=== PATIENT | female | born 1940 | race Caucasian/White ===

== ENCOUNTER → 2017-01-23 | Outpatient (CLI) | payer BC ==
[~2017-01-23] MED LIST: ASPEC81 PO; ATEN-173 PO; BNT20 PO; CLR10 PO; DOXY25TA11 PO; DOXY25TA21 PO; DYZ PO; HYDR-5688 PO; MAGN400T6 PO; MXRAIN INH; NAPR220T PO; NTRSL3 UT; POTA-327 PO; PRLSR20 PO; SIMV10TA2 PO; VERA120T15 PO
[2017-01-23 09:48] LABS: BASO % 0.5 %; BASO ABS # 0.03 K/uL (0-0.2); COMPLETE YES; EOS % 5.3 %; HEMATOCRIT 39.6 % (37-47); IG% 0.2 %; LYMPH ABS # 1.54 K/uL (1.2-3.4); MEAN CELL VOLUME 95.2 fL (80-100); MEAN CORPUSCULAR HGB CONC 33.6 g/dl (32-36); MEAN PLATELET VOLUME 10.2 fL (7.4-10.4); MONO % 8.4 %; NEUT % 57.6 %; PLATELET COUNT 138 K/uL (130-400); RED BLOOD COUNT 4.16 M/uL (4.2-5.4)
[2017-01-23 10:59] LABS: ALKALINE PHOSPHATASE 78 U/L (45-117); ALT/SGPT 20 U/L (12-78); AST/SGOT 20 U/L (15-37); BLOOD UREA NITROGEN 21 mg/dl (7-18); BUN/CREATININE RATIO 24.9 (10-20); CALCIUM 8.9 mg/dl (8.5-10.1); CARBON DIOXIDE 30 mmol/L (21-32); CHLORIDE 104 mmol/L (98-107); CHOLESTEROL 134 mg/dl (0-200); CHOLESTEROL/HDL RATIO 2.1; CREATININE 0.85 mg/dl (0.60-1.20); GLUCOSE 79 mg/dl (70-99); HDL CHOLESTEROL 64 mg/dl; POTASSIUM 3.8 mmol/L (3.5-5.1); SODIUM 142 mmol/L (136-145)
[2017-01-23 11:12] LABS: LDL CHOLESTEROL CALCULATED 53 mg/dl; TRIGLYCERIDES 87 mg/dl (0-150); VERY LOW DENSITY LIPOPROT CALC 17 mg/dl
== END | disposition home or self-care (01) ==
LOC: C.LAB1850 08:43
PROVIDERS: ATTEND Internal Medicine
DX: I10 Essential (primary) hypertension (principal); R20.0 Anesthesia of skin; R20.2 Paresthesia of skin; E78.5 Hyperlipidemia, unspecified; E55.9 Vitamin D deficiency, unspecified; R00.2 Palpitations

== ENCOUNTER → 2017-02-17 | Outpatient (CLI) | payer BC ==
--- NOTE | 2017-02-17 13:59 | DIAGNOSTIC IMAGING REPORT ---
RIGHT SHOULDER MIN 2 VIEWS ROUTINE CLINICAL HISTORY: Right shoulder pain following fall. COMPARISON: None FINDINGS: There are right axillary surgical clips. There is severe osteoarthritis of the right glenohumeral joint and moderate arthritis of the acromioclavicular joint. A small calcific density adjacent to the right right is likely chronic. There is no acute fracture. IMPRESSION: 1. No acute fracture or dislocation of the right shoulder. 2. Severe arthritis of the right glenohumeral joint and moderate arthritis of the acromioclavicular joint. Electronically signed by: Elvin Ragsdale M.D. 02/17/2017 1:58 PM Dictated Date/Time: 02/17/2017 1:56 PM
--- NOTE | 2017-02-17 14:07 | DIAGNOSTIC IMAGING REPORT ---
CT OF THE CHEST WITHOUT IV CONTRAST CLINICAL HISTORY: Pulmonary nodule. COMPARISON STUDY: CT scan of the cervical spine dated 02/27/2016 CT DOSE: 363.43 mGy.cm TECHNIQUE: CT of the thorax was performed from the thoracic inlet to the lung bases. Images are reviewed in the axial, sagittal, and coronal planes. IV contrast was not administered for this examination. FINDINGS: Thyroid: Imaged portions of the thyroid gland are normal in appearance. 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 There is no aneurysmal aortic dilatation. Heart: The heart is normal in size and configuration, without pericardial effusion. Lungs and pleural spaces: No pleural effusions are visualized. There is a stable 3.5 mm right upper lobe pulmonary nodule. No further follow-up of this lesion is advocated. There are tiny subpleural densities within the right middle lobe. Distribution raises the possibility of post radiation change. Mediastinum: There is no mediastinal lymphadenopathy. Natalia: There is no evidence of pathologic hilar adenopathy given the limitations of a noncontrast study Axilla: There is no evidence of pathologic axillary lymphadenopathy Upper abdomen: Partially visualized upper abdominal viscera is within normal limits. Skeletal structures: There is a 7 mm T5 lytic focus of questionable clinical significance. IMPRESSION: 1. Stable 3.5 mm right upper lobe pulmonary nodule. No further follow-up of this nodule is advocated 2. Tiny subpleural densities within the right middle lobe. The distribution raises the possibility of post relation change Electronically signed by: Darryl Woodard M.D. 02/17/2017 2:05 PM Dictated Date/Time: 02/17/2017 1:57 PM
== END | disposition home or self-care (01) ==
LOC: C.CTS 13:15
PROVIDERS: ATTEND Internal Medicine
DX: M25.511 Pain in right shoulder (principal); R91.1 Solitary pulmonary nodule

== ENCOUNTER 2017-06-18 14:36 | Emergency (ER) | payer BC ==
[~2017-06-18] VITALS: Ht 167.6 cm; Wt 67.8 kg
[~2017-06-18 14:36] MED LIST changes: -DOXY25TA21 PO; -HYDR-5688 PO
[2017-06-18 14:41] VITALS: TEMP 36.5; Ht 167.6 cm; Wt 67.8 kg
[2017-06-18] MEDS ORDERED: DOXY25TA21 PO (15:26)
[2017-06-18] MEDS ORDERED: BNT20 PO (15:26)
--- NOTE | 2017-06-18 15:47 | DIAGNOSTIC IMAGING REPORT ---
HEAD CT NONCONTRAST CT DOSE: 905.55 mGy.cm HISTORY: fall onto face with headache, +n/-v, dizziness, facial pain and neck p TECHNIQUE: Multiaxial CT images of the head were performed without the use of intravenous contrast. Automated exposure control was utilized for this study. A dose lowering technique was utilized adhering to the principles of ALARA. Comparison: Head CT 02/27/2016. Findings: The paranasal sinuses and mastoid air cells are clear. The calvarium and skull base are intact. There is no mass, hematoma, midline shift, acute infarct. White matter hypodensity is nonspecific but suggestive of microvascular ischemic change. The ventricles and sulci demonstrate mild age-related involutional changes. Impression: No significant change compared to the prior study. No acute intracranial abnormality. Electronically signed by: Keith Cohen M.D. 06/18/2017 3:46 PM Dictated Date/Time: 06/18/2017 3:43 PM
--- NOTE | 2017-06-18 15:53 | DIAGNOSTIC IMAGING REPORT ---
CERVICAL SPINE CT CT DOSE: HISTORY: Neck pain. Fall. TECHNIQUE: Multiaxial CT images of the cervical spine were performed and reformatted in the sagittal and coronal plane without the use of contrast. A dose lowering technique was utilized adhering to the principles of ALARA. COMPARISON: Cervical spine CT 02/27/2016. FINDINGS: No fractures. Stable 1 mm of anterolisthesis of C2 on C3. Moderate to severe disc space narrowing from C3 through T2. There are associated endplate osteophytes. This is not significantly changed. Multiple subcentimeter hypodense nodule within the right thyroid lobe. There is also a dominant 12 mm hypodense nodule within the right thyroid lobe. These are not significantly changed.. Prevertebral soft tissues and the C1-C2 interval are intact. No pneumothorax. IMPRESSION: No fractures within the cervical spine. Moderate to severe multilevel cervical spondylosis. Electronically signed by: Keith Cohen M.D. 06/18/2017 3:51 PM Dictated Date/Time: 06/18/2017 3:46 PM
--- NOTE | 2017-06-18 15:55 | DIAGNOSTIC IMAGING REPORT ---
CT SCAN OF THE FACIAL BONES WITHOUT IV CONTRAST CLINICAL HISTORY: Fall. COMPARISON STUDY: CT of the brain performed concurrently on 06/18/2017. TECHNIQUE: High-resolution CT scan of the facial bones is performed. Images are reviewed in the axial, sagittal, and coronal planes. IV contrast was not administered for this examination. A dose lowering technique was utilized adhering to the principles of ALARA. FINDINGS: The skeletal structures are osteopenic. There are comminuted bilateral nasal bone fractures, minimally depressed on the right. The bony nasal septum appears intact. The bony orbits are intact and the orbital contents are within normal limits noting bilateral ocular lens implants. The zygomatic arches and pterygoid plates are preserved. The maxilla and mandible are intact. Degenerative change is noted at the temporomandibular joints. There are no layering blood products within the paranasal sinuses. Findings suggest previous paranasal sinus surgery. Trace mucosal thickening seen in the right frontal sinuses and the ethmoid sinuses. The mastoid air cells are clear. The visualized calvarium and upper cervical spine are maintained noting advanced cervical spondylosis. Partially imaged brain parenchyma is within normal limits noting age-related involutional change. IMPRESSION: 1. There are comminuted bilateral nasal bone fractures. 2. No additional facial bone fracture is seen. Electronically signed by: Terence Reyes M.D. 06/18/2017 3:53 PM Dictated Date/Time: 06/18/2017 3:47 PM
--- NOTE | 2017-06-18 16:17 | EMERGENCY ROOM VISIT NOTE ---
ED Visit Note First contact with patient: 14:41 This Patient was discussed with the physician Armhole Baster Hand, Rohan Rodriguez PA-C. The pertinent historical and physical exam findings were confirmed. I agree with the studies ordered and with the interpretations of these studies. I agree with the disposition and care plan.
[2017-06-18 16:42] VITALS: BP 121/66; PULSE 60; O2SAT 95
[2017-06-18] MEDS ORDERED: HYDR-5688 PO (16:43)
[2017-06-18] MEDS ORDERED: HYDROCODONE/ACETAMOPHEN 5/325MG TAB PO ONE (16:45)
--- NOTE | 2017-06-19 00:14 | EMERGENCY ROOM VISIT NOTE ---
ED Visit Note First contact with patient: 14:41 Chief Complaint: Thinking may have a head injury and a broken nose. History of Present Illness: Ms. Stroud is a 77-year-old white female who ambulates into the ED accompanied by her complaining of a possible head injury and nasal fracture. Historically patient reports she felt 2 years ago while on a cruise and sustained a concussion. Patient reports 2 days ago she was pushing a cart across the room. The car ran into a small bump on the floor and she pushed harder. As she pushed harder the car gave way and she fell onto her face. She reports before the fall she was not experiencing lightheadedness dizziness, the time of the fall she did not have a loss of consciousness. She does report at the time of the fall she had bilateral nasal bleeding that she reports was severe. She applied direct pressure to the nasal bones and felt crepitus but reports she control bleeding. Since the fall she reports she has been having a global headache and nasal pain. She describes her headache as an achy sensation. She rates her discomfort 6/10. The pain is nonradiating. Her pain worsens when she moves in the sitting to standing position. She has not identified any alleviating factors related to the pain. She has been using ibuprofen without relief of her discomfort. Associated with her pain she also reports she has having nasal plan. She describes this as a throbbing discomfort. She rates her discomfort 4/10. Her pain is nonradiating. Her pain worsens with palpation. She has not identified any alleviating factors related to the pain as previously noted she has been using ibuprofen without relief of this discomfort. Associated with her symptoms she reports she is having lightheadedness and dizziness, neck pain, nausea but no vomiting. She denies visual changes, hearing changes, difficulty speaking, difficulty swallowing, difficulty coordinating body movements, chest pain, shortness of breath, abdominal pain, extremity pain, extremity weakness/numbness/tingling. Review of Systems: As noted above in history of present illness. All body systems were reviewed and found to be negative as noted above. Past Medical History: As noted above and breast cancer, asthma, aortic dissection, hypertension, coronary artery disease, obstructive sleep apnea, unspecified stomach disorder, status post bilateral mastectomies, cholecystectomy, tonsillectomy and bilateral knee arthroplasties. Current Medications: Medications Dose Route/Sig Max Daily Dose Days Date Category Dose Instructions Ra Sleep Aid (Doxylamine Succinate (Sleep)) 25 Mg Tab 25 Mg PO HS 06/18/17 Reported Dicyclomine HCl 20 Mg Tab 20 Mg PO BID 06/18/17 Reported Aleve (Naproxen Sodium) 220 Mg Tab 220 Mg PO BID 02/27/16 Reported Nitrostat (Nitroglycerin) 0.3 Mg Tab 0.3 Mg UT PRN 06/27/11 Reported Ecotrin Or Generic * (Aspirin) 81 Mg Ectab 81 Mg PO DAILY 06/27/11 Reported Calan (Verapamil HCl) 120 Mg Tab 180 Mg PO 11/30/08 Reported Tenormin (Atenolol) 25 Mg Tab 25 Mg PO DAILY 11/30/08 Reported Prilosec (Omeprazole) 20 Mg Capcr 20 Mg PO DAILY 11/30/08 Reported Claritin (Loratadine) 10 Mg Tab 10 Mg PO DAILY 11/30/08 Reported Zocor (Simvastatin) 10 Mg Tab 20 Mg PO QPM 11/30/08 Reported Allergies to Medications: Chlorhexidine, penicillins, iodine, sulfa. Social History: Patient is not employed; she lives with her and feels safe in her home environment; she denies tobacco use; she admits to social alcohol use. Physical Examination: Vital Signs: Date Time Temp Pulse Resp B/P (MAP) Pulse Ox O2 Delivery O2 Flow Rate FiO2 06/18/17 16:42 60 18 121/66 95 Room Air 06/18/17 14:41 36.5 69 16 134/83 97 Room Air GENERAL: 77-year-old female in mild to moderate distress due to pain, nontoxic- appearing, afebrile and hemodynamically stable. NEUROLOGICAL: Awake, alert and oriented to person, place and time. Answering questions appropriately and following commands. Good hand eye coordination. Cranial nerves II through XII grossly intact. Negative pronator drift test. Good short-term and long-term recall. Normal rapid on a movements of the hands and fingers. Able to spell words backwards. SKIN: Warm, dry and pink. Face: Nose: Superficial abrasions to the right nostril with no active bleeding or signs of infection. HEENT: Atraumatic and normocephalic. Skull: Mild tenderness in the frontal area without bony deformity, bony crepitus, swelling or ecchymosis. No raccoon' s eyes or nicole signs. No drainage from the ears of the nares; no hemotympanum. Face: Nasal tenderness over both nasal bones and over the nostrils. There is deformity with the nose deviated to the left. Nostrils are patent. No blood in the nasal vault. PERRLA. EOMI without nystagmus. Sclera white and conjunctiva pink. No malocclusion. No intraoral trauma. Airway patent. Speech normal. Trachea midline. No jugular venous distention. BACK: Moderate tenderness over the entire cervical spine including the bony processes and is paraspinous musculature. I do not appreciate any bony step- offs, swelling, ecchymosis or bony crepitus. Do not appreciate any paraspinous muscle spasms. No tenderness throughout the thorax or the lumbar bony spine. No CVA tenderness. THORAX: Lungs sounds are clear to auscultation and equal bilaterally with symmetrical chest wall. No crepitus, tenderness, subcutaneous air or deformities noted. HEART: Regular rate and rhythm. No gallops, rubs or murmurs are appreciated. ABDOMEN: Flat, soft and nontender. Positive bowel sounds in all quadrants. No guarding, rigidity or organomegaly. EXTREMITIES: Moves all extremities well on command and with purpose. All distal neurovascular statuses are intact and equal bilaterally. No tenderness over the shoulders, elbows, forearms, wrists, hips, knees, ankles. 4/5 muscle strength in all movements of the upper and lower extremity joints against resistance. ED Course: Patient is assessed as noted above. Patient's medication list was reviewed. Cervical Spine CT: Was reviewed by myself and read by the radiologist showing no fractures of the cervical spine. Moderate to severe multilevel cervical spondylolysis. Head CT: Was reviewed by myself and read by the radiologist showing no acute intracranial abnormality. This was compared to her previous and shows no significant changes. Facial CT: Was reviewed by myself and read by the radiologist showing bilateral comminuted nasal bone fractures. Patient was given one [place] 5/325 mg tablet by mouth for pain. Patient was assessed multiple times during her stay in the emergency department. Patient's case was reviewed with Dr. Angulo; he independently assessed the patient and we agreed on diagnostic approach, treatment, disposition and plan. Patient were educated about today's findings and instructed on her treatment plan; she verbalized understanding and agreement with this plan. Clinical Impression: Bilateral comminuted nasal bone fractures. Closed head injury. Disposition: Patient discharged home in stable condition accompanied by her ; prior to departure she was reassessed and subjectively reported she was having more pain in the face and rated her discomfort 8/10. Plan: Patient was encouraged to continue her current medications as prescribed. Patient was placed on a sliding pain medication scale of acetaminophen and [place] ; she was given appropriate narcotic precautions and her name was checked in the state database and no red flags were noted. Patient was encouraged to rest for the next few days. Patient was encouraged use ice on her nasal pain and swelling. Patient was encouraged to use a walker to help her balance. Patient was educated on signs of worsening head injury. Patient was encouraged to follow-up with family physician for recheck and possible referral to neurology, concussion clinic, ENT and/or plastic surgery. Patient was encouraged return ED for worsening/uncontrolled pain, worsening signs of head injury or any new/concerning symptoms.
== END 2017-06-18 16:53 | disposition home or self-care (01) ==
LOC: C.EDB 14:38
DX: S02.2XXA Fracture of nasal bones, initial encounter for closed fracture (principal); S09.90XA Unspecified injury of head, initial encounter; W19.XXXA Unspecified fall, initial encounter; I10 Essential (primary) hypertension; I25.10 Atherosclerotic heart disease of native coronary artery without angina pectoris; J45.909 Unspecified asthma, uncomplicated; G47.33 Obstructive sleep apnea (adult) (pediatric); Z85.3 Personal history of malignant neoplasm of breast; Z87.19 Personal history of other diseases of the digestive system; Z90.13 Acquired absence of bilateral breasts and nipples; Z90.49 Acquired absence of other specified parts of digestive tract; Z79.82 Long term (current) use of aspirin; Z79.899 Other long term (current) drug therapy; Z88.0 Allergy status to penicillin; Z88.2 Allergy status to sulfonamides; Z88.8 Allergy status to other drugs, medicaments and biological substances

== ENCOUNTER → 2017-10-29 | Outpatient (CLI) | payer BC ==
[~2017-10-29] MED LIST changes: -DOXY25TA11 PO; +DOXY25TA21 PO; -DYZ PO; +HYDR-5688 PO; -MAGN400T6 PO; -MXRAIN INH; -POTA-327 PO
[2017-10-29 14:42] LABS: BLOOD UREA NITROGEN 22 mg/dl (7-18); CREATININE 0.79 mg/dl (0.60-1.20)
== END | disposition home or self-care (01) ==
LOC: C.LAB 13:24
PROVIDERS: ATTEND Physician Assistant
DX: H93.11 Tinnitus, right ear (principal)

== ENCOUNTER → 2017-10-30 | Outpatient (CLI) | payer BC ==
[~2017-10-30] MED LIST changes: +GADAVIST IV PRN
--- NOTE | 2017-10-30 10:45 | DIAGNOSTIC IMAGING REPORT ---
BRAIN COMBO FOR IAC HISTORY: 77 years-old Female R26.89 Balance disorderPatient has difficulty with balance. Ple chronic difficulty with balance seen. The patient had reported multiple falls and concussions COMPARISON: MRI the brain 08/05/2008, CT head 06/18/2017 TECHNIQUE: Multiplanar multisequence MRI of the brain was obtained both with and without the use of 6 mL Gadavist utilizing internal auditory canal protocol. FINDINGS: The large [id number] laboratory apparatus glass blower localizer images demonstrate no gross abnormality. There is no restricted diffusion to suggest acute infarction. Minimal T2 shine through is noted within the left parieto-occipital lobe on image 16 series 4. The midline fractures including the corpus callosum, brainstem, optic chiasm, infundibulum, pituitary and pineal glands are unremarkable in the sagittal T1 series. No cerebellar tonsillar herniation. Degenerative changes of the imaged cervical spine. No pathologic blooming artifact identified. There is no acute intracranial hemorrhage, midline shift, abnormal extra-axial collections or hydrocephalus. Mild to moderate atrophy has slightly progressed and there is progressively worsened multifocal patchy and somewhat confluent areas of T2/FLAIR prolongation within the subcortical, deep and periventricular white matter of the cerebral hemispheres bilaterally suggesting chronic microvascular ischemic changes. The major flow voids at the level of the skull base appear patent. Mastoid air cells are clear. Paranasal sinuses are also generally clear. The orbits appear symmetric. Soft tissues and calvarium are unremarkable. The course of the 7th and 8th cranial nerves are within normal limits bilaterally. No mass of the internal auditory canal or cerebellar pontine angles. The cisternal portions of the bilateral 5th cranial nerves are within normal limits. There is no abnormal intra-axial or extra-axial enhancement identified. No abnormal enhancement of the internal artery canals. IMPRESSION: 1. No acute intracranial abnormality identified. No abnormal enhancement or acute infarction. 2. Bilateral internal auditory canals, 7th and 8th cranial nerves appear to be within normal limits. 3. Progressive mild to moderate brain atrophy with progressively worsened chronic microvascular ischemic changes. The above report was generated using voice recognition software. It may contain grammatical, syntax or spelling errors. Electronically signed by: Patrice Torres M.D. 10/30/2017 10:44 AM Dictated Date/Time: 10/30/2017 10:35 AM
== END | disposition home or self-care (01) ==
LOC: C.MRIBC 09:03
PROVIDERS: ATTEND Physician Assistant
DX: R26.89 Other abnormalities of gait and mobility (principal)

== ENCOUNTER → 2017-11-07 | Outpatient (CLI) | payer BC ==
[~2017-11-07] MED LIST changes: -GADAVIST IV PRN
== END | disposition home or self-care (01) ==
LOC: C.LAB1850 07:52
PROVIDERS: ATTEND Psychiatry & Neurology Neurology
DX: E53.8 Deficiency of other specified B group vitamins (principal); R26.89 Other abnormalities of gait and mobility; G62.9 Polyneuropathy, unspecified

== ENCOUNTER → 2017-12-01 | Outpatient (CLI) | payer BC ==
[2017-12-01 15:19] LABS: BLOOD UREA NITROGEN 20 mg/dl (7-18); CALCIUM 9.5 mg/dl (8.5-10.1); CARBON DIOXIDE 31 mmol/L (21-32); CREATININE 0.74 mg/dl (0.60-1.20); GLUCOSE 83 mg/dl (70-99); POTASSIUM 3.9 mmol/L (3.5-5.1); SODIUM 136 mmol/L (136-145)
== END ==
LOC: C.LABBC 12:48
PROVIDERS: ATTEND Nurse Practitioner Adult Health
DX: I10 Essential (primary) hypertension (principal)

== ENCOUNTER 2017-12-16 19:48 | Emergency (ER) | payer BC ==
[~2017-12-16] VITALS: Ht 162.6 cm; Wt 63.1 kg
[2017-12-16 19:53] VITALS: TEMP 36.8; Ht 162.6 cm; Wt 63.1 kg
[2017-12-16] MEDS ORDERED: ONDANSETRON INJ 2 MG/ML 2 ML VIAL IV STA (20:07)
[2017-12-16] MEDS ORDERED: SODIUM CHLORIDE 0.9% 1000ML 1,000 ML IV STA (20:07)
[2017-12-16] MEDS ORDERED: MoRPHine SULFATE 10 MG/ML CARP/VIAL IV STA (20:07)
[2017-12-16] MEDS ORDERED: ASPI81TA28 PO (20:34)
[2017-12-16] MEDS ORDERED: VERA180T33 PO (20:34)
[2017-12-16] MEDS ORDERED: CHOL20009 PO (20:34)
[2017-12-16] MEDS ORDERED: POTA10CA28 PO (20:34)
[2017-12-16 20:37] LABS: BASO % 0.5 %; BASO ABS # 0.03 K/uL (0-0.2); EOS % 3.6 %; EOS ABS # 0.24 K/uL (0-0.5); HEMOGLOBIN 13.7 g/dL (12.0-16.0); IG# 0.01 K/uL (0.00-0.02); LYMPH % 24.7 %; LYMPH ABS # 1.64 K/uL (1.2-3.4); MEAN CELL VOLUME 96.2 fL (80-100); MEAN CORPUSCULAR HEMOGLOBIN 32.9 pg (25-34); MEAN CORPUSCULAR HGB CONC 34.3 g/dl (32-36); MEAN PLATELET VOLUME 9.6 fL (7.4-10.4); NEUT ABS # 3.92 K/uL (1.4-6.5); PLATELET COUNT 162 K/uL (130-400); RED CELL DISTRIBUTION WIDTH SD 45.3 fL (36.4-46.3); WHITE BLOOD COUNT 6.64 K/uL (4.8-10.8)
[2017-12-16 21:01] LABS: ALBUMIN 3.8 gm/dl (3.4-5.0); CALCIUM 9.4 mg/dl (8.5-10.1); CREATININE 0.75 mg/dl (0.60-1.20); POTASSIUM 3.8 mmol/L (3.5-5.1)
--- NOTE | 2017-12-16 21:03 | DIAGNOSTIC IMAGING REPORT ---
ABD/PELVIS NO IV OR ORAL CONT CLINICAL HISTORY: 77 years-old Female presenting with diffuse abd pain . TECHNIQUE: Multidetector CT of the abdomen and pelvis was performed without the use of intravenous contrast. IV contrast: None. A dose lowering technique was used consistent with the principles of ALARA (as low as reasonably achievable). COMPARISON: 11/02/2007. CT DOSE (mGy.cm): The estimated cumulative dose is 330.72 mGy.cm. FINDINGS: Hogshead Mat Inspector topogram: Cholecystectomy clips. Lung bases: Minimal basilar opacities, likely atelectasis. Normal heart size. No pericardial or pleural effusion. Liver: Normal morphology. Normal density. Biliary: No gross biliary ductal dilatation allowing for noncontrast technique. Gallbladder surgically absent. Pancreas: Normal noncontrast appearance. Spleen: Normal noncontrast appearance. Adrenal glands: Nodular thickening of the left adrenal gland. Right adrenal gland normal. Kidneys and ureters: Normal noncontrast appearance. No nephrolithiasis. No hydronephrosis. Ureters nondistended but poorly visualized in the mid to distal portions. Bladder: Normal. Pelvic organs: Uterus surgically absent. No adnexal masses. Bowel: Diverticulosis of the sigmoid and descending colon. Mild stool burden. No pericolonic inflammatory change. The appendix is not visualized though no inflammatory changes evident in the cecum. Fluid mildly distends the small bowel though no bowel obstruction is evident. No bowel wall thickening. Peritoneal cavity: No free fluid or intraperitoneal gas. Lymph nodes: No gross lymphadenopathy allowing for noncontrast technique. Vasculature: Atherosclerosis of the normal caliber abdominal aorta. Abdominal wall: Diastasis of the rectus abdominis. Postsurgical changes noted in the infraumbilical ventral abdominal wall. Musculoskeletal: Degenerative changes of the spine. IMPRESSION: 1. No acute intra-abdominal pathology. 2. Fluid noted throughout the small bowel without evidence of bowel obstruction or bowel wall thickening. This could relate to the presence of a mild enteritis or celiac disease among other potential etiologies. 3. Diverticulosis. Electronically signed by: Sudhir Shin M.D. 12/16/2017 9:02 PM Dictated Date/Time: 12/16/2017 8:56 PM
[2017-12-16 21:04] LABS: TOTAL PROTEIN 7.1 gm/dl (6.4-8.2)
[2017-12-16 21:58] VITALS: BP 155/73; PULSE 80; O2SAT 98
[2017-12-16] MEDS ORDERED: ONDANSETRON HOME PACK 4MG OD TAB PO ONE (22:00)
--- NOTE | 2017-12-16 22:03 | EMERGENCY ROOM VISIT NOTE ---
History Report prepared by Tana: Sia Bunn Under the Supervision of: Dr. Kevan Neely D.O. First contact with patient: 19:55 Chief Complaint: GI ASSESSMENT Stated Complaint: STOMACH AND BOWEL PAIN History of Present Illness The patient is a 77 year old female who presents to the Emergency Room with complaints of persistent abdominal pain starting at 1730 today. The patient had some soup for dinner and started having terrible abdominal pain soon afterwards. She describes the pain as feeling like she is going to explode. Pain was extremely severe on presentation. She tried drinking some cola to no significant relief. She does not identify anything else that improves or worsens her pain. She has had some looser stool but no diarrhea. She has had some burning with urination which started today. She denies any nausea, vomiting , diarrhea, chest pain, SOB, or rash. She denies any recent antibiotic use. She has a history of cholecystectomy, appendectomy, and hysterectomy. Source of History: patient Onset: 1730 Position: abdomen Symptom Intensity: terrible Quality: other (like she is "going to explode") Timing: other (persistent) Associated Symptoms: + urinary symptoms, No chest pain, No SOB, No nausea, No vomiting, No diarrhea, No rash Review of Systems See HPI for pertinent positives & negatives. A total of 10 systems reviewed and were otherwise negative. Past Medical & Surgical Medical Problems: (1) Aortic dissection (2) Asthma (3) Benign hypertension (4) Coronary artery disease (5) Obesity (6) Obstructive sleep apnea syndrome Surgical Problems: (1) Hx of tonsillectomy (2) S/P cholecystectomy Family History Diabetes mellitus FHx: cancer FHx: gallbladder disease FHx: heart disease Hypertension Social History Smoking Status: Former Smoker Alcohol Use: occasionally Marital Status: Housing Status: lives with significant other Occupation Status: retired Current/Historical Medications Scheduled Aspirin (Aspirin Ec), 81 MG PO DAILY Atenolol (Tenormin), 12.5 MG PO DAILY Cholecalciferol (Vitamin D), 2,000 UNITS PO DAILY Dicyclomine HCl (Dicyclomine HCl), 20 MG PO BID Doxylamine Succinate (Sleep) (Ra Sleep Aid), 25 MG PO HS Loratadine (Claritin), 10 MG PO DAILY Naproxen Sodium (Aleve), 220 MG PO BID Nitroglycerin (Nitrostat), 0.3 MG UT PRN Omeprazole (Prilosec), 20 MG PO DAILY Potassium Chloride (Micro-K Ext Rel), 10 MEQ PO UD Simvastatin (Zocor), 20 MG PO QPM Verapamil Hcl (Calan Sr Ext Rel), 180 MG PO DAILY Allergies Coded Allergies: Iodine (Verified Allergy, Intermediate, RASH TO TOPICAL IODINE, 12/16/17) Adhesives (Verified Allergy, Unknown, RED SKIN, 12/16/17) Penicillins (Verified Allergy, Unknown, 12/16/17) Sulfa Drugs (Verified Allergy, Unknown, 12/16/17) Chlorhexidine (Verified Adverse Reaction, Intermediate, SEVERE BURNING WITH CHG WIPES, 12/16/17) Physical Exam Vital Signs Date Time Temp Pulse Resp B/P (MAP) Pulse Ox O2 Delivery O2 Flow Rate FiO2 12/16/17 19:53 36.8 60 18 188/81 97 Room Air Physical Exam GENERAL: Sitting up in bed, alert, well appearing, well nourished, no distress, non-toxic EYE EXAM: normal conjunctiva. OROPHARYNX: no exudate, no erythema, lips, buccal mucosa, and tongue normal and mucous membranes are moist NECK: supple, no nuchal rigidity, no adenopathy, non-tender LUNGS: Clear to auscultation. Normal chest wall mechanics HEART: no murmurs, S1 normal and S2 normal ABDOMEN: abdomen soft, multiple old abdominal incisions, minimal diffuse tenderness, normo-active bowel sounds, no masses, no rebound or guarding. BACK: Back is symmetrical on inspection and there is no deformity, no midline tenderness, no CVA tenderness. SKIN: no rashes and no bruising UPPER EXTREMITIES: upper extremities are grossly normal. LOWER EXTREMITIES: No pitting edema. NEURO EXAM: Normal sensorium, cranial nerves II-XII grossly intact, normal speech, no gross weakness of arms, no gross weakness of legs. Medical Decision & Procedures ER Provider Diagnostic Interpretation: Radiology results as stated below per my review and the radiologist's interpretation: ABD/PELVIS NO IV OR ORAL CONT CLINICAL HISTORY: 77 years-old Female presenting with diffuse abd pain . TECHNIQUE: Multidetector CT of the abdomen and pelvis was performed without the use of intravenous contrast. IV contrast: None. A dose lowering technique was used consistent with the principles of ALARA (as low as reasonably achievable). COMPARISON: 11/02/2007. CT DOSE (mGy.cm): The estimated cumulative dose is 330.72 mGy.cm. FINDINGS: Advertising Campaign Manager topogram: Cholecystectomy clips. Lung bases: Minimal basilar opacities, likely atelectasis. Normal heart size. No pericardial or pleural effusion. Liver: Normal morphology. Normal density. Biliary: No gross biliary ductal dilatation allowing for noncontrast technique. Gallbladder surgically absent. Pancreas: Normal noncontrast appearance. Spleen: Normal noncontrast appearance. Adrenal glands: Nodular thickening of the left adrenal gland. Right adrenal gland normal. Kidneys and ureters: Normal noncontrast appearance. No nephrolithiasis. No hydronephrosis. Ureters nondistended but poorly visualized in the mid to distal portions. Bladder: Normal. Pelvic organs: Uterus surgically absent. No adnexal masses. Bowel: Diverticulosis of the sigmoid and descending colon. Mild stool burden. No pericolonic inflammatory change. The appendix is not visualized though no inflammatory changes evident in the cecum. Fluid mildly distends the small bowel though no bowel obstruction is evident. No bowel wall thickening. Peritoneal cavity: No free fluid or intraperitoneal gas. Lymph nodes: No gross lymphadenopathy allowing for noncontrast technique. Vasculature: Atherosclerosis of the normal caliber abdominal aorta. Abdominal wall: Diastasis of the rectus abdominis. Postsurgical changes noted in the infraumbilical ventral abdominal wall. Musculoskeletal: Degenerative changes of the spine. IMPRESSION: 1. No acute intra-abdominal pathology. 2. Fluid noted throughout the small bowel without evidence of bowel obstruction or bowel wall thickening. This could relate to the presence of a mild enteritis or celiac disease among other potential etiologies. 3. Diverticulosis. Electronically signed by: Sudhir Shin M.D. 12/16/2017 9:02 PM Dictated Date/Time: 12/16/2017 8:56 PM Laboratory Results 12/16/17 20:15 Red Blood Count 4.16, Mean Corpuscular Volume 96.2, Mean Corpuscular Hemoglobin 32.9, Mean Corpuscular Hemoglobin Concent 34.3, Mean Platelet Volume 9.6, Neutrophils (%) (Auto) 59.0, Lymphocytes (%) (Auto) 24.7, Monocytes (%) (Auto) 12.0, Eosinophils (%) (Auto) 3.6, Basophils (%) (Auto) 0.5, Neutrophils # (Auto ) 3.92, Lymphocytes # (Auto) 1.64, Monocytes # (Auto) 0.80, Eosinophils # (Auto ) 0.24, Basophils # (Auto) 0.03 12/16/17 20:15 Test 12/16/17 20:15 White Blood Count 6.64 K/uL (4.8-10.8) Red Blood Count 4.16 M/uL (4.2-5.4) Hemoglobin 13.7 g/dL (12.0-16.0) Hematocrit 40.0 % (37-47) Mean Corpuscular Volume 96.2 fL (80-100) Mean Corpuscular Hemoglobin 32.9 pg (25-34) Mean Corpuscular Hemoglobin Concent 34.3 g/dl (32-36) Platelet Count 162 K/uL (130-400) Mean Platelet Volume 9.6 fL (7.4-10.4) Neutrophils (%) (Auto) 59.0 % Lymphocytes (%) (Auto) 24.7 % Monocytes (%) (Auto) 12.0 % Eosinophils (%) (Auto) 3.6 % Basophils (%) (Auto) 0.5 % Neutrophils # (Auto) 3.92 K/uL (1.4-6.5) Lymphocytes # (Auto) 1.64 K/uL (1.2-3.4) Monocytes # (Auto) 0.80 K/uL (0.11-0.59) Eosinophils # (Auto) 0.24 K/uL (0-0.5) Basophils # (Auto) 0.03 K/uL (0-0.2) RDW Standard Deviation 45.3 fL (36.4-46.3) RDW Coefficient of Variation 13.0 % (11.5-14.5) Immature Granulocyte % (Auto) 0.2 % Immature Granulocyte # (Auto) 0.01 K/uL (0.00-0.02) Urine Color YELLOW Urine Appearance CLEAR (CLEAR) Urine pH 8.0 (4.5-7.5) Urine Specific [place] 1.010 (1.000-1.030) Urine Protein NEG (NEG) Urine Glucose (UA) NEG (NEG) Urine Ketones NEG (NEG) Urine Occult Blood NEG (NEG) Urine Nitrite NEG (NEG) Urine Bilirubin NEG (NEG) Urine Urobilinogen NEG (NEG) Urine Leukocyte Esterase TRACE (NEG) Urine WBC (Auto) 1-5 /hpf (0-5) Urine RBC (Auto) 0-4 /hpf (0-4) Urine Hyaline Casts (Auto) 0 /lpf (0-5) Urine Epithelial Cells (Auto) 0-5 /lpf (0-5) Urine Bacteria (Auto) NEG (NEG) Anion Gap 6.0 mmol/L (3-11) Est Creatinine Clear Calc Drug Dose 54.3 ml/min Estimated GFR () 89.1 Estimated GFR (Non- 76.9 BUN/Creatinine Ratio 33.6 (10-20) Calcium Level 9.4 mg/dl (8.5-10.1) Total Bilirubin 0.3 mg/dl (0.2-1) Direct Bilirubin 0.1 mg/dl (0-0.2) Aspartate Amino Transf (AST/SGOT) 20 U/L (15-37) Alanine Aminotransferase (ALT/SGPT) 21 U/L (12-78) Alkaline Phosphatase 101 U/L (45-117) Total Protein 7.1 gm/dl (6.4-8.2) Albumin 3.8 gm/dl (3.4-5.0) Lipase 397 U/L (73-393) Laboratory results per my review. Medications Administered Medications (Trade) Dose Ordered Sig/Yeny Route Start Time Stop Time Status Last Admin Dose Admin Sodium Chloride 1,000 ml @ 999 mls/hr Q1H1M STAT IV 12/16/17 20:07 12/16/17 21:07 DC 12/16/17 20:22 999 MLS/HR Ondansetron HCl (Zofran Inj) 4 mg NOW STAT IV 12/16/17 20:07 12/16/17 20:08 DC 12/16/17 20:21 4 MG Morphine Sulfate (MoRPHine SULFATE INJ) 6 mg NOW STAT IV 12/16/17 20:07 12/16/17 20:08 DC 12/16/17 20:21 6 MG Ondansetron HCl (ZOFRAN ODT 4MG Home Pack) 1 homepack UD ONCE PO 12/16/17 22:00 12/16/17 22:01 12/16/17 21:58 1 HOMEPACK ED Course ED COURSE: Vital signs were reviewed and showed hypertension. The patients medical record was reviewed The above diagnostic studies were performed and reviewed. ED treatments and interventions as stated above. 2002: The patient was evaluated in room C6. A complete history and physical examination was performed. 2006: Morphine Sulfate 6 mg IV, Zofran Inj 4 mg IV, NSS 1000 ml @ 999 mls/hr IV. 2140: Upon reevaluation, the patient is feeling much better. I discussed my findings with the patient and she understands and agrees with the treatment plan. Based on the patients age, coexisting illnesses, exam and lab findings the decision to treat as an outpatient was made. The patient remained stable while under my care. The patient appeared well at the time of discharge. 2199: Zofran Odt 4 mg 1 homepack PO. Medical Decision Differential diagnoses includes but is not limited to gastritis, peptic ulcer disease, GERD, gallbladder disease, pancreatitis, small bowel obstruction, acute coronary syndrome, pericarditis, ischemic bowel, irritable bowel disease, irritable bowel syndrome, appendicitis, diverticulitis, malignancy, hernia, urinary tract infection, torsion, perforation, trauma, infectious. Patient is a 77-year-old female presents to the ER for cramping throughout her entire abdomen. This started shortly after eating. Does have a previous history of appendectomy, cholecystectomy and complete hysterectomy. No other associated symptoms with the exception of mild burning with urination prior to arrival. Abdominal exam is fairly benign. CBC along with BMP, LFTs, bilirubin was unremarkable. Lipase was essentially normal at 397. CT of her abdomen pelvis without contrast due to allergy shows air-fluid levels in the small bowel suggesting a likely enteritis which is consistent with her history. I did inform her that she will likely have diarrhea and possibly vomiting. She was given IV fluids and morphine. She did feel significant better. She is updated at bedside. She was discharged with Zofran and instructed to return for any worsening symptoms. Discussed with Pt concerning signs and symptoms to watch out for. Pt was instructed to follow up with their PCP and discussed with the patient their option to return to the ED at anytime for persistent or worsening symptoms. The appropriate anticipatory guidance and out-patient management, including indications for return to the emergency department, were explained at length to the patient and understood. Medication Reconcilliation Current Medication List: was personally reviewed by me Blood Pressure Screening Patient's blood pressure: Elevated blood pressure Blood pressure disposition: Referred to PCP Impression Primary Impression: Abdominal pain Scribe Attestation The scribe's documentation has been prepared under my direction and personally reviewed by me in its entirety. I confirm that the note above accurately reflects all work, treatment, procedures, and medical decision making performed by me. Departure Information Dispostion Home / Self-Care Referrals RV. Farley MD (PCP) Forms HOME CARE DOCUMENTATION FORM, IMPORTANT VISIT INFORMATION Patient Instructions Abdominal Pain - [facility], [facility] Additional Instructions Please follow up with your primary care doctor with in the next 24 hours. Any worsening of your symptoms, please return to the ED immediately. This includes any fevers greater than 100.4, worsening pain, chest pain, shortness breath, persistent nausea, vomiting, unable to eat or drink, or any other concerning signs or symptoms from your standpoint. You were given medications during this visit that will inhibit your ability to drive, operate machinery and work. Please do NOT drive, operate machinery, drink alcohol or work for the next 12hrs. Your given 2 tablets of Zofran to take in case she started vomiting while at home. If your pain worsens please return immediately to the ER. Problem Qualifiers Primary Impression: Abdominal pain Abdominal location: unspecified location Qualified Codes: R10.9 - Unspecified abdominal pain
[2017-12-17] MEDS ORDERED: ONDA4TAB46 PO (11:29)
[2017-12-17] MEDS ORDERED: ONDA4TAB10 SL (13:35)
[2017-12-17] MEDS ORDERED: OXYC-57 PO (13:35)
== END 2017-12-16 22:00 | disposition home or self-care (01) ==
LOC: C.EDB 19:51 → C.EDC 22:00
DX: R10.84 Generalized abdominal pain (principal); R30.0 Dysuria; I10 Essential (primary) hypertension; I25.10 Atherosclerotic heart disease of native coronary artery without angina pectoris; Z90.49 Acquired absence of other specified parts of digestive tract; Z90.89 Acquired absence of other organs; J45.909 Unspecified asthma, uncomplicated; Z87.891 Personal history of nicotine dependence; Z90.710 Acquired absence of both cervix and uterus; Z79.82 Long term (current) use of aspirin; Z91.041 Radiographic dye allergy status; Z91.048 Other nonmedicinal substance allergy status; Z88.1 Allergy status to other antibiotic agents; Z88.2 Allergy status to sulfonamides; Z88.8 Allergy status to other drugs, medicaments and biological substances; Z83.3 Family history of diabetes mellitus; Z83.79 Family history of other diseases of the digestive system; Z82.49 Family history of ischemic heart disease and other diseases of the circulatory system

== ENCOUNTER 2017-12-17 10:45 | Emergency (ER) | payer BC ==
[~2017-12-17] VITALS: Ht 157.5 cm; Wt 63.9 kg
[~2017-12-17 10:45] MED LIST changes: -ASPEC81 PO; +ASPI81TA28 PO; +CHOL20009 PO; -HYDR-5688 PO; +POTA10CA28 PO; -VERA120T15 PO; +VERA180T33 PO
[2017-12-17 10:53] VITALS: Ht 157.5 cm; Wt 63.9 kg
[2017-12-17] MEDS ORDERED: ONDA4TAB46 PO (11:29)
[2017-12-17] MEDS ORDERED: SODIUM CHLORIDE 0.9% 1000ML 1,000 ML IV STA (11:40)
[2017-12-17] MEDS ORDERED: KETOROLAC TROMETHAMINE 30 MG/ML VIAL IV STA (11:40)
[2017-12-17] MEDS ORDERED: ONDANSETRON INJ 2 MG/ML 2 ML VIAL IV STA (11:40)
[2017-12-17] MEDS ORDERED: MoRPHine SULFATE 4 MG/ML 1 ML CARP\\VIAL IV PRN (11:45)
[2017-12-17 12:04] LABS: BASO % 0.1 %; BASO ABS # 0.01 K/uL (0-0.2); EOS % 0.1 %; EOS ABS # 0.01 K/uL (0-0.5); HEMATOCRIT 42.2 % (37-47); HEMOGLOBIN 13.9 g/dL (12.0-16.0); IG# 0.01 K/uL (0.00-0.02); LYMPH % 6.1 %; LYMPH ABS # 0.53 K/uL (1.2-3.4); MEAN CELL VOLUME 96.3 fL (80-100); MEAN CORPUSCULAR HEMOGLOBIN 31.7 pg (25-34); MEAN CORPUSCULAR HGB CONC 32.9 g/dl (32-36); MEAN PLATELET VOLUME 9.9 fL (7.4-10.4); MONO % 7.1 %; MONO ABS # 0.61 K/uL (0.11-0.59); NEUT % 86.5 %; NEUT ABS # 7.46 K/uL (1.4-6.5); PLATELET COUNT 151 K/uL (130-400); RED CELL DISTRIBUTION WIDTH CV 13.2 % (11.5-14.5); RED CELL DISTRIBUTION WIDTH SD 46.2 fL (36.4-46.3); WHITE BLOOD COUNT 8.63 K/uL (4.8-10.8)
[2017-12-17 12:12] LABS: PTT PATIENT 24.5 SECONDS (21.0-31.0)
--- NOTE | 2017-12-17 12:19 | DIAGNOSTIC IMAGING REPORT ---
ABDOMEN 2VIEW W/PA CHEST RTN CLINICAL HISTORY: ABDOMINAL PAIN/GI pain COMPARISON STUDY: 10/07/2016. FINDINGS: mild chronic interstitial change throughout both hemithoraces. Small parenchymal infiltrate versus potential nodular pathology medial aspect left base. This measures 2.7 cm maximum dimension. Generalized small bowel ileus versus distal partial small bowel obstructive change. Moderate fecal material throughout the colon. Degenerative changes of the osseous structures throughout. IMPRESSION: 1. Chronic pulmonary interstitial change with a potential superimposed focal infiltrate versus nodule left lung base. 2. CT of the chest is suggested as initial follow-up. 3. Ileus versus partial distal small bowel obstructive change. The above report was generated using voice recognition software. It may contain grammatical, syntax or spelling errors. Electronically signed by: Waylon Villalba M.D. 12/17/2017 12:18 PM Dictated Date/Time: 12/17/2017 12:15 PM
[2017-12-17 12:21] LABS: ALBUMIN 3.7 gm/dl (3.4-5.0); CALCIUM 9.1 mg/dl (8.5-10.1); CREATININE 0.73 mg/dl (0.60-1.20); POTASSIUM 3.5 mmol/L (3.5-5.1)
[2017-12-17 12:24] LABS: TOTAL PROTEIN 7.3 gm/dl (6.4-8.2)
[2017-12-17 12:59] VITALS: TEMP 37
[2017-12-17] MEDS ORDERED: OXYC-57 PO (13:35)
[2017-12-17] MEDS ORDERED: ONDA4TAB10 SL (13:35)
--- NOTE | 2017-12-17 13:36 | EMERGENCY ROOM VISIT NOTE ---
History Report prepared by Tana: Ernestine Crespo Under the Supervision of: Dr. Jass Sanderson D.O. First contact with patient: 11:21 Chief Complaint: GI ASSESSMENT Stated Complaint: FOOD POISONING History of Present Illness The patient is a 77 year old female who presents to the Emergency Room with complaints of worsening diffuse abdominal pain beginning last night. The patient states that she ate a bowl of seafood soup for dinner last night and her symptoms began after this. She reports diffuse abdominal pain and nausea. She was evaluated in the ED last night for her symptoms. She had a CT scan and blood work done at that time. She was feeling better after morphine and Zofran and was discharged home to follow-up with her PCP today. The patient states that she ran out of the Zofran and could not get in to see her PCP today. She is not feeling any better and still complaining of pain that she rates as a 10/ 10 in severity. She returned to the ED for further evaluation. The patient also reports a headache. She denies vomiting and diarrhea. She has not had a bowel movement since she was discharged last night. She has a history of a cholecystectomy. Source of History: patient Onset: last night Position: abdomen Symptom Intensity: 10/10 Timing: worsening Modifying Factors (Relieving): narcotics (morphine), anti-emetics Associated Symptoms: + headache, + nausea, No vomiting, No diarrhea Review of Systems See HPI for pertinent positives & negatives. A total of 10 systems reviewed and were otherwise negative. Past Medical & Surgical Medical Problems: (1) Aortic dissection (2) Asthma (3) Benign hypertension (4) Coronary artery disease (5) Obesity (6) Obstructive sleep apnea syndrome Surgical Problems: (1) Hx of tonsillectomy (2) S/P cholecystectomy Family History Diabetes mellitus FHx: cancer FHx: gallbladder disease FHx: heart disease Hypertension Social History Smoking Status: Never Smoker Alcohol Use: occasionally Marital Status: Housing Status: lives with significant other Occupation Status: retired Current/Historical Medications Scheduled Aspirin (Aspirin Ec), 81 MG PO DAILY Atenolol (Tenormin), 12.5 MG PO DAILY Cholecalciferol (Vitamin D), 2,000 UNITS PO DAILY Dicyclomine HCl (Dicyclomine HCl), 20 MG PO BID Doxylamine Succinate (Sleep) (Ra Sleep Aid), 25 MG PO HS Loratadine (Claritin), 10 MG PO DAILY Naproxen Sodium (Aleve), 220 MG PO BID Nitroglycerin (Nitrostat), 0.3 MG UT PRN Omeprazole (Prilosec), 20 MG PO DAILY Potassium Chloride (Micro-K Ext Rel), 10 MEQ PO UD Simvastatin (Zocor), 20 MG PO QPM Verapamil Hcl (Calan Sr Ext Rel), 180 MG PO DAILY Scheduled PRN Ondansetron Hcl (Zofran), 4 MG PO Q6 PRN for Nausea Allergies Coded Allergies: Iodine (Verified Allergy, Intermediate, RASH TO TOPICAL IODINE, 12/16/17) Adhesives (Verified Allergy, Unknown, RED SKIN, 12/16/17) Penicillins (Verified Allergy, Unknown, 12/16/17) Sulfa Drugs (Verified Allergy, Unknown, 12/16/17) Chlorhexidine (Verified Adverse Reaction, Intermediate, SEVERE BURNING WITH CHG WIPES, 12/16/17) Physical Exam Vital Signs Date Time Temp Pulse Resp B/P (MAP) Pulse Ox O2 Delivery O2 Flow Rate FiO2 12/17/17 12:59 37.0 73 18 135/69 94 Room Air 12/17/17 10:53 36.7 90 18 162/69 96 Room Air Physical Exam CONSTITUTIONAL/VITAL SIGNS: Reviewed / noted above. GENERAL: Non-toxic in appearance. INTEGUMENTARY: Warm, dry, and [place]. HEAD: Normocephalic. EYES: without scleral icterus or trauma. ENT/OROPHARYNX: clear and moist. LYMPHADENOPATHY/NECK: Is supple without lymphadenopathy or meningismus. RESPIRATORY: Lungs clear and equal. CARDIOVASCULAR: Regular rate and rhythm. GI/ABDOMEN: Soft and mild diffuse abdominal tenderness. No organomegaly or pulsatile mass. No rebound or guarding. Hyperactive bowel sounds. EXTREMITIES: Warm and well perfused. BACK: No CVA tenderness. NEUROLOGICAL: Intact without focal deficits. PSYCHIATRIC: normal affect. MUSCULOSKELETAL: Normally developed with good muscle tone. Medical Decision & Procedures ER Provider Diagnostic Interpretation: Radiology results as stated below per my review and radiologist interpretation: ABDOMEN 2VIEW W/PA CHEST RTN CLINICAL HISTORY: ABDOMINAL PAIN/GI pain COMPARISON STUDY: 10/07/2016. FINDINGS: mild chronic interstitial change throughout both hemithoraces. Small parenchymal infiltrate versus potential nodular pathology medial aspect left base. This measures 2.7 cm maximum dimension. Generalized small bowel ileus versus distal partial small bowel obstructive change. Moderate fecal material throughout the colon. Degenerative changes of the osseous structures throughout. IMPRESSION: 1. Chronic pulmonary interstitial change with a potential superimposed focal infiltrate versus nodule left lung base. 2. CT of the chest is suggested as initial follow-up. 3. Ileus versus partial distal small bowel obstructive change. The above report was generated using voice recognition software. It may contain grammatical, syntax or spelling errors. Electronically signed by: Waylon Villalba M.D. 12/17/2017 12:18 PM Dictated Date/Time: 12/17/2017 12:15 PM Laboratory Results 12/17/17 11:52 Red Blood Count 4.38, Mean Corpuscular Volume 96.3, Mean Corpuscular Hemoglobin 31.7, Mean Corpuscular Hemoglobin Concent 32.9, Mean Platelet Volume 9.9, Neutrophils (%) (Auto) 86.5, Lymphocytes (%) (Auto) 6.1, Monocytes (%) (Auto) 7.1, Eosinophils (%) (Auto) 0.1, Basophils (%) (Auto) 0.1, Neutrophils # (Auto) 7.46, Lymphocytes # (Auto) 0.53, Monocytes # (Auto) 0.61, Eosinophils # (Auto) 0.01, Basophils # (Auto) 0.01 12/17/17 11:52 Test 12/17/17 11:52 White Blood Count 8.63 K/uL (4.8-10.8) Red Blood Count 4.38 M/uL (4.2-5.4) Hemoglobin 13.9 g/dL (12.0-16.0) Hematocrit 42.2 % (37-47) Mean Corpuscular Volume 96.3 fL (80-100) Mean Corpuscular Hemoglobin 31.7 pg (25-34) Mean Corpuscular Hemoglobin Concent 32.9 g/dl (32-36) Platelet Count 151 K/uL (130-400) Mean Platelet Volume 9.9 fL (7.4-10.4) Neutrophils (%) (Auto) 86.5 % Lymphocytes (%) (Auto) 6.1 % Monocytes (%) (Auto) 7.1 % Eosinophils (%) (Auto) 0.1 % Basophils (%) (Auto) 0.1 % Neutrophils # (Auto) 7.46 K/uL (1.4-6.5) Lymphocytes # (Auto) 0.53 K/uL (1.2-3.4) Monocytes # (Auto) 0.61 K/uL (0.11-0.59) Eosinophils # (Auto) 0.01 K/uL (0-0.5) Basophils # (Auto) 0.01 K/uL (0-0.2) RDW Standard Deviation 46.2 fL (36.4-46.3) RDW Coefficient of Variation 13.2 % (11.5-14.5) Immature Granulocyte % (Auto) 0.1 % Immature Granulocyte # (Auto) 0.01 K/uL (0.00-0.02) Prothrombin Time 10.1 SECONDS (9.0-12.0) Prothromb Time International Ratio 1.0 (0.9-1.1) Activated Partial Thromboplast Time 24.5 SECONDS (21.0-31.0) Partial Thromboplastin Ratio 0.9 Anion Gap 5.0 mmol/L (3-11) Est Creatinine Clear Calc Drug Dose 56.7 ml/min Estimated GFR () 92.1 Estimated GFR (Non- 79.4 BUN/Creatinine Ratio 27.0 (10-20) Calcium Level 9.1 mg/dl (8.5-10.1) Total Bilirubin 0.5 mg/dl (0.2-1) Direct Bilirubin 0.1 mg/dl (0-0.2) Aspartate Amino Transf (AST/SGOT) 21 U/L (15-37) Alanine Aminotransferase (ALT/SGPT) 21 U/L (12-78) Alkaline Phosphatase 85 U/L (45-117) Total Protein 7.3 gm/dl (6.4-8.2) Albumin 3.7 gm/dl (3.4-5.0) Lipase 169 U/L (73-393) Laboratory results as stated above per my review. Medications Administered Medications (Trade) Dose Ordered Sig/Yeny Route Start Time Stop Time Status Last Admin Dose Admin Sodium Chloride 1,000 ml @ 999 mls/hr Q1H1M STAT IV 12/17/17 11:40 12/17/17 12:40 DC 12/17/17 11:51 999 MLS/HR Ondansetron HCl (Zofran Inj) 4 mg NOW STAT IV 12/17/17 11:40 12/17/17 11:43 DC 12/17/17 11:51 4 MG Ketorolac Tromethamine (Toradol Inj) 30 mg NOW STAT IV 12/17/17 11:40 12/17/17 11:43 DC 12/17/17 11:52 30 MG Morphine Sulfate (MoRPHine SULFATE INJ) 4 mg Q1H PRN IV 12/17/17 11:45 12/31/17 11:44 12/17/17 11:52 4 MG ED Course 1121: Previous medical records were reviewed. The patient was evaluated in room A4B. A complete history and physical examination was performed. 1140: Toradol 30 mg IV, Zofran 4 mg IV, NSS 1000 ml @ 999 mls/hr IV 1145: Morphine sulfate 4 mg IV - PRN 1323: I reassessed the patient at this time. She is feeling better and resting comfortably. I discussed the results and treatment plan with the patient. I answered all pertaining questions that she had. She expressed understanding and verbalized agreement. The patient will be discharged home. Medical Decision Differential considered: pancreatitis, hepatitis, or acute cholecystitis, AAA, UTI, pyelonephritis, kidney stones, appendicitis, diverticulitis, shingles, bowel obstruction mesenteric ischemia, intussusception, hernia. This is a 77-year-old female who presents to the ED after being seen yesterday. The patient continues to have symptoms. She was seen yesterday and had a CT scan of her abdomen and pelvis as well as blood work. This has been reviewed. The patient was discharged with abdominal pain. She states that her symptoms started after eating some soup at a restaurant. She states that her pain is persisted. She has not developed diarrhea or had a bowel movement since yesterday. The patient denies any nausea but does report some nausea. She was discharged with Zofran home pack last night. Her physical exam reveals some mild diffuse abdominal tenderness. She has hyperactive bowel sounds. Blood pressure was slightly elevated. Her CBC is normal and a complete metabolic panel was unremarkable. Lipase was normal. Abdominal series reveals a focal nodule in the left base versus an infiltrate. She has no pulmonary symptoms. Ileus versus partial small bowel obstruction. The patient was offered admission versus discharge. She declined admission and was discharged on Percocet and Zofran. She was treated with pain medication here through the IV as well as IV fluids. The patient was advised to come back for symptoms persist beyond 48 hours or if they worsen in the next 24-48 hours. She was also advised to follow-up with the family doctor. Medication Reconcilliation Current Medication List: was personally reviewed by me Blood Pressure Screening Patient's blood pressure: Elevated blood pressure Blood pressure disposition: Referred to PCP Impression Primary Impression: Abdominal pain Scribe Attestation The scribe's documentation has been prepared under my direction and personally reviewed by me in its entirety. I confirm that the note above accurately reflects all work, treatment, procedures, and medical decision making performed by me. Departure Information Dispostion Home / Self-Care Prescriptions Ondasetron Odt (ZOFRAN ODT) 4 Mg Tab 4 MG SL Q6H for Nausea, #20 TAB Prov: Jass Sanderson D.O. 12/17/17 Oxycodone/Acetaminophen 5MG/325MG (PERCOCET 5MG/325MG) Tab 1 TAB PO Q6H Y for Pain, #20 TAB Prov: Jass Sanderson D.O. 12/17/17 Referrals RV. Farley MD (PCP) Patient Instructions My [facility] Additional Instructions Percocet as prescribed. No driving within 6 hours of use. Do not take additional Tylenol while taking Percocet. Zofran: Allow one tablet to dissolve under the tongue every 6 hours as needed for nausea or vomiting. Follow-up with your doctor for further care and evaluation in 1-2 days. Return to the emergency department for worsening or new symptoms or any concerns. You have been examined and treated today on an emergency basis only. This is not a substitute for, or an effort to provide, complete comprehensive medical care. It is impossible to recognize and treat all injuries or illnesses in a single emergency department visit. It is therefore important that you follow up closely with your doctor. Call as soon as possible for an appointment. Return to the emergency department for recheck if you get worse, develop fevers , vomiting, increasing pain or if symptoms persist beyond 48 hours.
[2017-12-17 13:37] VITALS: BP 161/82; PULSE 72; O2SAT 95
[2017-12-17] MEDS ORDERED: OXYCODONE/ACETAMINOPHEN 5-325 TAB PO ONE (13:45)
== END 2017-12-17 13:55 | disposition home or self-care (01) ==
LOC: C.EDB 10:46 → C.EDA 13:55
DX: R10.9 Unspecified abdominal pain (principal); J45.909 Unspecified asthma, uncomplicated; I10 Essential (primary) hypertension; I25.10 Atherosclerotic heart disease of native coronary artery without angina pectoris; E66.9 Obesity, unspecified; G47.33 Obstructive sleep apnea (adult) (pediatric); Z83.3 Family history of diabetes mellitus; Z80.9 Family history of malignant neoplasm, unspecified; Z83.79 Family history of other diseases of the digestive system; Z82.49 Family history of ischemic heart disease and other diseases of the circulatory system; Z79.82 Long term (current) use of aspirin; Z79.899 Other long term (current) drug therapy; Z88.0 Allergy status to penicillin; Z88.2 Allergy status to sulfonamides; Z88.8 Allergy status to other drugs, medicaments and biological substances; Z91.048 Other nonmedicinal substance allergy status

== ENCOUNTER 2017-12-18 12:08 | Inpatient (IN) | payer BC, OTHER ==
[~2017-12-18] VITALS: Ht 167.6 cm; Wt 62.6 kg
[~2017-12-18 12:08] MED LIST changes: +ONDA4TAB10 SL; +ONDA4TAB46 PO; +OXYC-57 PO
[2017-12-18] MEDS ORDERED: SODIUM CHLORIDE 0.9% 1000ML 1,000 ML IV STA (12:23)
[2017-12-18 12:56] LABS: BASO % 0.1 %; BASO ABS # 0.01 K/uL (0-0.2); EOS % 0.1 %; EOS ABS # 0.01 K/uL (0-0.5); HEMATOCRIT 45.1 % (37-47); HEMOGLOBIN 15.5 g/dL (12.0-16.0); IG# 0.02 K/uL (0.00-0.02); LYMPH % 4.1 %; LYMPH ABS # 0.46 K/uL (1.2-3.4); MEAN CELL VOLUME 95.3 fL (80-100); MEAN CORPUSCULAR HEMOGLOBIN 32.8 pg (25-34); MEAN CORPUSCULAR HGB CONC 34.4 g/dl (32-36); MEAN PLATELET VOLUME 9.7 fL (7.4-10.4); MONO % 8.5 %; MONO ABS # 0.95 K/uL (0.11-0.59); NEUT ABS # 9.73 K/uL (1.4-6.5); PLATELET COUNT 179 K/uL (130-400); RED CELL DISTRIBUTION WIDTH CV 13.3 % (11.5-14.5); RED CELL DISTRIBUTION WIDTH SD 46.4 fL (36.4-46.3); WHITE BLOOD COUNT 11.18 K/uL (4.8-10.8)
--- NOTE | 2017-12-18 12:57 | EMERGENCY ROOM VISIT NOTE ---
History Report prepared by Tana: Napoleon Garcia Under the Supervision of: Dr. Harry Rodriguez M.D. First contact with patient: 12:21 Chief Complaint: GI ASSESSMENT Stated Complaint: POISONED OR SPOILED SOUP Nursing Triage Summary: Pt states third visit in three days. Pt states she is being admitted to the hospital, sent by PCP. Vomiting all night. Denies diarrhea. Diffuse abd pain and bloating. Pt states she ate spoiled soup. History of Present Illness The patient is a 77 year old female who presents to the Emergency Room with complaints of persistent abdominal pain for the past couple of days. The patient states that she has also been vomiting, and she has been unable to have a bowel movement. She denies an blood in her stools. She states that she has been here the past two days, and she has had a CT scan and X-ray, and everything was normal other than constipation. The patient states that all of this started after having seafood soup. Source of History: patient Onset: the past couple of days Position: abdomen Timing: other (persistent) Associated Symptoms: + vomiting Review of Systems See HPI for pertinent positives and negatives. A total of ten systems were reviewed and were otherwise negative. Past Medical & Surgical Medical Problems: (1) Aortic dissection (2) Asthma (3) Benign hypertension (4) Coronary artery disease (5) Enteritis (6) Intractable nausea and vomiting (7) Obesity (8) Obstructive sleep apnea syndrome Surgical Problems: (1) Hx of tonsillectomy (2) S/P cholecystectomy Family History Diabetes mellitus FHx: cancer FHx: gallbladder disease FHx: heart disease Hypertension Social History Smoking Status: Never Smoker Alcohol Use: occasionally Marital Status: Housing Status: lives with significant other Occupation Status: retired Current/Historical Medications Scheduled Aspirin (Aspirin Ec), 81 MG PO DAILY Atenolol (Tenormin), 12.5 MG PO DAILY Cholecalciferol (Vitamin D), 2,000 UNITS PO DAILY Dicyclomine HCl (Dicyclomine HCl), 20 MG PO BID Doxylamine Succinate (Sleep) (Ra Sleep Aid), 25 MG PO HS Loratadine (Claritin), 10 MG PO DAILY Naproxen Sodium (Aleve), 220 MG PO BID Nitroglycerin (Nitrostat), 0.3 MG UT PRN Omeprazole (Prilosec), 20 MG PO DAILY Ondasetron Odt (Zofran Odt), 4 MG SL Q6H Potassium Chloride (Micro-K Ext Rel), 10 MEQ PO UD Simvastatin (Zocor), 20 MG PO QPM Verapamil Hcl (Calan Sr Ext Rel), 180 MG PO DAILY Scheduled PRN Ondansetron Hcl (Zofran), 4 MG PO Q6 PRN for Nausea Oxycodone/Acetaminophen 5MG/325MG (Percocet 5MG/325MG), 1 TAB PO Q6H PRN for Pain Allergies Coded Allergies: Iodine (Verified Allergy, Intermediate, RASH TO TOPICAL IODINE, 12/16/17) Adhesives (Verified Allergy, Unknown, RED SKIN, 12/16/17) Penicillins (Verified Allergy, Unknown, 12/16/17) Sulfa Drugs (Verified Allergy, Unknown, 12/16/17) Chlorhexidine (Verified Adverse Reaction, Intermediate, SEVERE BURNING WITH CHG WIPES, 12/16/17) Physical Exam Vital Signs Date Time Temp Pulse Resp B/P (MAP) Pulse Ox O2 Delivery O2 Flow Rate FiO2 12/18/17 14:18 84 16 142/92 94 Room Air 12/18/17 12:13 36.9 107 16 144/73 95 Room Air Physical Exam Physical Exam GENERAL: She is oriented to person, place, and time. She appears well- developed and well-nourished. She does not appear distressed. ____ HENT: Exam performed. Head: Normocephalic and atraumatic. Right Ear: External ear normal. No mastoid tenderness. Left Ear: External ear normal. No mastoid tenderness. Mouth/Throat: The oropharynx is clear and moist. No trismus in the jaw. No dental abscesses or uvula swelling. No oropharyngeal exudate or tonsillar abscesses. ____ EYES: Conjunctivae and EOM are normal. Pupils are equal, round, and reactive to light. Right eye exhibits no discharge. Left eye exhibits no discharge. No scleral icterus. ____ NECK: Normal range of motion. Neck supple. No JVD present. No spinous process tenderness present. No carotid bruit present. No rigidity. No tracheal deviation and normal range of motion present. No Brudzinski's sign and no Kernig 's sign noted. ____ CV: Normal rate, regular rhythm, normal heart sounds and intact distal pulses. There is no peripheral edema. Palpable radial pulses bue. ____ PULM/CHEST: Effort normal and breath sounds normal. No respiratory distress. No stridor. She has no wheezes. She has no rales. Chest Wall: She exhibits no tenderness. ____ ABD: The abdomen is soft. Bowel sounds are normal. She has no distension. No mass is present. There is no tenderness. There is no rebound, no guarding, no Dumont's sign and no tenderness at McBurney's point. Rovsig negative MUSC/SKEL: Normal range of motion. There is no peripheral edema, tenderness or deformity. LYMPH: No cervical adenopathy. ____ NEURO: She is alert and oriented to person, place, and time. She has normal strength. No cranial nerve deficit or sensory deficit. Coordination and gait normal. GCS eye subscore is 4. GCS verbal subscore is 5. GCS motor subscore is 6. Cerebellar tests wnl. ____ SKIN: Skin is warm and dry. She is not diaphoretic. ____ PSYCH: She has a normal mood and affect. Her behavior is normal. Judgment and thought content normal. ____ Medical Decision & Procedures Laboratory Results 12/18/17 12:47 Red Blood Count 4.73, Mean Corpuscular Volume 95.3, Mean Corpuscular Hemoglobin 32.8, Mean Corpuscular Hemoglobin Concent 34.4, Mean Platelet Volume 9.7, Neutrophils (%) (Auto) 87.0, Lymphocytes (%) (Auto) 4.1, Monocytes (%) (Auto) 8.5, Eosinophils (%) (Auto) 0.1, Basophils (%) (Auto) 0.1, Neutrophils # (Auto) 9.73, Lymphocytes # (Auto) 0.46, Monocytes # (Auto) 0.95, Eosinophils # (Auto) 0.01, Basophils # (Auto) 0.01 12/18/17 12:47 Test 12/18/17 12:47 White Blood Count 11.18 K/uL (4.8-10.8) Red Blood Count 4.73 M/uL (4.2-5.4) Hemoglobin 15.5 g/dL (12.0-16.0) Hematocrit 45.1 % (37-47) Mean Corpuscular Volume 95.3 fL (80-100) Mean Corpuscular Hemoglobin 32.8 pg (25-34) Mean Corpuscular Hemoglobin Concent 34.4 g/dl (32-36) Platelet Count 179 K/uL (130-400) Mean Platelet Volume 9.7 fL (7.4-10.4) Neutrophils (%) (Auto) 87.0 % Lymphocytes (%) (Auto) 4.1 % Monocytes (%) (Auto) 8.5 % Eosinophils (%) (Auto) 0.1 % Basophils (%) (Auto) 0.1 % Neutrophils # (Auto) 9.73 K/uL (1.4-6.5) Lymphocytes # (Auto) 0.46 K/uL (1.2-3.4) Monocytes # (Auto) 0.95 K/uL (0.11-0.59) Eosinophils # (Auto) 0.01 K/uL (0-0.5) Basophils # (Auto) 0.01 K/uL (0-0.2) RDW Standard Deviation 46.4 fL (36.4-46.3) RDW Coefficient of Variation 13.3 % (11.5-14.5) Immature Granulocyte % (Auto) 0.2 % Immature Granulocyte # (Auto) 0.02 K/uL (0.00-0.02) Anion Gap 7.0 mmol/L (3-11) Est Creatinine Clear Calc Drug Dose 48.4 ml/min Estimated GFR () 70.5 Estimated GFR (Non- 60.9 BUN/Creatinine Ratio 29.7 (10-20) Calcium Level 9.8 mg/dl (8.5-10.1) Total Bilirubin 0.8 mg/dl (0.2-1) Aspartate Amino Transf (AST/SGOT) 36 U/L (15-37) Alanine Aminotransferase (ALT/SGPT) 33 U/L (12-78) Alkaline Phosphatase 88 U/L (45-117) Total Protein 7.8 gm/dl (6.4-8.2) Albumin 3.8 gm/dl (3.4-5.0) Globulin 4.0 gm/dl (2.5-4.0) Albumin/Globulin Ratio 1.0 (0.9-2) Lipase 187 U/L (73-393) Laboratory results reviewed by me Medications Administered Medications (Trade) Dose Ordered Sig/Yeny Route Start Time Stop Time Status Last Admin Dose Admin Sodium Chloride 1,000 ml @ 125 mls/hr Q8H STAT IV 12/18/17 12:23 12/18/17 17:02 DC 12/18/17 13:24 125 MLS/HR Ondansetron HCl (Zofran Inj) 4 mg NOW STAT IV 12/18/17 13:49 12/18/17 13:51 DC 12/18/17 14:23 4 MG ED Course 1221: The patient was evaluated in room B6. A complete history and physical exam was performed. EMR reviewed. Patient was seen in the emergency department on December 17 and December 16, 2017. She had a negative CAT scan and negative acute abdominal series x-ray as well as negative labs during those 2 visits. 1223: Sodium Chloride 1000 ml @ 125 mls/hr IV 1349: Zofran 4mg IV 1402: Vital signs stable. Labs within normal limits. Repeat abdominal exam within normal limits. I discussed the patient's case with Dr. Clayton the patient's PCP, and she states that she prefers for the patient to be evaluated by a hospitalist since this is the third time she has been here in three days, and she states that there is some possibility of prerenal GABRIELLA. 1429: Discussed the patient's case with Dr. Danny TOVAR Hospitalist. The patient will be evaluated for further treatment and disposition. Medical Decision Patient was seen in the emergency department on December 17 and December 16, 2017. She had a negative CAT scan and negative acute abdominal series x-ray as well as negative labs during those 2 visits. Vital signs stable. Labs within normal limits. Repeat abdominal exam within normal limits. I discussed the patient's case with Dr. Clayton the patient's PCP, and she states that she prefers for the patient to be evaluated by a hospitalist since this is the third time she has been here in three days, and she states that there is some possibility of prerenal GABRIELLA. Medication Reconcilliation Current Medication List: was personally reviewed by me Blood Pressure Screening Patient's blood pressure: Elevated blood pressure Monitored by the hospitalist. Consults Time Called: 1614 Consulting Physician: Dr. Clayton Returned Call: [phone] I discussed the patient's case with Dr. Clayton, and she states that she prefers for the patient to be evaluated by a hospitalist since this is the third time she has been here in three days, and she states that there is some possibility of type 1 prerenal GABRIELLA. Impression Primary Impression: Nausea and vomiting Additional Impression: Prerenal renal failure Scribe Attestation The scribe's documentation has been prepared under my direction and personally reviewed by me in its entirety. I confirm that the note above accurately reflects all work, treatment, procedures, and medical decision making performed by me. The chart was completed utilizing [employer] Speech voice recognition software. Grammatical errors, random word insertions, pronoun errors, and incomplete sentences are an occasional consequence of this system due to software limitations, ambient noise, and hardware issues. Any formal questions or concerns about the content, text, or information contained within the body of this dictation should be directly addressed to the physician for clarification. Departure Information Dispostion Being Evaluated By Hospitalist Referrals RV. Farley MD (PCP) Patient Instructions My [facility] Problem Qualifiers Primary Impression: Nausea and vomiting Vomiting type: unspecified Vomiting Intractability: intractable Qualified Codes: R11.2 - Nausea with vomiting, unspecified
[2017-12-18 13:16] LABS: ALBUMIN 3.8 gm/dl (3.4-5.0); CALCIUM 9.8 mg/dl (8.5-10.1); CREATININE 0.91 mg/dl (0.60-1.20); POTASSIUM 3.5 mmol/L (3.5-5.1)
[2017-12-18 13:18] LABS: TOTAL PROTEIN 7.8 gm/dl (6.4-8.2)
[2017-12-18] MEDS: ONDANSETRON INJ 2 MG/ML 2 ML VIAL IV STA ×2 (13:49→14:23)
[2017-12-18] MEDS ORDERED: OXYCODONE/ACETAMINOPHEN 5-325 TAB PO PRN (14:45)
[2017-12-18] MEDS ORDERED: MAGNESIUM HYDROXIDE SUSP 30 ML UDC PO PRN (14:45)
[2017-12-18] MEDS ORDERED: ACETAMINOPHEN 325 MG TAB PO PRN (14:45)
[2017-12-18] MEDS ORDERED: NITROGLYCERIN 0.3 MG/1 TAB 100 TAB BTL UT PRN (14:45)
[2017-12-18] MEDS ORDERED: ALUMINUM/MAGNESIUM/SIMETH (MAALOX MAX) 30 ML UDC PO PRN (14:45)
[2017-12-18] MEDS ORDERED: POLYETHYLENE (MIRALAX) 17 GM PACK PO PRN (14:45)
[2017-12-18] MEDS ORDERED: IV FLUIDS COMPLETED PRN (15:00)
--- NOTE | 2017-12-18 15:13 | History and Physical ---
History & Physical Date & Time of Service: Dec 18, 2017 at 14:53 Chief Complaint: Poisoned Or Spoiled Soup Primary Care Physician: RV. Farley MD History of Present Illness Source: patient 77 y/o F Hx HTN, HPL, CAD, breast CA. Pt presents to the hospital for the 3rd time in as many days c/o nausea, vomiting and abdominal pain. She enjoyed bowl of fish soup at a local restaurant on Fri and her symptoms began shortly after. She was twice treated and released in the ER. She denies fevers, CP, SOB or dysuria. She has not had diarrhea. She has been unable to keep down solids and fluids including any prescribed meds. Past Medical/Surgical History 1) CAD - distant SC 2) HTN 3) Breast CA 4) Mild dementia 5) HPL Surgical 1) R TKA 2) Mastectomy 3) Cholecystectomy 4) Oopherectomy Family History Diabetes mellitus FHx: cancer FHx: gallbladder disease FHx: heart disease Hypertension Social History Smoking Status: Never Smoker Marital Status: Occupational Status: retired Immunizations History of Influenza Vaccine: Yes Influenza Vaccine Date: Jul 14, 2011 History of Tetanus Vaccine?: Yes Tetanus Immunization Date: Jul 11, 2005 History of Pneumococcal: Yes Pneumococcal Date: Jul 11, 2006 History of Hepatitis B Vaccine: Yes Hepatitis Immunization Date: Jul 11, 2010 Allergies Coded Allergies: Iodine (Verified Allergy, Intermediate, RASH TO TOPICAL IODINE, 12/16/17) Adhesives (Verified Allergy, Unknown, RED SKIN, 12/16/17) Penicillins (Verified Allergy, Unknown, 12/16/17) Sulfa Drugs (Verified Allergy, Unknown, 12/16/17) Chlorhexidine (Verified Adverse Reaction, Intermediate, SEVERE BURNING WITH CHG WIPES, 12/16/17) Home Medications Scheduled Aspirin (Aspirin Ec), 81 MG PO DAILY Atenolol (Tenormin), 12.5 MG PO DAILY Cholecalciferol (Vitamin D), 2,000 UNITS PO DAILY Dicyclomine HCl (Dicyclomine HCl), 20 MG PO BID Doxylamine Succinate (Sleep) (Ra Sleep Aid), 25 MG PO HS Loratadine (Claritin), 10 MG PO DAILY Naproxen Sodium (Aleve), 220 MG PO BID Nitroglycerin (Nitrostat), 0.3 MG UT PRN Omeprazole (Prilosec), 20 MG PO DAILY Ondasetron Odt (Zofran Odt), 4 MG SL Q6H Potassium Chloride (Micro-K Ext Rel), 10 MEQ PO UD Simvastatin (Zocor), 20 MG PO QPM Verapamil Hcl (Calan Sr Ext Rel), 180 MG PO DAILY Scheduled PRN Ondansetron Hcl (Zofran), 4 MG PO Q6 PRN for Nausea Oxycodone/Acetaminophen 5MG/325MG (Percocet 5MG/325MG), 1 TAB PO Q6H PRN for Pain Review of Systems Constitutional: No fever, No chills, No sweats Eyes: No worsening of vision ENT: No hearing loss, No unusual epistaxis, No nasal symptoms Respiratory: No cough, No sputum, No wheezing Cardiovascular: No chest pain, No orthopnea, No PND Abdomen: + pain, + nausea, + vomiting, No diarrhea, No constipation Musculoskeletal: No joint pain Genitourinary - Female: No dysuria, No urinary frequency, No urinary urgency Neurologic: + memory loss (chronic), No paralysis, No weakness Psychiatric: No depression symptoms Endocrine: No fatigue Hematologic / Lymphatic: No abnormal bleeding/bruising Integumentary: No rash Allergic / Immunologic: No environmental allergies Physical Exam Vital Signs Date Time Temp Pulse Resp B/P (MAP) Pulse Ox O2 Delivery O2 Flow Rate FiO2 12/18/17 14:18 84 16 142/92 94 Room Air 12/18/17 12:13 36.9 107 16 144/73 95 Room Air General Appearance: WD/WN, no apparent distress Head: normocephalic Eyes: normal inspection ENT: normal ENT inspection, pharynx normal Neck: supple, thyroid normal Respiratory/Chest: chest non-tender, lungs clear, normal breath sounds Cardiovascular: regular rate, rhythm, no edema, no gallop Abdomen/GI: + pertinent finding (Mild diffuse tenderness in lower abdomen) Back: normal inspection, no CVA tenderness Extremities/Musculoskelatal: normal inspection, no calf tenderness, normal capillary refill 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, no motor/sensory deficits, alert, oriented x 3 Skin: normal color Diagnostics Laboratory Results Results Past 24 Hours Test 12/18/17 12:47 12/18/17 14:33 Range/Units White Blood Count 11.18 4.8-10.8 K/uL Red Blood Count 4.73 4.2-5.4 M/uL Hemoglobin 15.5 12.0-16.0 g/dL Hematocrit 45.1 37-47 % Mean Corpuscular Volume 95.3 80-100 fL Mean Corpuscular Hemoglobin 32.8 25-34 pg Mean Corpuscular Hemoglobin Concent 34.4 32-36 g/dl Platelet Count 179 130-400 K/uL Mean Platelet Volume 9.7 7.4-10.4 fL Neutrophils (%) (Auto) 87.0 % Lymphocytes (%) (Auto) 4.1 % Monocytes (%) (Auto) 8.5 % Eosinophils (%) (Auto) 0.1 % Basophils (%) (Auto) 0.1 % Neutrophils # (Auto) 9.73 1.4-6.5 K/uL Lymphocytes # (Auto) 0.46 1.2-3.4 K/uL Monocytes # (Auto) 0.95 0.11-0.59 K/uL Eosinophils # (Auto) 0.01 0-0.5 K/uL Basophils # (Auto) 0.01 0-0.2 K/uL RDW Standard Deviation 46.4 36.4-46.3 fL RDW Coefficient of Variation 13.3 11.5-14.5 % Immature Granulocyte % (Auto) 0.2 % Immature Granulocyte # (Auto) 0.02 0.00-0.02 K/uL Sodium Level 134 136-145 mmol/L Potassium Level 3.5 3.5-5.1 mmol/L Chloride Level 96 98-107 mmol/L Carbon Dioxide Level 31 21-32 mmol/L Anion Gap 7.0 3-11 mmol/L Blood Urea Nitrogen 27 7-18 mg/dl Creatinine 0.91 0.60-1.20 mg/dl Est Creatinine Clear Calc Drug Dose 48.4 ml/min Estimated GFR () 70.5 Estimated GFR (Non- 60.9 BUN/Creatinine Ratio 29.7 10-20 Random Glucose 136 70-99 mg/dl Calcium Level 9.8 8.5-10.1 mg/dl Total Bilirubin 0.8 0.2-1 mg/dl Aspartate Amino Transf (AST/SGOT) 36 15-37 U/L Alanine Aminotransferase (ALT/SGPT) 33 12-78 U/L Alkaline Phosphatase 88 45-117 U/L Total Protein 7.8 6.4-8.2 gm/dl Albumin 3.8 3.4-5.0 gm/dl Globulin 4.0 2.5-4.0 gm/dl Albumin/Globulin Ratio 1.0 0.9-2 Lipase 187 73-393 U/L Diagnostic Radiology CT abdomen: 1. No acute intra-abdominal pathology. 2. Fluid noted throughout the small bowel without evidence of bowel obstruction or bowel wall thickening. This could relate to the presence of a mild enteritis or celiac disease among other potential etiologies. 3. Diverticulosis. Impression Assessment and Plan 77 y/o F Hx HTN, HPL, CAD, breast CA. Pt presents to the hospital for the 3rd time in as many days c/o nausea, vomiting and abdominal pain. She enjoyed bowl of fish soup at a local restaurant on Fri and her symptoms began shortly after. She was twice treated and released in the ER. She denies fevers, CP, SOB or dysuria. She has not had diarrhea. She has been unable to keep down solids and fluids including any prescribed meds. 1) Intractable nausea and vomiting, abdominal pain - pt placed on antiemetics and IVF. Narcotics provided for pain control. Her intial CT 2 12/16 was unimpressive, however, her symptoms have not resolved so that repeat imaging and a GI consult should be considered if she does not improve in the short-term. 2) HTN - cont Atenolol, Verapamil as possible - IV substitutions can be made if she is unable to tolerate PO meds. 3) CAD - will cont ASA, Statin and a B nehal if she is tolerating PO. No evidence of ACS at present. 4) HPL - cont Statin when tolerating PO Full code - Heparin prophylaxis Total time for this admit including review of labs, meds imaging - discussion with pt and ER attending - 34 min Resuscitation Status VTE Prophylaxis Will order VTE Prophylaxis: Yes
[2017-12-18 16:44] VITALS: BP 137/91; PULSE 89; TEMP 37.1; O2SAT 93
[2017-12-18] MEDS: NSS + 20MEQ KCL 1000ML 1,000 ML IV SCH (17:48)
[2017-12-18 17:57] VITALS: BP 137/91; PULSE 89; TEMP 37.1; O2SAT 93; Ht 167.6 cm; Wt 62.6 kg
[2017-12-18] MEDS: ONDANSETRON INJ 2 MG/ML 2 ML VIAL IV PRN (19:56)
[2017-12-18] MEDS: SIMVASTATIN 20 MG TAB PO SCH (21:00)
[2017-12-18] MEDS: HEPARIN SOD 5000 UNIT/0.5 ML CARP SQ SCH (22:07)
--- NOTE | 2017-12-18 23:20 | DIAGNOSTIC IMAGING REPORT ---
ABDOMEN 2VIEW W/PA CHEST RTN HISTORY: 77 years-old Female emesis with fecal odor acute emesis COMPARISON: Acute abdominal series radiographs 12/17/2017 TECHNIQUE: PA view of the chest with erect and supine views of the abdomen FINDINGS: Cardiac silhouette is within normal limits in size. Atherosclerosis and tortuosity of the thoracic aorta. Previously questioned nodular opacity of the left lung base is not identified on today's study. There is no pneumothorax, pleural effusion, focal airspace consolidation or overt pulmonary edema. Eventration of the right hemidiaphragm. Surgical clips project over the right axilla. Degenerative changes are seen within the shoulders and spine. No pneumoperitoneum on the upright projection. Moderate volume of formed stool is noted throughout the colon. There are several dilated air-filled loops of small bowel within the central abdomen measuring up to 3.5 cm transversely, progressed from comparison. No pneumatosis identified. No definite urolith. Multilevel advanced degenerative changes of the spine and pelvis. IMPRESSION: 1. Multiple dilated air-filled loops of small bowel within the central abdomen have progressed from prior study suggesting small bowel obstruction or less likely ileus. No pneumatosis identified. Follow-up recommended. 2. Moderate colonic stool volume suggests constipation. 3. No acute process of the chest. The above report was generated using voice recognition software. It may contain grammatical, syntax or spelling errors. Electronically signed by: Patrice Torres M.D. 12/18/2017 11:19 PM Dictated Date/Time: 12/18/2017 11:15 PM
[2017-12-18 23:27] VITALS: BP 156/90; PULSE 94; TEMP 37.1; O2SAT 92
[2017-12-18] MEDS ORDERED: BISACODYL 10 MG SUPP PR STA (23:35)
[2017-12-18] MEDS: METOCLOPRAMIDE HCL INJ 5 MG/ML 2 ML VIAL IV. PRN (23:49)
[2017-12-19] MEDS: NSS + 20MEQ KCL 1000ML 1,000 ML IV SCH ×2 (01:02→08:04)
[2017-12-19 02:00] LABS: HEMATOCRIT 40.7 % (37-47)
[2017-12-19 02:10] LABS: CALCIUM 9.5 mg/dl (8.5-10.1); CREATININE 0.85 mg/dl (0.60-1.20); POTASSIUM 3.1 mmol/L (3.5-5.1)
[2017-12-19] MEDS: ONDANSETRON INJ 2 MG/ML 2 ML VIAL IV PRN (05:46)
[2017-12-19] MEDS ORDERED: NURSING VERBAL MED ORDER ONE ×3 (06:30→10:45)
[2017-12-19 07:01] VITALS: BP 122/76; PULSE 92; TEMP 36.9; O2SAT 92
[2017-12-19] MEDS ORDERED: POTASSIUM CHLORIDE 10 MEQ TABCR PO STA (07:52)
[2017-12-19] MEDS: METOCLOPRAMIDE HCL INJ 5 MG/ML 2 ML VIAL IV. PRN (08:02)
--- NOTE | 2017-12-19 08:39 | Hospitalist Progress Note ---
Hospitalist Progress Note Date of Service Dec 19, 2017. Subjective Pt evaluation today including: conversation w/ patient, conversation w/ family , physical exam, chart review, lab review, review of studies Pain: Abdominal pain PO Intake: poor Voiding: no voiding problems The patient was seen and examined this morning. Patient reports feeling poorly this morning. She is still having severe abdominal pain along with cramping and distention. Patient has vomited 2 times overnight large volumes. There is emesis in the bedside emesis bag, which is green and bile like. She continues to complain of increased nausea with dry heaves. Patient denies any fevers, chills or sweats. She denies any lightheadedness or dizziness. CT results were gone over with the patient including findings of small bowel obstruction along with severe constipation. Her is present at bedside and provides a surgical history: She has had 4 abdominal surgeries in the past including appendectomy 1961, open cholecystectomy 1973, hysterectomy 1971 and subsequent ovary removal after hysterectomy the same year. She has never had a small bowel obstruction prior to this. Additional Comments: Constitutional: No fever, sweats or chills Respiratory: No cough, sputum, dyspnea at rest or on exertion Cardiovascular: No chest pain, tightness or palpitations Abdomen: See HPI Musculoskeletal: No joint pain, calf pain, swelling Neurologic: No weakness, numbness/tingling, or balance problems Objective Vital Signs Date Time Temp Pulse Resp B/P (MAP) Pulse Ox O2 Delivery O2 Flow Rate FiO2 12/19/17 07:01 36.9 92 20 122/76 (91) 92 Room Air 12/19/17 00:01 Room Air 12/18/17 23:27 37.1 94 18 156/90 (112) 92 Room Air 12/18/17 17:57 37.1 89 18 137/91 93 Room Air 12/18/17 16:44 37.1 89 18 137/91 (106) 93 Room Air 12/18/17 15:43 91 16 155/93 92 12/18/17 14:18 84 16 142/92 94 Room Air 12/18/17 12:13 36.9 107 16 144/73 95 Room Air Physical Exam Notes: General: awake, alert, mild distress Head: Normocephalic, atraumatic ENT: PERRL, EOMI, no pharyngeal exudate, mucous membranes moist Chest: Clear to auscultation, on room air, no adventitious breath sounds Cardiac: Regular rate and rhythm, no murmur, no JVD, normal peripheral pulses, good capillary refill Abdominal: Absent bowel sounds throughout, soft, +tender to palpation in all quadrants. No guarding or rigidity. Extremities: Normal inspection, no peripheral edema or erythema, calfs nontender to palpation Psych: Normal mood and affect Neuro: AAO x 3, speech is clear, no peripheral sensory deficits Laboratory Results Last 24 Hours Test 12/18/17 12:47 12/18/17 15:08 12/19/17 01:35 White Blood Count 11.18 K/uL Red Blood Count 4.73 M/uL Hemoglobin 15.5 g/dL 14.0 g/dL Hematocrit 45.1 % 40.7 % Mean Corpuscular Volume 95.3 fL Mean Corpuscular Hemoglobin 32.8 pg Mean Corpuscular Hemoglobin Concent 34.4 g/dl Platelet Count 179 K/uL Mean Platelet Volume 9.7 fL Neutrophils (%) (Auto) 87.0 % Lymphocytes (%) (Auto) 4.1 % Monocytes (%) (Auto) 8.5 % Eosinophils (%) (Auto) 0.1 % Basophils (%) (Auto) 0.1 % Neutrophils # (Auto) 9.73 K/uL Lymphocytes # (Auto) 0.46 K/uL Monocytes # (Auto) 0.95 K/uL Eosinophils # (Auto) 0.01 K/uL Basophils # (Auto) 0.01 K/uL RDW Standard Deviation 46.4 fL RDW Coefficient of Variation 13.3 % Immature Granulocyte % (Auto) 0.2 % Immature Granulocyte # (Auto) 0.02 K/uL Sodium Level 134 mmol/L 136 mmol/L Potassium Level 3.5 mmol/L 3.1 mmol/L Chloride Level 96 mmol/L 91 mmol/L Carbon Dioxide Level 31 mmol/L 38 mmol/L Anion Gap 7.0 mmol/L 7.0 mmol/L Blood Urea Nitrogen 27 mg/dl 30 mg/dl Creatinine 0.91 mg/dl 0.85 mg/dl Est Creatinine Clear Calc Drug Dose 48.4 ml/min 51.9 ml/min Estimated GFR () 70.5 76.6 Estimated GFR (Non- 60.9 66.1 BUN/Creatinine Ratio 29.7 34.9 Random Glucose 136 mg/dl 143 mg/dl Calcium Level 9.8 mg/dl 9.5 mg/dl Total Bilirubin 0.8 mg/dl Aspartate Amino Transf (AST/SGOT) 36 U/L Alanine Aminotransferase (ALT/SGPT) 33 U/L Alkaline Phosphatase 88 U/L Total Protein 7.8 gm/dl Albumin 3.8 gm/dl Globulin 4.0 gm/dl Albumin/Globulin Ratio 1.0 Lipase 187 U/L Lactic Acid Level 1.4 mmol/L Magnesium Level 1.8 mg/dl Assessment and Plan 77 y/o F Hx HTN, HPL, CAD, breast CA. Pt presents to the hospital for the 3rd time in as many days c/o nausea, vomiting and abdominal pain. She enjoyed bowl of fish soup at a local restaurant on Fri and her symptoms began shortly after. She was twice treated and released in the ER. SBO Constipation - Cont antiemetics (Zofran, Reglan, added Phenergan) and IVF normal NSS + Kcl @ 125 Ml/hr - initially po narcotics given for pain control will change to IV morphine if needed for pain control. - General surgery consult placed today as patient has significant abdominal surgical history, possible adhesions - Dulcolax suppository was administered last night without relief, patient had one fleets enema with some production of bowel movement. She reports she has not had a bowel movement in the past 5-6 days. Will order another Dulcolax suppository bowel regimen.for Hypokalemia -K+ =3.1, replace via IV as patient unable to tolerate p.o. HTN - cont Atenolol, Verapamil as possible - IV substitutions can be made if she is unable to tolerate PO meds. - Blood pressure currently stable in the 120s systolically CAD - will cont ASA, Statin and a B nehal if she is tolerating PO. No evidence of ACS at present. HPL - cont Statin when tolerating PO DVT ppx: Heparin prophylaxis CODE STATUS: Full code Disposition: Patient from home, lives with her -likely discharge in ~2 days, pending general surgery consultation
--- NOTE | 2017-12-19 08:45 | Family Medicine Progress Note ---
Progress Note Date of Service Dec 19, 2017. Subjective Pt evaluation today including: conversation w/ patient, chart review, lab review, review of studies Found patient resting comfortably. Says she feels okay overall but still has abdominal discomfort all over. Threw up brownish material this morning. Says has only been taking fluids, though. Had a partially-formed non-melanotic BM this morning as well. Continues to deny any fevers, CP, SOB, or other acute concerns besides her abdomen. Constitutional: No fever, No chills Respiratory: No cough, No shortness of breath Cardiovascular: No chest pain, No edema Abdomen: + pain, + nausea, + vomiting, No diarrhea, No constipation Female : No dysuria Medications Current Inpatient Medications Medications (Trade) Dose Ordered Sig/Yeny Route Start Time Stop Time Status Last Admin Dose Admin Acetaminophen (Tylenol Tab) 650 mg Q4H PRN PO 12/18/17 14:45 01/17/18 14:44 Al Hydrox/Mg Hydrox/Simethicone (Maalox Max Susp) 15 ml Q4H PRN PO 12/18/17 14:45 01/17/18 14:44 12/18/17 22:10 15 ML Magnesium Hydroxide (Milk Of Magnesia Susp) 30 ml Q6H PRN PO 12/18/17 14:45 01/17/18 14:44 Polyethylene (Miralax Powder Packet) 17 gm DAILY PRN PO 12/18/17 14:45 01/17/18 14:44 Ondansetron HCl (Zofran Inj) 4 mg Q6H PRN IV 12/18/17 14:45 01/17/18 14:44 12/19/17 05:46 4 MG Heparin Sodium (Porcine) (Heparin Sq 5000 Unit/0.5ml) 5,000 unit Q12H SQ 12/18/17 21:00 01/17/18 20:59 12/18/17 22:07 5,000 UNIT Aspirin (Ecotrin Tab) 81 mg DAILY PO 12/19/17 09:00 01/18/18 08:59 Atenolol (Tenormin Tab) 12.5 mg DAILY PO 12/19/17 09:00 01/18/18 08:59 Loratadine (Claritin Tab) 10 mg DAILY PO 12/19/17 09:00 01/18/18 08:59 Nitroglycerin (Nitrostat Tab) 0.3 mg UD PRN UT 12/18/17 14:45 01/17/18 14:44 Oxycodone/ Acetaminophen (Percocet 5-325mg Tab) 1 tab Q6H PRN PO 12/18/17 14:45 01/01/18 14:44 Simvastatin (Zocor Tab) 20 mg QPM PO 12/18/17 21:00 01/17/18 20:59 Verapamil HCl (Calan-Sr Tab) 180 mg DAILY PO 12/19/17 09:00 01/18/18 08:59 Miscellaneous Information (Order Awaiting Action) 1 ea QS N/A 12/18/17 16:00 01/17/18 15:59 Pantoprazole Sodium (Protonix Tab) 40 mg DAILY PO 12/19/17 09:00 01/18/18 08:59 Potassium Chloride/Sodium Chloride 1,000 ml @ 125 mls/hr Q8H IV 12/18/17 17:30 12/19/17 17:29 12/19/17 08:04 125 MLS/HR Metoclopramide HCl (Reglan Inj) 5 mg Q8H PRN IV. 12/18/17 15:00 01/17/18 14:59 12/19/17 08:02 5 MG Miscellaneous (Iv Fluids Completed) 1 ea PRN PRN N/A 12/18/17 15:00 12/18/18 14:59 12/19/17 08:04 1 EA Potassium Chloride (Klor-Con M10) 10 meq DAILY@1200 PO 12/19/17 12:00 01/18/18 11:59 Objective Vital Signs Date Time Temp Pulse Resp B/P (MAP) Pulse Ox O2 Delivery O2 Flow Rate FiO2 12/19/17 07:01 36.9 92 20 122/76 (91) 92 Room Air 12/19/17 00:01 Room Air 12/18/17 23:27 37.1 94 18 156/90 (112) 92 Room Air 12/18/17 17:57 37.1 89 18 137/91 93 Room Air 12/18/17 16:44 37.1 89 18 137/91 (106) 93 Room Air 12/18/17 15:43 91 16 155/93 92 12/18/17 14:18 84 16 142/92 94 Room Air 12/18/17 12:13 36.9 107 16 144/73 95 Room Air Physical Exam Notes: General Appearance: Awake, alert & oriented, comfortable in general, NAD. CV: +S1S2 RRR, no murmur. No peripheral edema. Pulm: Clear to auscultation throughout. Abdomen: +BS, soft, non-distended. Positive ttp throughout, right > left. Extremities: No pedal edema or calf tenderness. Moving all extremities naturally and easily. Neuro: No gross neuro deficits. Lines: Laboratory Results 12/18/17 12:47 Red Blood Count 4.73, Mean Corpuscular Volume 95.3, Mean Corpuscular Hemoglobin 32.8, Mean Corpuscular Hemoglobin Concent 34.4, Mean Platelet Volume 9.7, Neutrophils (%) (Auto) 87.0, Lymphocytes (%) (Auto) 4.1, Monocytes (%) (Auto) 8.5, Eosinophils (%) (Auto) 0.1, Basophils (%) (Auto) 0.1, Neutrophils # (Auto) 9.73, Lymphocytes # (Auto) 0.46, Monocytes # (Auto) 0.95, Eosinophils # (Auto) 0.01, Basophils # (Auto) 0.01 12/19/17 01:35 12/19/17 01:35 Test 12/18/17 12:47 12/18/17 15:08 12/19/17 01:35 White Blood Count 11.18 K/uL (4.8-10.8) Red Blood Count 4.73 M/uL (4.2-5.4) Hemoglobin 15.5 g/dL (12.0-16.0) Hematocrit 45.1 % (37-47) Mean Corpuscular Volume 95.3 fL (80-100) Mean Corpuscular Hemoglobin 32.8 pg (25-34) Mean Corpuscular Hemoglobin Concent 34.4 g/dl (32-36) Platelet Count 179 K/uL (130-400) Mean Platelet Volume 9.7 fL (7.4-10.4) Neutrophils (%) (Auto) 87.0 % Lymphocytes (%) (Auto) 4.1 % Monocytes (%) (Auto) 8.5 % Eosinophils (%) (Auto) 0.1 % Basophils (%) (Auto) 0.1 % Neutrophils # (Auto) 9.73 K/uL (1.4-6.5) Lymphocytes # (Auto) 0.46 K/uL (1.2-3.4) Monocytes # (Auto) 0.95 K/uL (0.11-0.59) Eosinophils # (Auto) 0.01 K/uL (0-0.5) Basophils # (Auto) 0.01 K/uL (0-0.2) RDW Standard Deviation 46.4 fL (36.4-46.3) RDW Coefficient of Variation 13.3 % (11.5-14.5) Immature Granulocyte % (Auto) 0.2 % Immature Granulocyte # (Auto) 0.02 K/uL (0.00-0.02) Total Bilirubin 0.8 mg/dl (0.2-1) Aspartate Amino Transf (AST/SGOT) 36 U/L (15-37) Alanine Aminotransferase (ALT/SGPT) 33 U/L (12-78) Alkaline Phosphatase 88 U/L (45-117) Total Protein 7.8 gm/dl (6.4-8.2) Albumin 3.8 gm/dl (3.4-5.0) Globulin 4.0 gm/dl (2.5-4.0) Albumin/Globulin Ratio 1.0 (0.9-2) Lipase 187 U/L (73-393) Lactic Acid Level 1.4 mmol/L (0.4-2.0) Anion Gap 7.0 mmol/L (3-11) Est Creatinine Clear Calc Drug Dose 51.9 ml/min Estimated GFR () 76.6 Estimated GFR (Non- 66.1 BUN/Creatinine Ratio 34.9 (10-20) Calcium Level 9.5 mg/dl (8.5-10.1) Magnesium Level 1.8 mg/dl (1.8-2.4) Assessment and Plan DRAFT 77 yo female admitted on [id number] for ongoing nausea, vomiting, and abdominal pain. - PMH: CAD, MD, HTN, HLD, breast cancer, mild dementia, diverticulosis. - PSH: Right TKA, mastectomy, appendectomy, cholecystectomy, hysterectomy/ oophorectomy - Recent ED visits on and for similar symptoms. Abdominal pain: Patient attributes to bowl of fish soup on 05Mar evening. Denies fevers, CP, SOB. No diarrhea. Brown emesis and formed non-melanotic stool this AM. Is tender throughout, R > L, to palpation. No leukocytosis. LFTs and lipase reassuring. CT a/p on 06Mar noted small bowel fluid without obstruction, thought to be enteritis at the time. 08Mar abd XR noted multiple air-filled SB loops with question of SBO vs ileus. Multiple prior abdominal surgeries also increases risk of SBO. Hypokalemia: K 3.1. Replacing. HTN: On atenolol, verapamil. CAD: On ASA, simvastatin, atenolol. HLD: On simvastatin. Code status: Full code Diet: Was on clears this AM. DVT prophy: Heparin. PT/OT: Deferred. Disbo: Admit to med/surg. Resident Tracking Resident Involvement: Resident Care Provided Care Provided: Adult Hospital Medicine (inpatient)
[2017-12-19] MEDS: HEPARIN SOD 5000 UNIT/0.5 ML CARP SQ SCH (09:00)
[2017-12-19] MEDS: POTASSIUM CHLR 10MEQ / WTR IV SCH ×6 (09:40→21:56)
[2017-12-19] MEDS ORDERED: BISACODYL 10 MG SUPP PR PRN (09:45)
[2017-12-19] MEDS ORDERED: PROMETHAZINE HCL INJ 12.5 MG in SODIUM CHLORIDE 0.9% 50ML 50 ML IV PRN (09:45)
[2017-12-19] MEDS ORDERED: MoRPHine SULFATE 2 MG/ML CARP IV PRN (10:15)
[2017-12-19] MEDS: ASPIRIN 81 MG ECTAB PO SCH (10:41)
[2017-12-19] MEDS: LORATADINE 10 MG TAB PO SCH (10:41)
[2017-12-19] MEDS ORDERED: SOD PHOSPHATE/SOD BIPHOSPHATE ENEMA 132 ML BTL PR PRN (11:00)
[2017-12-19] MEDS: POTASSIUM CHLORIDE 10 MEQ TABCR PO SCH (11:32)
[2017-12-19] MEDS: VERAPAMIL HCL 180 MG TABCR PO SCH (12:12)
[2017-12-19] MEDS: PANTOprazole SOD 40 MG TAB PO SCH (12:13)
--- NOTE | 2017-12-19 12:27 | Surgery Consultation ---
Consultation Date of Consultation: Dec 19, 2017. Attending Physician: Otis Peña MD, PhD Reason for Consultation: SBO History of Present Illness Erica is a pleasant 77 year-old female who originally presented to emergency department on 12/15/2017 with complaint of abdominal pain and nausea after eating fish soup out at a restaurant. CT scan of abdomen and pelvis without oral or IV contrast showed small bowel fluid however no dilatation or wall thickening concerning for SBO. She was discharged home with oral Zofran and pain medication. She presented back to emergency department on 12/17/2017 with continued abdominal pain and nausea. A chest and abdominal x-ray showed some dilated small bowel concerning for SBO vs Ileus. Patient was asked if she wanted to be admitted and elected to be discharged home from ER. Patient then again presented to emergency room last evening with continued abdominal pain, nausea, and vomiting. Another abdominal x-ray showed progression of dilated small bowel at 3.5 cm transversely concerning for SBO. Patient was admitted and started on IV fluids, antiemetics, Pain management, and clear liquids. She has been unable to keep clear liquids down and has had a few episodes of emesis over 2 liters of bilious output. Erica states she has had a small bowel movement that was soft with enema however has not had a bowel movement on her own for the past 5 days. Usually has loose stools. Denies issues with constipation. CT scan showing evidence of fecal retention in the colon. NGT was placed today. Since NGT was placed she states he may feel slightly better. Past Medical/Surgical History Medical Problems: (1) Anxiety (2) Enteritis (3) Closed fracture nasal bone (4) Closed head injury (5) Concussion (6) Nausea and vomiting (7) Prerenal renal failure (8) Aortic dissection Past Surgical history: 1. Appendectomy 2. Hysterectomy 3. Oophorectomy 4. Open Cholecystectomy 5. Mastectomy x 2 6. Bilateral knee replacement 7. Right ankle surgery Family History Diabetes mellitus FHx: cancer FHx: gallbladder disease FHx: heart disease Hypertension Social History Smoking Status: Never Smoker Marital Status: Housing Status: lives with significant other Occupation Status: retired Allergies Coded Allergies: Iodine (Verified Allergy, Intermediate, RASH TO TOPICAL IODINE, 12/16/17) Adhesives (Verified Allergy, Unknown, RED SKIN, 12/16/17) Penicillins (Verified Allergy, Unknown, 12/16/17) Sulfa Drugs (Verified Allergy, Unknown, 12/16/17) Chlorhexidine (Verified Adverse Reaction, Intermediate, SEVERE BURNING WITH CHG WIPES, 12/16/17) Home Medications Scheduled Aspirin (Aspirin Ec), 81 MG PO DAILY Atenolol (Tenormin), 12.5 MG PO DAILY Cholecalciferol (Vitamin D), 2,000 UNITS PO DAILY Dicyclomine HCl (Dicyclomine HCl), 20 MG PO BID Doxylamine Succinate (Sleep) (Ra Sleep Aid), 25 MG PO HS Loratadine (Claritin), 10 MG PO DAILY Naproxen Sodium (Aleve), 220 MG PO BID Nitroglycerin (Nitrostat), 0.3 MG UT PRN Omeprazole (Prilosec), 20 MG PO DAILY Ondasetron Odt (Zofran Odt), 4 MG SL Q6H Potassium Chloride (Micro-K Ext Rel), 10 MEQ PO UD Simvastatin (Zocor), 20 MG PO QPM Verapamil Hcl (Calan Sr Ext Rel), 180 MG PO DAILY Scheduled PRN Ondansetron Hcl (Zofran), 4 MG PO Q6 PRN for Nausea Oxycodone/Acetaminophen 5MG/325MG (Percocet 5MG/325MG), 1 TAB PO Q6H PRN for Pain Current Inpatient Medications Current Inpatient Medications Medications (Trade) Dose Ordered Sig/Yeny Route Start Time Stop Time Status Last Admin Dose Admin Acetaminophen (Tylenol Tab) 650 mg Q4H PRN PO 12/18/17 14:45 01/17/18 14:44 Al Hydrox/Mg Hydrox/Simethicone (Maalox Max Susp) 15 ml Q4H PRN PO 12/18/17 14:45 01/17/18 14:44 12/18/17 22:10 15 ML Magnesium Hydroxide (Milk Of Magnesia Susp) 30 ml Q6H PRN PO 12/18/17 14:45 01/17/18 14:44 Polyethylene (Miralax Powder Packet) 17 gm DAILY PRN PO 12/18/17 14:45 01/17/18 14:44 Ondansetron HCl (Zofran Inj) 4 mg Q6H PRN IV 12/18/17 14:45 01/17/18 14:44 12/19/17 05:46 4 MG Heparin Sodium (Porcine) (Heparin Sq 5000 Unit/0.5ml) 5,000 unit Q12H SQ 12/18/17 21:00 01/17/18 20:59 12/18/17 22:07 5,000 UNIT Aspirin (Ecotrin Tab) 81 mg DAILY PO 12/19/17 09:00 01/18/18 08:59 Atenolol (Tenormin Tab) 12.5 mg DAILY PO 12/19/17 09:00 01/18/18 08:59 Loratadine (Claritin Tab) 10 mg DAILY PO 12/19/17 09:00 01/18/18 08:59 Nitroglycerin (Nitrostat Tab) 0.3 mg UD PRN UT 12/18/17 14:45 01/17/18 14:44 Simvastatin (Zocor Tab) 20 mg QPM PO 12/18/17 21:00 01/17/18 20:59 Verapamil HCl (Calan-Sr Tab) 180 mg DAILY PO 12/19/17 09:00 01/18/18 08:59 Miscellaneous Information (Order Awaiting Action) 1 ea QS N/A 12/18/17 16:00 01/17/18 15:59 Pantoprazole Sodium (Protonix Tab) 40 mg DAILY PO 12/19/17 09:00 01/18/18 08:59 Potassium Chloride/Sodium Chloride 1,000 ml @ 125 mls/hr Q8H IV 12/18/17 17:30 12/19/17 17:29 12/19/17 08:04 125 MLS/HR Metoclopramide HCl (Reglan Inj) 5 mg Q8H PRN IV. 12/18/17 15:00 01/17/18 14:59 12/19/17 08:02 5 MG Miscellaneous (Iv Fluids Completed) 1 ea PRN PRN N/A 12/18/17 15:00 12/18/18 14:59 12/19/17 08:04 1 EA Potassium Chloride (Klor-Con M10) 10 meq DAILY@1200 PO 12/19/17 12:00 01/18/18 11:59 Promethazine HCl 12.5 mg/Sodium Chloride 50.5 ml @ 204 mls/hr Q6H PRN IV 12/19/17 09:45 01/18/18 09:44 12/19/17 11:32 204 MLS/HR Bisacodyl (Dulcolax Supp) 10 mg DAILY PRN SD 12/19/17 09:45 01/18/18 09:44 12/19/17 10:28 10 MG Morphine Sulfate (MoRPHine SULFATE INJ) 2 mg Q4H PRN IV 12/19/17 10:15 01/02/18 10:14 12/19/17 10:14 2 MG Sodium Biphosphate/ Sodium Phosphate (Fleet Enema) 132 ml TODAY@1100 PRN SD 12/19/17 11:00 12/19/17 23:59 Review of Systems Constitutional: No fever, No chills, No sweats ENT: No sore throat Respiratory: No cough Cardiovascular: No chest pain Abdomen: + pain, + nausea, + vomiting, + constipation, No GI bleeding Genitourinary - Female: No dysuria, No urinary frequency, No urinary urgency Hematologic / Lymphatic: No abnormal bleeding/bruising Integumentary: No rash Physical Exam Date Time Temp Pulse Resp B/P (MAP) Pulse Ox O2 Delivery O2 Flow Rate FiO2 12/19/17 08:51 Room Air 12/19/17 07:01 36.9 92 20 122/76 (91) 92 Room Air 12/19/17 00:01 Room Air 12/18/17 23:27 37.1 94 18 156/90 (112) 92 Room Air 12/18/17 17:57 37.1 89 18 137/91 93 Room Air 12/18/17 16:44 37.1 89 18 137/91 (106) 93 Room Air 12/18/17 15:43 91 16 155/93 92 12/18/17 14:18 84 16 142/92 94 Room Air General Appearance: WD/WN, no apparent distress Head: normocephalic, atraumatic Eyes: sclerae normal ENT: hearing grossly normal, + pertinent finding (NGT present, draining bilious output) Respiratory/Chest: lungs clear, normal breath sounds, no respiratory distress, no accessory muscle use Cardiovascular: regular rate, rhythm, no murmur Abdomen/GI: soft, no organomegaly, no pulsatile mass, + tenderness (more so in the right lower abdomen, no peritonitis, rigidity, or guarding), + distended Neurologic/Psych: alert, normal mood/affect, oriented x 3 Skin: normal color, warm/dry, no rash Laboratory Results Last 24 Hours Test 12/18/17 12:47 12/18/17 15:08 12/19/17 01:35 White Blood Count 11.18 K/uL Red Blood Count 4.73 M/uL Hemoglobin 15.5 g/dL 14.0 g/dL Hematocrit 45.1 % 40.7 % Mean Corpuscular Volume 95.3 fL Mean Corpuscular Hemoglobin 32.8 pg Mean Corpuscular Hemoglobin Concent 34.4 g/dl Platelet Count 179 K/uL Mean Platelet Volume 9.7 fL Neutrophils (%) (Auto) 87.0 % Lymphocytes (%) (Auto) 4.1 % Monocytes (%) (Auto) 8.5 % Eosinophils (%) (Auto) 0.1 % Basophils (%) (Auto) 0.1 % Neutrophils # (Auto) 9.73 K/uL Lymphocytes # (Auto) 0.46 K/uL Monocytes # (Auto) 0.95 K/uL Eosinophils # (Auto) 0.01 K/uL Basophils # (Auto) 0.01 K/uL RDW Standard Deviation 46.4 fL RDW Coefficient of Variation 13.3 % Immature Granulocyte % (Auto) 0.2 % Immature Granulocyte # (Auto) 0.02 K/uL Sodium Level 134 mmol/L 136 mmol/L Potassium Level 3.5 mmol/L 3.1 mmol/L Chloride Level 96 mmol/L 91 mmol/L Carbon Dioxide Level 31 mmol/L 38 mmol/L Anion Gap 7.0 mmol/L 7.0 mmol/L Blood Urea Nitrogen 27 mg/dl 30 mg/dl Creatinine 0.91 mg/dl 0.85 mg/dl Est Creatinine Clear Calc Drug Dose 48.4 ml/min 51.9 ml/min Estimated GFR () 70.5 76.6 Estimated GFR (Non- 60.9 66.1 BUN/Creatinine Ratio 29.7 34.9 Random Glucose 136 mg/dl 143 mg/dl Calcium Level 9.8 mg/dl 9.5 mg/dl Total Bilirubin 0.8 mg/dl Aspartate Amino Transf (AST/SGOT) 36 U/L Alanine Aminotransferase (ALT/SGPT) 33 U/L Alkaline Phosphatase 88 U/L Total Protein 7.8 gm/dl Albumin 3.8 gm/dl Globulin 4.0 gm/dl Albumin/Globulin Ratio 1.0 Lipase 187 U/L Lactic Acid Level 1.4 mmol/L Magnesium Level 1.8 mg/dl ABD/PELVIS NO IV OR ORAL CONT 12/16/2017 CLINICAL HISTORY: 77 years-old Female presenting with diffuse abd pain . TECHNIQUE: Multidetector CT of the abdomen and pelvis was performed without the use of intravenous contrast. IV contrast: None. A dose lowering technique was used consistent with the principles of ALARA (as low as reasonably achievable). COMPARISON: 11/02/2007. CT DOSE (mGy.cm): The estimated cumulative dose is 330.72 mGy.cm. FINDINGS: [employer] topogram: Cholecystectomy clips. Lung bases: Minimal basilar opacities, likely atelectasis. Normal heart size. No pericardial or pleural effusion. Liver: Normal morphology. Normal density. Biliary: No gross biliary ductal dilatation allowing for noncontrast technique. Gallbladder surgically absent. Pancreas: Normal noncontrast appearance. Spleen: Normal noncontrast appearance. Adrenal glands: Nodular thickening of the left adrenal gland. Right adrenal gland normal. Kidneys and ureters: Normal noncontrast appearance. No nephrolithiasis. No hydronephrosis. Ureters nondistended but poorly visualized in the mid to distal portions. Bladder: Normal. Pelvic organs: Uterus surgically absent. No adnexal masses. Bowel: Diverticulosis of the sigmoid and descending colon. Mild stool burden. No pericolonic inflammatory change. The appendix is not visualized though no inflammatory changes evident in the cecum. Fluid mildly distends the small bowel though no bowel obstruction is evident. No bowel wall thickening. Peritoneal cavity: No free fluid or intraperitoneal gas. Lymph nodes: No gross lymphadenopathy allowing for noncontrast technique. Vasculature: Atherosclerosis of the normal caliber abdominal aorta. Abdominal wall: Diastasis of the rectus abdominis. Postsurgical changes noted in the infraumbilical ventral abdominal wall. Musculoskeletal: Degenerative changes of the spine. IMPRESSION: 1. No acute intra-abdominal pathology. 2. Fluid noted throughout the small bowel without evidence of bowel obstruction or bowel wall thickening. This could relate to the presence of a mild enteritis or celiac disease among other potential etiologies. 3. Diverticulosis. ABDOMEN 2VIEW W/PA CHEST RTN 12/17/2017 CLINICAL HISTORY: ABDOMINAL PAIN/GI pain COMPARISON STUDY: 10/07/2016. FINDINGS: mild chronic interstitial change throughout both hemithoraces. Small parenchymal infiltrate versus potential nodular pathology medial aspect left base. This measures 2.7 cm maximum dimension. Generalized small bowel ileus versus distal partial small bowel obstructive change. Moderate fecal material throughout the colon. Degenerative changes of the osseous structures throughout. IMPRESSION: 1. Chronic pulmonary interstitial change with a potential superimposed focal infiltrate versus nodule left lung base. 2. CT of the chest is suggested as initial follow-up. 3. Ileus versus partial distal small bowel obstructive change. ABDOMEN 2 VIEW W/PA CHEST RTN 12/18/2017 HISTORY: 77 years-old Female emesis with fecal odor acute emesis COMPARISON: Acute abdominal series radiographs 12/17/2017 TECHNIQUE: PA view of the chest with erect and supine views of the abdomen FINDINGS: Cardiac silhouette is within normal limits in size. Atherosclerosis and tortuosity of the thoracic aorta. Previously questioned nodular opacity of the left lung base is not identified on today's study. There is no pneumothorax, pleural effusion, focal airspace consolidation or overt pulmonary edema. Eventration of the right hemidiaphragm. Surgical clips project over the right axilla. Degenerative changes are seen within the shoulders and spine. No pneumoperitoneum on the upright projection. Moderate volume of formed stool is noted throughout the colon. There are several dilated air-filled loops of small bowel within the central abdomen measuring up to 3.5 cm transversely, progressed from comparison. No pneumatosis identified. No definite urolith. Multilevel advanced degenerative changes of the spine and pelvis. IMPRESSION: 1. Multiple dilated air-filled loops of small bowel within the central abdomen have progressed from prior study suggesting small bowel obstruction or less likely ileus. No pneumatosis identified. Follow-up recommended. 2. Moderate colonic stool volume suggests constipation. 3. No acute process of the chest. Assessment & Plan 77 year-old female who presented to emergency department x 2 earlier this week with complaint of abdominal pain, nausea, and vomiting. Originally imaging via CT scan of abdomen and pelvis without contrast showed signs of possible enteritis and no obstruction. Repeat imaging on further ER visit showed development of dilated small bowel concerning for SBO vs Ileus. Last imaging showed dilated SB measuring up to 3.5 cm transversely. Has had emesis overnight and unable to keep liquids down. Abdomen soft, distended, mild tenderness but no peritonitis. Fecal retention on CT scan however no history of constipation. History of multiple abdominal surgeries including appendectomy, hysterectomy, oophorectomy, and open cholecystectomy. No history of SBO. Plan: No acute surgical intervention required at this time however given patient has had abdominal pain and inability to pass gas/bowel movement without stimulation for 3 days may warrant exploration. NGT was just placed today therefore will continue conservative management and await return of bowel function. Dr. Gonzalez has discussed with patient that if she does not pass gas or have bowel movement we may need to take her to operating room tomorrow for exploratory laparotomy, possible bowel resection. Continue NGT to LIS, IV fluids, IV antiemetics and pain management as needed Change to strict NPO Replete electrolytes (Potassium) Hold Heparin dose this evening Encourage OOB to chair and ambulation, may clamp NGT intermittently for ambulation CBC, CMP, lactic acid and KUB in the am Patient was seen with Dr. Gonzalez who agrees with above.
[2017-12-19 14:45] VITALS: BP 134/78; PULSE 86; TEMP 37; O2SAT 91
[2017-12-19 16:37] LABS: CALCIUM 9.2 mg/dl (8.5-10.1); CREATININE 0.79 mg/dl (0.60-1.20); PHOSPHORUS 2.8 mg/dl (2.5-4.9); POTASSIUM 2.9 mmol/L (3.5-5.1)
[2017-12-19] MEDS ORDERED: POTASSIUM CHLR 20 MEQ / WTR 40 MEQ in PREMIXED WATER 100 ML IV STA (16:46)
[2017-12-19 19:15] VITALS: BP 154/82; PULSE 91; TEMP 36.9; O2SAT 92
[2017-12-19] MEDS: SIMVASTATIN 20 MG TAB PO SCH (20:16)
[2017-12-19 23:05] VITALS: BP 175/90; PULSE 76; TEMP 36.8; O2SAT 92
[2017-12-19] MEDS ORDERED: POTASSIUM CHLORIDE INJ 40 MEQ in SODIUM CHLORIDE 0.9% 1000ML 1,000 ML IV SCH (23:30)
[2017-12-20] VITALS: BP 145/78
--- NOTE | 2017-12-20 07:24 | DIAGNOSTIC IMAGING REPORT ---
KUB HISTORY: Small bowel obstruction with placement of an enteric tube SBO, s/p NGT placement 12/19/2017 COMPARISON: Acute abdominal series radiographs 12/18/2017 FINDINGS: Dilated loops of small bowel are again seen throughout the abdomen measuring up to 3.5 cm transversely. This appears generally unchanged from comparison. Enteric tube has been placed with distal tip terminating within the left upper abdomen, likely within the gastric body. There is moderate volume of formed stool throughout the colon. Surgical clip of the right upper abdomen. No renal calculi. No ureteral calculi. No pneumoperitoneum or pneumatosis. No fracture. Multilevel advanced degenerative changes of the spine. IMPRESSION: 1. Persistent dilated loops of small bowel suggest ongoing small bowel obstruction. 2. Enteric tube has been placed with distal tip terminating in the left upper abdomen, likely within the gastric body. 3. Constipation. Electronically signed by: Patrice Torres M.D. 12/20/2017 7:23 AM Dictated Date/Time: 12/20/2017 7:21 AM
[2017-12-20 07:57] VITALS: BP 154/85; PULSE 79; TEMP 36.9; O2SAT 91
[2017-12-20 08:37] LABS: BASO % 0.3 %; BASO ABS # 0.01 K/uL (0-0.2); EOS % 0.5 %; EOS ABS # 0.02 K/uL (0-0.5); HEMATOCRIT 39.1 % (37-47); IG# 0.01 K/uL (0.00-0.02); LYMPH ABS # 0.67 K/uL (1.2-3.4); MEAN CORPUSCULAR HEMOGLOBIN 32.6 pg (25-34); MEAN CORPUSCULAR HGB CONC 33.2 g/dl (32-36); MEAN PLATELET VOLUME 9.7 fL (7.4-10.4); MONO ABS # 0.79 K/uL (0.11-0.59); NEUT % 61.9 %; NEUT ABS # 2.45 K/uL (1.4-6.5); PLATELET COUNT 145 K/uL (130-400); RED CELL DISTRIBUTION WIDTH CV 13.3 % (11.5-14.5); RED CELL DISTRIBUTION WIDTH SD 47.5 fL (36.4-46.3); WHITE BLOOD COUNT 3.95 K/uL (4.8-10.8)
[2017-12-20 08:53] LABS: ALBUMIN 3.1 gm/dl (3.4-5.0); CALCIUM 8.9 mg/dl (8.5-10.1); CREATININE 0.55 mg/dl (0.60-1.20); POTASSIUM 2.9 mmol/L (3.5-5.1)
[2017-12-20 08:56] LABS: PHOSPHORUS 2.4 mg/dl (2.5-4.9); TOTAL PROTEIN 6.5 gm/dl (6.4-8.2)
[2017-12-20] MEDS: LORATADINE 10 MG TAB PO SCH (09:00)
[2017-12-20] MEDS: VERAPAMIL HCL 180 MG TABCR PO SCH ×2 (09:00→13:32)
[2017-12-20] MEDS: PANTOprazole SOD 40 MG TAB PO SCH (09:00)
[2017-12-20] MEDS: ASPIRIN 81 MG ECTAB PO SCH (09:00)
[2017-12-20] MEDS: D5W AND 1/2NSS + 40MEQ KCL 1,000 ML IV SCH ×2 (09:55→20:34)
[2017-12-20] MEDS: POTASSIUM CHLR 10 MEQ / WTR 10 MEQ in PREMIXED WATER 100 ML IV SCH ×2 (09:56→11:15)
[2017-12-20] MEDS ORDERED: NEOSTIGMINE METHYLSULFATE 5 MG/5 ML SYR ONE (10:48)
[2017-12-20] MEDS ORDERED: SUCCINYLCHOLINE CHLORIDE 20 MG/ML 10 ML VIAL IV ONE (10:48)
[2017-12-20] MEDS ORDERED: PHENYLEPHRINE HCL INJ 10 MG/ML VIAL ONE (10:48)
[2017-12-20] MEDS ORDERED: DEXAMETHASONE SOD INJ 4 MG/ML VIAL ONE (10:48)
[2017-12-20] MEDS ORDERED: ONDANSETRON INJ 2 MG/ML 2 ML VIAL ONE (10:48)
[2017-12-20] MEDS ORDERED: GLYCOPYRROLATE INJ 0.2 MG/ML VIAL ONE (10:48)
[2017-12-20] MEDS ORDERED: LIDOCAINE HCL 2% 2 ML VIAL (20MG/ML) ONE (10:48)
[2017-12-20] MEDS ORDERED: PROPOFOL IV EMULSION 10 MG/ML 20 ML VIAL IV ONE (10:48)
[2017-12-20] MEDS ORDERED: EpHEDrine SULFATE INJ 50 MG/ML AMP ONE (10:48)
[2017-12-20] MEDS ORDERED: FENTANYL CITRATE INJ 50 MCG/1 ML 2 ML VIAL ONE (10:49)
--- NOTE | 2017-12-20 11:20 | Progress Note ---
Subjective Date of Service: Dec 20, 2017. Subjective Pt evaluation today including: conversation w/ patient, conversation w/ family Pt started passing gas last night and has continued to do so today. She also passed a small amount of stool. She feels overall improving. No further nausea. NGT is in place. Still with abd bloating. Pt denies fever, SOB, chest pain, LE pain or swelling. Problem List Medical Problems: (1) Abdominal pain Status: Acute (2) Abdominal pain Status: Acute (3) Closed fracture nasal bone Status: Acute (4) Closed head injury Status: Acute (5) Concussion Status: Acute (6) Nausea and vomiting Status: Acute (7) Prerenal renal failure Status: Acute Review of Systems All Other Systems: Reviewed and Negative Objective Vital Signs Date Time Temp Pulse Resp B/P (MAP) Pulse Ox O2 Delivery O2 Flow Rate FiO2 12/20/17 08:00 Room Air 12/20/17 07:57 36.9 79 18 154/85 (108) 91 Room Air 12/20/17 00:00 145/78 (100) 12/20/17 00:00 Room Air 12/19/17 23:05 36.8 76 16 175/90 (118) 92 Room Air 12/19/17 19:15 Room Air 12/19/17 19:15 36.9 91 16 154/82 (106) 92 Room Air 12/19/17 16:00 Room Air 12/19/17 14:45 37.0 86 18 134/78 (96) 91 Room Air Physical Exam General Appearance: WD/WN, no apparent distress Eyes: normal inspection, sclerae normal Respiratory/Chest: normal breath sounds, no respiratory distress Cardiovascular: regular rate, rhythm, no edema Abdomen: non tender, soft, + distended Extremities: non-tender, no pedal edema Neurologic/Psychiatric: alert, normal mood/affect, oriented x 3 Skin: normal color, warm/dry Laboratory Results Last 24 Hours Test 12/19/17 15:52 12/20/17 08:27 12/20/17 08:28 12/20/17 11:08 Sodium Level 138 mmol/L 139 mmol/L Potassium Level 2.9 mmol/L 2.9 mmol/L Chloride Level 91 mmol/L 96 mmol/L Carbon Dioxide Level 42 mmol/L 37 mmol/L Anion Gap 5.0 mmol/L 6.0 mmol/L Blood Urea Nitrogen 28 mg/dl 26 mg/dl Creatinine 0.79 mg/dl 0.55 mg/dl Est Creatinine Clear Calc Drug Dose 55.8 ml/min 80.1 ml/min Estimated GFR () 83.7 104.9 Estimated GFR (Non- 72.2 90.5 BUN/Creatinine Ratio 35.3 47.7 Random Glucose 110 mg/dl 80 mg/dl Calcium Level 9.2 mg/dl 8.9 mg/dl Phosphorus Level 2.8 mg/dl 2.4 mg/dl Magnesium Level 2.1 mg/dl 2.1 mg/dl Total Bilirubin 0.5 mg/dl Aspartate Amino Transf (AST/SGOT) 22 U/L Alanine Aminotransferase (ALT/SGPT) 23 U/L Alkaline Phosphatase 61 U/L Total Protein 6.5 gm/dl Albumin 3.1 gm/dl Globulin 3.4 gm/dl Albumin/Globulin Ratio 0.9 White Blood Count 3.95 K/uL Red Blood Count 3.99 M/uL Hemoglobin 13.0 g/dL Hematocrit 39.1 % Mean Corpuscular Volume 98.0 fL Mean Corpuscular Hemoglobin 32.6 pg Mean Corpuscular Hemoglobin Concent 33.2 g/dl Platelet Count 145 K/uL Mean Platelet Volume 9.7 fL Neutrophils (%) (Auto) 61.9 % Lymphocytes (%) (Auto) 17.0 % Monocytes (%) (Auto) 20.0 % Eosinophils (%) (Auto) 0.5 % Basophils (%) (Auto) 0.3 % Neutrophils # (Auto) 2.45 K/uL Lymphocytes # (Auto) 0.67 K/uL Monocytes # (Auto) 0.79 K/uL Eosinophils # (Auto) 0.02 K/uL Basophils # (Auto) 0.01 K/uL RDW Standard Deviation 47.5 fL RDW Coefficient of Variation 13.3 % Immature Granulocyte % (Auto) 0.3 % Immature Granulocyte # (Auto) 0.01 K/uL Lactic Acid Level 0.8 mmol/L Assessment and Plan 77 y/o F Hx HTN, HPL, CAD, breast CA. Pt presents to the hospital for the 3rd time in as many days c/o nausea, vomiting and abdominal pain. She enjoyed bowl of fish soup at a local restaurant on Fri and her symptoms began shortly after. She was twice treated and released in the ER. SBO Constipation - Cont antiemetics (Zofran, Reglan, added Phenergan) and IVF normal NSS + Kcl @ 125 Ml/hr Repeat KUB 12/20 shows no change, however pt has started to pass gas and a small amount of stool Gen surg monitoring dulcolax, fleet, MOM, miralax Hypokalemia Likely related to multiple days of emesis, monitor HTN - cont Atenolol, Verapamil as possible - IV substitutions can be made if she is unable to tolerate PO meds. - Blood pressure currently stable in the 120s systolically CAD - will cont ASA, Statin and a B nehal if she is tolerating PO. No evidence of ACS at present. HPL - cont Statin when tolerating PO DVT ppx: Heparin prophylaxis CODE STATUS: Full code Disposition: Patient from home, lives with her
[2017-12-20] MEDS: POTASSIUM CHLORIDE 10 MEQ TABCR PO SCH (12:00)
[2017-12-20] MEDS ORDERED: SOD PHOSPHATE/SOD BIPHOSPHATE ENEMA 132 ML BTL PR STA ×2 (12:20→12:22)
--- NOTE | 2017-12-20 12:22 | Surgery Progress Note ---
Surgery Progress Note Date of Service Dec 20, 2017. Subjective + feeling well pt is doing better, passed gas and BM, pt denies abdominal pain, no nausea, no vomiting, Objective Vital Signs: Date Time Temp Pulse Resp B/P (MAP) Pulse Ox O2 Delivery O2 Flow Rate FiO2 12/20/17 08:00 Room Air 12/20/17 07:57 36.9 79 18 154/85 (108) 91 Room Air 12/20/17 00:00 145/78 (100) 12/20/17 00:00 Room Air 12/19/17 23:05 36.8 76 16 175/90 (118) 92 Room Air 12/19/17 19:15 Room Air 12/19/17 19:15 36.9 91 16 154/82 (106) 92 Room Air 12/19/17 16:00 Room Air 12/19/17 14:45 37.0 86 18 134/78 (96) 91 Room Air General Appearance: WD/WN, no apparent distress Head: normocephalic Neck: supple, no JVD Respiratory/Chest: chest non-tender, lungs clear Cardiovascular: regular rate, rhythm, no edema, no gallop, no JVD Abdomen: normal bowel sounds, non tender, non distended, soft Extremities: normal range of motion, non-tender, normal inspection Laboratory Results: Results Past 24 Hours Test 12/19/17 15:52 12/20/17 08:27 12/20/17 08:28 12/20/17 11:08 Range/Units Sodium Level 138 139 136-145 mmol/L Potassium Level 2.9 2.9 3.2 3.5-5.1 mmol/L Chloride Level 91 96 98-107 mmol/L Carbon Dioxide Level 42 37 21-32 mmol/L Anion Gap 5.0 6.0 3-11 mmol/L Blood Urea Nitrogen 28 26 7-18 mg/dl Creatinine 0.79 0.55 0.60-1.20 mg/dl Est Creatinine Clear Calc Drug Dose 55.8 80.1 ml/min Estimated GFR () 83.7 104.9 Estimated GFR (Non- 72.2 90.5 BUN/Creatinine Ratio 35.3 47.7 10-20 Random Glucose 110 80 70-99 mg/dl Calcium Level 9.2 8.9 8.5-10.1 mg/dl Phosphorus Level 2.8 2.4 2.5-4.9 mg/dl Magnesium Level 2.1 2.1 1.8-2.4 mg/dl Total Bilirubin 0.5 0.2-1 mg/dl Aspartate Amino Transf (AST/SGOT) 22 15-37 U/L Alanine Aminotransferase (ALT/SGPT) 23 12-78 U/L Alkaline Phosphatase 61 45-117 U/L Total Protein 6.5 6.4-8.2 gm/dl Albumin 3.1 3.4-5.0 gm/dl Globulin 3.4 2.5-4.0 gm/dl Albumin/Globulin Ratio 0.9 0.9-2 White Blood Count 3.95 4.8-10.8 K/uL Red Blood Count 3.99 4.2-5.4 M/uL Hemoglobin 13.0 12.0-16.0 g/dL Hematocrit 39.1 37-47 % Mean Corpuscular Volume 98.0 80-100 fL Mean Corpuscular Hemoglobin 32.6 25-34 pg Mean Corpuscular Hemoglobin Concent 33.2 32-36 g/dl Platelet Count 145 130-400 K/uL Mean Platelet Volume 9.7 7.4-10.4 fL Neutrophils (%) (Auto) 61.9 % Lymphocytes (%) (Auto) 17.0 % Monocytes (%) (Auto) 20.0 % Eosinophils (%) (Auto) 0.5 % Basophils (%) (Auto) 0.3 % Neutrophils # (Auto) 2.45 1.4-6.5 K/uL Lymphocytes # (Auto) 0.67 1.2-3.4 K/uL Monocytes # (Auto) 0.79 0.11-0.59 K/uL Eosinophils # (Auto) 0.02 0-0.5 K/uL Basophils # (Auto) 0.01 0-0.2 K/uL RDW Standard Deviation 47.5 36.4-46.3 fL RDW Coefficient of Variation 13.3 11.5-14.5 % Immature Granulocyte % (Auto) 0.3 % Immature Granulocyte # (Auto) 0.01 0.00-0.02 K/uL Lactic Acid Level 0.8 0.4-2.0 mmol/L Assessment & Plan continue treatment, Fleet Enema will F/U
[2017-12-20 13:31] VITALS: BP 165/73
[2017-12-20 15:18] VITALS: BP 137/78; PULSE 74; TEMP 36.4; O2SAT 92
[2017-12-20] MEDS: SIMVASTATIN 20 MG TAB PO SCH (20:17)
[2017-12-20 23:20] VITALS: BP 147/72; PULSE 67; TEMP 36.7; O2SAT 96
[2017-12-21] MEDS: D5W AND 1/2NSS + 40MEQ KCL 1,000 ML IV SCH ×2 (06:05→16:29)
[2017-12-21 07:24] LABS: HEMATOCRIT 38.3 % (37-47); HEMOGLOBIN 12.2 g/dL (12.0-16.0); MEAN CELL VOLUME 98.5 fL (80-100); MEAN CORPUSCULAR HEMOGLOBIN 31.4 pg (25-34); MEAN CORPUSCULAR HGB CONC 31.9 g/dl (32-36); MEAN PLATELET VOLUME 10.3 fL (7.4-10.4); PLATELET COUNT 129 K/uL (130-400); RED CELL DISTRIBUTION WIDTH CV 13.2 % (11.5-14.5); WHITE BLOOD COUNT 4.39 K/uL (4.8-10.8)
[2017-12-21 07:53] LABS: ALBUMIN 2.7 gm/dl (3.4-5.0); CALCIUM 8.4 mg/dl (8.5-10.1); CREATININE 0.53 mg/dl (0.60-1.20); POTASSIUM 3.3 mmol/L (3.5-5.1)
[2017-12-21 08:55] VITALS: BP 147/82; PULSE 66; TEMP 36.8; O2SAT 95
[2017-12-21] MEDS: VERAPAMIL HCL 180 MG TABCR PO SCH (09:02)
[2017-12-21] MEDS: LORATADINE 10 MG TAB PO SCH (09:02)
[2017-12-21] MEDS: ASPIRIN 81 MG ECTAB PO SCH (09:02)
[2017-12-21] MEDS: PANTOprazole SOD 40 MG TAB PO SCH (09:03)
--- NOTE | 2017-12-21 11:17 | Surgery Progress Note ---
Surgery Progress Note Date of Service Dec 21, 2017. Subjective + feeling well pt is doing better, passed gas and BM, pt denies abdominal pain, Objective Vital Signs: Date Time Temp Pulse Resp B/P (MAP) Pulse Ox O2 Delivery O2 Flow Rate FiO2 12/21/17 09:55 Room Air 12/21/17 08:55 36.8 66 17 147/82 (103) 95 Room Air 12/21/17 00:50 Room Air 12/20/17 23:20 36.7 67 16 147/72 (97) 96 Room Air 12/20/17 15:20 Room Air 12/20/17 15:18 36.4 74 16 137/78 (97) 92 12/20/17 13:31 165/73 (103) General Appearance: WD/WN, no apparent distress Head: normocephalic Neck: supple, no adenopathy, no JVD Respiratory/Chest: chest non-tender, lungs clear Cardiovascular: regular rate, rhythm, no edema, no JVD Abdomen: normal bowel sounds, non tender, non distended, soft Extremities: normal range of motion, non-tender, normal inspection Laboratory Results: Results Past 24 Hours Test 12/21/17 07:00 Range/Units White Blood Count 4.39 4.8-10.8 K/uL Red Blood Count 3.89 4.2-5.4 M/uL Hemoglobin 12.2 12.0-16.0 g/dL Hematocrit 38.3 37-47 % Mean Corpuscular Volume 98.5 80-100 fL Mean Corpuscular Hemoglobin 31.4 25-34 pg Mean Corpuscular Hemoglobin Concent 31.9 32-36 g/dl RDW Standard Deviation 47.0 36.4-46.3 fL RDW Coefficient of Variation 13.2 11.5-14.5 % Platelet Count 129 130-400 K/uL Mean Platelet Volume 10.3 7.4-10.4 fL Sodium Level 139 136-145 mmol/L Potassium Level 3.3 3.5-5.1 mmol/L Chloride Level 101 98-107 mmol/L Carbon Dioxide Level 33 21-32 mmol/L Anion Gap 5.0 3-11 mmol/L Blood Urea Nitrogen 22 7-18 mg/dl Creatinine 0.53 0.60-1.20 mg/dl Est Creatinine Clear Calc Drug Dose 83.2 ml/min Estimated GFR () 106.1 Estimated GFR (Non- 91.6 BUN/Creatinine Ratio 41.2 10-20 Random Glucose 114 70-99 mg/dl Calcium Level 8.4 8.5-10.1 mg/dl Total Bilirubin 0.5 0.2-1 mg/dl Aspartate Amino Transf (AST/SGOT) 19 15-37 U/L Alanine Aminotransferase (ALT/SGPT) 23 12-78 U/L Alkaline Phosphatase 55 45-117 U/L Total Protein 6.0 6.4-8.2 gm/dl Albumin 2.7 3.4-5.0 gm/dl Globulin 3.3 2.5-4.0 gm/dl Albumin/Globulin Ratio 0.8 0.9-2 Assessment & Plan continue treatment, Fleet Enema will F/U 12/21/2017 doing fine, D/C NG tube clear diet, will F/U clear liquids continue treatment, Fleet Enema will F/U
[2017-12-21] MEDS: POTASSIUM CHLORIDE 10 MEQ TABCR PO SCH (12:55)
[2017-12-21 15:15] VITALS: BP 150/74; PULSE 60; TEMP 36.4; O2SAT 96
--- NOTE | 2017-12-21 17:55 | Progress Note ---
Subjective Date of Service: Dec 21, 2017. Subjective Pt evaluation today including: conversation w/ patient, conversation w/ family Pt is upset that she remains inpt. Her NGT was d/c'd and she felt that meant she would be able to go home. She is also upset that her PCP is not here to see her. She also feels that Dr. Mckoy would be able to perform any surgery needed for her SBO. She is demanded d/c prior to trial of any PO options stating that she has had many many bowel movements and is fine to go home. Feels abd distention is resolved. Pt denies fever, SOB, chest pain, abd pain, n /v/c/d, LE pain or swelling. Problem List Medical Problems: (1) Abdominal pain Status: Acute (2) Abdominal pain Status: Acute (3) Closed fracture nasal bone Status: Acute (4) Closed head injury Status: Acute (5) Concussion Status: Acute (6) Nausea and vomiting Status: Acute (7) Prerenal renal failure Status: Acute Review of Systems All Other Systems: Reviewed and Negative Objective Vital Signs Date Time Temp Pulse Resp B/P (MAP) Pulse Ox O2 Delivery O2 Flow Rate FiO2 12/21/17 15:15 Room Air 12/21/17 15:15 36.4 60 18 150/74 (99) 96 Room Air 12/21/17 09:55 Room Air 12/21/17 08:55 36.8 66 17 147/82 (103) 95 Room Air 12/21/17 00:50 Room Air 12/20/17 23:20 36.7 67 16 147/72 (97) 96 Room Air Physical Exam Comments: General Appearance: WD/WN, no apparent distress Eyes: normal inspection, sclerae normal Respiratory/Chest: normal breath sounds, no respiratory distress Cardiovascular: regular rate, rhythm, no edema Abdomen: non tender, soft, + distended-improving Extremities: non-tender, no pedal edema Neurologic/Psychiatric: alert, normal mood/affect, oriented x 3 Skin: normal color, warm/dry Laboratory Results Last 24 Hours Test 12/21/17 07:00 White Blood Count 4.39 K/uL Red Blood Count 3.89 M/uL Hemoglobin 12.2 g/dL Hematocrit 38.3 % Mean Corpuscular Volume 98.5 fL Mean Corpuscular Hemoglobin 31.4 pg Mean Corpuscular Hemoglobin Concent 31.9 g/dl RDW Standard Deviation 47.0 fL RDW Coefficient of Variation 13.2 % Platelet Count 129 K/uL Mean Platelet Volume 10.3 fL Sodium Level 139 mmol/L Potassium Level 3.3 mmol/L Chloride Level 101 mmol/L Carbon Dioxide Level 33 mmol/L Anion Gap 5.0 mmol/L Blood Urea Nitrogen 22 mg/dl Creatinine 0.53 mg/dl Est Creatinine Clear Calc Drug Dose 83.2 ml/min Estimated GFR () 106.1 Estimated GFR (Non- 91.6 BUN/Creatinine Ratio 41.2 Random Glucose 114 mg/dl Calcium Level 8.4 mg/dl Total Bilirubin 0.5 mg/dl Aspartate Amino Transf (AST/SGOT) 19 U/L Alanine Aminotransferase (ALT/SGPT) 23 U/L Alkaline Phosphatase 55 U/L Total Protein 6.0 gm/dl Albumin 2.7 gm/dl Globulin 3.3 gm/dl Albumin/Globulin Ratio 0.8 Assessment and Plan 77 y/o F Hx HTN, HPL, CAD, breast CA. Pt presents to the hospital for the 3rd time in as many days c/o nausea, vomiting and abdominal pain. She enjoyed bowl of fish soup at a local restaurant on Fri and her symptoms began shortly after. She was twice treated and released in the ER. SBO Constipation - Cont antiemetics (Zofran, Reglan, added Phenergan) and IVF normal NSS + Kcl @ 125 Ml/hr Repeat KUB 12/20 shows no change, however pt has started to pass gas and a small amount of stool Gen surg monitoring dulcolax, fleet, MOM, miralax Trial of clears and can advance to full if tolerating Hesitant to d/c pt to home given level of constipation and need for monitoring response to PO in a pt who has a mild degree of dementia and noted to misreport s/sx and other info Hypokalemia Likely related to multiple days of emesis, monitor HTN - cont Atenolol, Verapamil as possible - IV substitutions can be made if she is unable to tolerate PO meds. - Blood pressure currently stable in the 120s systolically CAD - will cont ASA, Statin and a B nehal if she is tolerating PO. No evidence of ACS at present. HPL - cont Statin when tolerating PO DVT ppx: Heparin prophylaxis CODE STATUS: Full code Disposition: Patient from home, lives with her
[2017-12-21] MEDS: SIMVASTATIN 20 MG TAB PO SCH (20:43)
[2017-12-21 23:25] VITALS: BP 133/70; PULSE 61; TEMP 36.5; O2SAT 99
[2017-12-22] MEDS: D5W AND 1/2NSS + 40MEQ KCL 1,000 ML IV SCH (02:33)
[2017-12-22 07:27] LABS: CREATININE 0.65 mg/dl (0.60-1.20)
[2017-12-22 07:28] LABS: CALCIUM 8.8 mg/dl (8.5-10.1); POTASSIUM 4.4 mmol/L (3.5-5.1)
[2017-12-22 07:54] VITALS: BP_SYST 160; BP_DIAS 78; BP_DIAS 80; PULSE 66; TEMP 36.5; O2SAT 99
[2017-12-22 08:00] VITALS: O2SAT 99
[2017-12-22] MEDS: ASPIRIN 81 MG ECTAB PO SCH (09:36)
[2017-12-22] MEDS: PANTOprazole SOD 40 MG TAB PO SCH (09:37)
[2017-12-22] MEDS: VERAPAMIL HCL 180 MG TABCR PO SCH (09:37)
[2017-12-22] MEDS: LORATADINE 10 MG TAB PO SCH (09:37)
--- NOTE | 2017-12-22 10:37 | Discharge Instructions ---
Discharge Instructions Date of Service Dec 22, 2017. Admission Reason for Admission: Enteritis, Intractable Nausea And Vomiting Discharge Discharge Diagnosis / Problem: SBO Discharge Goals Goal(s): Decrease discomfort, Improve function, Increase independence, Improve disease control, Improve nutritional status, Learn about illness, Diagnostic testing, Therapeutic intervention, Prevent Disease Progression, Specific goals Activity Recommendations Activity Limitations: resume your previous activity Lifting Limitations: none Exercise/Sports Limitations: none Shower/Bathe: no limitations . Instructions / Follow-Up Instructions / Follow-Up you have bowel obstruction, and Constipation resolved you need to take Miralax if you have no bowel moment you have hypertension an heart disease, you need to continue home medication - you need to follow up with your primary care physician in 1 week, - take medication as instructed, never overdose or any misuse, or take with alcohol, because misuse of medicine may cause organ damage or , call your primary care physician if have questions of medicaitons. - call your primary care physician OR go to local emergency room if has any fever/chill, chest pain, shortness of breathing, nausea/vomiting/abdominal pain , facial droop/slurry speech/local weakness, or if has any questions. - fall precaution - diet as instructed - you need to follow up with your subspecialist Current Hospital Diet Patient's current hospital diet: Full Liquid Diet, Regular Diet Discharge Diet Recommended Diet: Regular Diet (small amount , and meal ) Procedures Procedures Performed: no Pending Studies Studies pending at discharge: no Laboratory Results Meds Administered (Past 24Hrs) Medications (Trade) Dose Ordered Sig/Yeny Route Start Time Stop Time Status Last Admin Dose Admin Sodium Biphosphate/ Sodium Phosphate (Fleet Enema) 132 ml NOW STAT [facility] 12/20/17 12:22 12/20/17 12:31 DC 12/20/17 13:32 132 ML Medical Emergencies . Who to Call and When: Medical Emergencies: If at any time you feel your situation is an emergency, please call 911 immediately. . Non-Emergent Contact Non-Emergency issues call your: Primary Care Provider . . "Provider Documentation" section prepared by Otis Peña. .
[2017-12-22] MEDS ORDERED: MRLP17X PO (10:44)
[2017-12-22 10:51] VITALS: BP 152/85; PULSE 66; TEMP 36.5; O2SAT 99
[2017-12-22 10:56] VITALS: BP 152/85
[2017-12-22] MEDS: POTASSIUM CHLORIDE 10 MEQ TABCR PO SCH (12:09)
--- NOTE | 2017-12-22 12:54 | Discharge Summary ---
Discharge Summary Date of Service Dec 22, 2017. Discharge Summary Admission Date: Dec 19, 2017 at 12:06 Discharge Date: Dec 22, 2017 Discharge Disposition: Home Principal Diagnosis: bowel obstruction, and Constipation resolved Problems/Secondary Diagnoses: hypertension an heart disease, you need to continue home medication Immunizations: Have You Had Influenza Vaccine: Yes Influenza Vaccine Date: Jul 14, 2011 History of Tetanus Vaccine?: Yes Tetanus Immunization Date: Jul 11, 2005 History of Pneumococcal: Yes Pneumococcal Date: Jul 11, 2006 History of Hepatitis B Vaccine: Yes Hepatitis Immunization Date: Jul 11, 2010 Procedures: NG tube placement and was removed Consultations: Surgeon Medication Reconciliation New Medications: Polyethylene (Miralax) 17 Gm Pow 17 GM PO DAILY PRN for Constipation for 7 Days Continued Medications: Aspirin (Aspirin Ec) 81 Mg Tab 81 MG PO DAILY Atenolol (Tenormin) 25 Mg Tab 12.5 MG PO DAILY, 0 Refills Cholecalciferol (Vitamin D) 2,000 Unit Tab 2000 UNITS PO DAILY Doxylamine Succinate (Sleep) (Ra Sleep Aid) 25 Mg Tab 25 MG PO HS Loratadine (Claritin) 10 Mg Tab 10 MG PO DAILY, 0 Refills Naproxen Sodium (Aleve) 220 Mg Tab 220 MG PO BID, TAB Nitroglycerin (Nitrostat) 0.3 Mg Tab 0.3 MG UT PRN, 0 Refills Omeprazole (Prilosec) 20 Mg Capcr 20 MG PO DAILY, 0 Refills Ondansetron Hcl (Zofran) 4 Mg Tab 4 MG PO Q6 PRN for Nausea, TAB Ondasetron Odt (Zofran Odt) 4 Mg Tab 4 MG SL Q6H for Nausea, #20 TAB Oxycodone/Acetaminophen 5MG/325MG (Percocet 5MG/325MG) Tab 1 TAB PO Q6H PRN for Pain, #20 TAB Potassium Chloride (Micro-K Ext Rel) 10 Meq Capcr 10 MEQ PO UD, CAP Simvastatin (Zocor) 10 Mg Tab 20 MG PO QPM, 0 Refills Verapamil Hcl (Calan Sr Ext Rel) 180 Mg Tab 180 MG PO DAILY, TAB Discontinued Medications: Dicyclomine HCl (Dicyclomine HCl) 20 Mg Tab 20 MG PO BID Discharge Exam Sitting up to chair, no nausea vomiting, tolerate clear liquid diet, is going to advance diet, has bowel movement and passing gas, no abdominal pain diarrhea constipation Review of Systems: Constitutional: No fever, No chills, No sweats, No weight loss, No weakness , No fatigue, No problem reported Eyes: No worsening of vision, No eye pain, No redness, No discharge, No diplopia, No problem reported ENT: No hearing loss, No unusual epistaxis, No nasal symptoms, No sore throat, No tinnitus, No dental problems, No trouble swallowing, No problem reported Respiratory: No cough, No sputum, No wheezing, No shortness of breath, No dyspnea on exertion, No dyspnea at rest, No hemoptysis, No problem reported Cardiovascular: No chest pain, No orthopnea, No PND, No edema, No claudication, No palpitations, No problem reported Musculoskeletal: No joint pain, No muscle pain, No swelling, No calf pain, No problem reported Genitourinary - Female: No dysuria, No urinary frequency, No urinary urgency , No urinary incontinence, No urinary retention, No hematuria, No dysmenorrhea, No menorrhagia, No metrorrhagia, No rash, No vaginal bleeding, No vaginal discharge, No vaginal itching, No vulvodynia, No , No problem reported Neurologic: No memory loss, No paralysis, No weakness, No numbness/tingling , No vertigo, No balance problems, No problem reported Psychiatric: No depression symptoms, No anhedonism, No anxiety, No insomnia , No substance abuse, No problem reported Endocrine: No fatigue, No excessive thirst, No excessive urination, No problem reported Hematologic / Lymphatic: No abnormal bleeding/bruising, No clotting problems , No swollen lymph nodes, No night sweats, No problem reported Integumentary: No rash, No itch, No new/changing skin lesions, No color change, No bleeding, No problem reported Physical Exam: General Appearance: WD/WN, no apparent distress Eyes: normal inspection, PERRL, EOMI ENT: normal ENT inspection, hearing grossly normal Neck: supple, no adenopathy, thyroid normal Respiratory/Chest: chest non-tender, lungs clear, normal breath sounds, no respiratory distress, + decreased breath sounds Cardiovascular: regular rate, rhythm, no edema, no gallop, no JVD Abdomen / GI: normal bowel sounds, non tender, soft, no organomegaly, no pulsatile mass Extremities: normal inspection, no calf tenderness, normal capillary refill Neurologic/Psychiatric: search engine optimization strategist II-XII nml as tested, no motor/sensory deficits , alert, normal mood/affect, normal reflexes, oriented x 3 Skin: normal color, warm/dry, no rash Hospital Course 77 y/o F Hx HTN, HPL, CAD, breast CA. Pt was admitted to this hospital on December 18, 2017 for the 3rd time to the emergency room in as many days c/o nausea , vomiting and abdominal pain. took bowl of fish soup at a local restaurant prior to admission and her symptoms began shortly after. She was twice treated and released in the ER. SBO Constipation, has been on antiemetics (Zofran, Reglan, added Phenergan) and IVF normal NSS + Kcl @ 125 Ml/hr Repeat KUB 12/20 shows no change, however pt has started to pass gas and a small amount of stool Gen surg monitoring dulcolax, fleet, MOM, miralax Trial of clears and can advance to full if tolerating Today patient is doing well, no nausea vomiting, is going to advance to regular diet and will discharge home if tolerated, Has advised frequent meal and small amount, low residual diet Hypokalemia, replaced and resolved HTN - cont Atenolol, Verapamil as possible - IV substitutions can be made if she is unable to tolerate PO meds. Stable will resume home oral blood pressure medicine CAD - will cont ASA, Statin and a B nehal if she is tolerating PO. No evidence of ACS at present. HPL - cont Statin when tolerating PO DVT ppx: Heparin prophylaxis CODE STATUS: Full code Disposition: The patient is doing well, going to discharge home, discussed with patient and at bedside, updated them patient's conditions and care plan , answered all questions Instructions / Follow-Up you have bowel obstruction, and Constipation resolved you need to take Miralax if you have no bowel moment you have hypertension an heart disease, you need to continue home medication - you need to follow up with your primary care physician in 1 week, - take medication as instructed, never overdose or any misuse, or take with alcohol, because misuse of medicine may cause organ damage or , call your primary care physician if have questions of medicaitons. - call your primary care physician OR go to local emergency room if has any fever/chill, chest pain, shortness of breathing, nausea/vomiting/abdominal pain , facial droop/slurry speech/local weakness, or if has any questions. - fall precaution - diet as instructed - you need to follow up with your subspecialist Total Time Spent: Less than 30 minutes This includes examination of the patient, discharge planning, medication reconciliation, and communication with other providers. Discharge Instructions Please refer to the electronic Patient Visit Report (Discharge Instructions) for additional information. Additional Copies To RV. Farley MD
--- NOTE | 2017-12-22 14:15 | Surgery Progress Note ---
Surgery Progress Note Date of Service Dec 22, 2017. PATIENT EVALUATED AT 10 AM Subjective Post OP Day: HD # 3 + feeling well, + bowel movement, + flatus, + diet (tolerating full liquids, diet advance for lunch today), No complaints, No nausea, No vomiting Objective Vital Signs: Date Time Temp Pulse Resp B/P (MAP) Pulse Ox O2 Delivery O2 Flow Rate FiO2 12/22/17 10:56 152/85 (107) 12/22/17 10:51 36.5 66 22 99 Room Air 12/22/17 08:00 99 Room Air 12/22/17 07:54 36.5 66 22 160/80 (106) 99 Room Air 160/78 (105) 12/22/17 07:50 Room Air 12/21/17 23:45 Room Air 12/21/17 23:25 36.5 61 16 133/70 (91) 99 Room Air 12/21/17 15:15 Room Air 12/21/17 15:15 36.4 60 18 150/74 (99) 96 Room Air General Appearance: WD/WN, no apparent distress Head: normocephalic, atraumatic Neck: trachea midline Respiratory/Chest: no respiratory distress, no accessory muscle use Laboratory Results: Results Past 24 Hours Test 12/22/17 06:36 Range/Units Sodium Level 137 136-145 mmol/L Potassium Level 4.4 3.5-5.1 mmol/L Chloride Level 103 98-107 mmol/L Carbon Dioxide Level 29 21-32 mmol/L Anion Gap 5.0 3-11 mmol/L Blood Urea Nitrogen 17 7-18 mg/dl Creatinine 0.65 0.60-1.20 mg/dl Est Creatinine Clear Calc Drug Dose 67.8 ml/min Estimated GFR () 99.3 Estimated GFR (Non- 85.6 BUN/Creatinine Ratio 26.1 10-20 Random Glucose 101 70-99 mg/dl Calcium Level 8.8 8.5-10.1 mg/dl Assessment & Plan Partial SBO with fecal retention in colon -vitals stable - no leukocytosis - + bowel function - no abdominal pain Plan: Patient being discharged home later today if tolerated lunch. no surgical interventions as abdominal pain has resolved and bowel function returned. Advised low fiber diet in next few weeks Follow up with [facility] [employer] May follow up with Dr. reyes, Thank you for involving us in the care of this patient Dr. Reyes has seen patient, agrees with above
== END 2017-12-22 14:40 | disposition home or self-care (01) | DRG 390 ==
LOC: C.EDB 12:09 → C.MS2W 14:38 → ENRESERV 14:57 → OBSVTOIN 12-19 12:06 → ENRESERV 12-19 18:02 → C.MSW 12-19 18:58
PROVIDERS: ADMIT Internal Medicine; ATTEND Hospitalist
DX: K56.600 Partial intestinal obstruction, unspecified as to cause (principal); K59.00 Constipation, unspecified; E87.6 Hypokalemia; I10 Essential (primary) hypertension; I25.10 Atherosclerotic heart disease of native coronary artery without angina pectoris; E78.5 Hyperlipidemia, unspecified; F03.90 Unspecified dementia, unspecified severity, without behavioral disturbance, psychotic disturbance, mood disturbance, and anxiety; Z85.3 Personal history of malignant neoplasm of breast; Z90.10 Acquired absence of unspecified breast and nipple; Z96.651 Presence of right artificial knee joint; Z90.49 Acquired absence of other specified parts of digestive tract; Z90.710 Acquired absence of both cervix and uterus; Z90.721 Acquired absence of ovaries, unilateral; Z79.1 Long term (current) use of non-steroidal anti-inflammatories (NSAID); Z79.82 Long term (current) use of aspirin; Z79.899 Other long term (current) drug therapy; Z88.0 Allergy status to penicillin; Z88.2 Allergy status to sulfonamides; Z91.048 Other nonmedicinal substance allergy status; Z83.3 Family history of diabetes mellitus; Z82.49 Family history of ischemic heart disease and other diseases of the circulatory system; Z83.79 Family history of other diseases of the digestive system

== ENCOUNTER → 2018-02-03 | Outpatient (CLI) | payer BC ==
[~2018-02-03] MED LIST changes: -BNT20 PO; +MRLP17X PO
[2018-02-03 10:16] LABS: BASO % 0.6 %; BASO ABS # 0.03 K/uL (0-0.2); EOS % 4.6 %; EOS ABS # 0.24 K/uL (0-0.5); HEMATOCRIT 41.8 % (37-47); HEMOGLOBIN 14.2 g/dL (12.0-16.0); IG# 0.01 K/uL (0.00-0.02); LYMPH % 27.7 %; LYMPH ABS # 1.45 K/uL (1.2-3.4); MEAN CORPUSCULAR HEMOGLOBIN 32.9 pg (25-34); MEAN PLATELET VOLUME 10.4 fL (7.4-10.4); MONO % 10.5 %; MONO ABS # 0.55 K/uL (0.11-0.59); NEUT % 56.4 %; NEUT ABS # 2.95 K/uL (1.4-6.5); PLATELET COUNT 149 K/uL (130-400); RED CELL DISTRIBUTION WIDTH CV 12.8 % (11.5-14.5); RED CELL DISTRIBUTION WIDTH SD 44.5 fL (36.4-46.3); WHITE BLOOD COUNT 5.23 K/uL (4.8-10.8)
[2018-02-03 10:52] LABS: ALBUMIN 3.9 gm/dl (3.4-5.0); ALT/SGPT 25 U/L (12-78); AST/SGOT 26 U/L (15-37); BLOOD UREA NITROGEN 23 mg/dl (7-18); CALCIUM 9.3 mg/dl (8.5-10.1); CARBON DIOXIDE 33 mmol/L (21-32); GLUCOSE 75 mg/dl (70-99); POTASSIUM 3.9 mmol/L (3.5-5.1); SODIUM 140 mmol/L (136-145)
[2018-02-03 10:59] LABS: ALKALINE PHOSPHATASE 83 U/L (45-117); CHOLESTEROL 119 mg/dl (0-200); LDL CHOLESTEROL CALCULATED 35 mg/dl; TOTAL PROTEIN 7.3 gm/dl (6.4-8.2)
== END | disposition home or self-care (01) ==
LOC: C.LAB1850 09:31
PROVIDERS: ATTEND Internal Medicine
DX: E78.5 Hyperlipidemia, unspecified (principal); E83.42 Hypomagnesemia; E53.8 Deficiency of other specified B group vitamins; I10 Essential (primary) hypertension; I47.1 Supraventricular tachycardia

== ENCOUNTER → 2018-05-20 | Outpatient (CLI) | payer BC ==
[~2018-05-20] MED LIST changes: +ACET-1693 PO; +BCTROWC EXT; +GADAVIST IV PRN; +MAGN400T6 PO; +MULT-190 PO; +MULT-506 PO; +NAPR-1264 PO; -NAPR220T PO
--- NOTE | 2018-05-20 13:47 | DIAGNOSTIC IMAGING REPORT ---
MRA CHST SUBCLAV ANGIO COMBO CLINICAL HISTORY: 78 years-old Female presenting with aortic dissection of the descending aorta, asymptomatic. TECHNIQUE: MR angiography of the chest was performed before and after the administration of intravenous contrast. 3-D volumetric and/or maximum intensity projection (MIP) images were subsequently reconstructed for review. IV contrast: 5.5 mL of Gadavist. Stenosis measurements were based on NASCET-like criteria. COMPARISON: 03/05/2016. FINDINGS: Localizer images: Unremarkable. Multiple small renal cysts noted bilaterally. Degenerative change and mild scoliotic curvature of the lumbar spine. Prominence of extra hepatic bile duct may relate to prior cholecystectomy. No bowel obstruction. Remaining visceral within normal limits. Normal heart size. No pericardial or pleural effusion. No focal lung opacity allowing for the sensitivity of MRI. Mild tortuosity of the descending thoracic aorta. The ascending aorta measures 3.6 cm in diameter, previously 3.4 cm. The descending thoracic aorta is normal in caliber. A dissection flap is evident in the distal descending thoracic aorta extending to the level of the takeoff of the superior mesenteric artery. The true and false lumens are patent. Origins of the celiac and superior mesenteric arteries are widely patent. These arteries arise from the true lumen. Extensive postsurgical changes in the right axilla. Postsurgical changes of bilateral mastectomies suggested. Incidental note made of a retroaortic left renal vein. IMPRESSION: 1. No change in the appearance of the short segment dissection in the distal descending thoracic aorta extending to the origin of the super mesenteric artery. 2. Slight interval increase in size of ectasia of the ascending aorta, which measures up to 3.6 cm in diameter, previously 3.4 cm. Electronically signed by: Sudhir Shin M.D. 05/20/2018 1:46 PM Dictated Date/Time: 05/20/2018 1:39 PM
== END | disposition home or self-care (01) ==
LOC: C.MRI 12:20
PROVIDERS: ATTEND Internal Medicine Cardiovascular Disease
DX: I71.01 Dissection of thoracic aorta (principal)

== ENCOUNTER 2018-05-26 17:39 | Observation (INO) | payer BC ==
[~2018-05-26] VITALS: Ht 162.6 cm; Wt 59.9 kg
[~2018-05-26 17:39] MED LIST changes: -ACET-1693 PO; -BCTROWC EXT; -GADAVIST IV PRN; -MAGN400T6 PO; -MULT-190 PO; -MULT-506 PO
[2018-05-26] MEDS ORDERED: OPTIRAY 320 IV PRN (18:00)
[2018-05-26 18:08] LABS: BASO % 0.5 %; BASO ABS # 0.03 K/uL (0-0.2); EOS % 3.2 %; EOS ABS # 0.21 K/uL (0-0.5); HEMATOCRIT 42.7 % (37-47); HEMOGLOBIN 14.5 g/dL (12.0-16.0); IG# 0.01 K/uL (0.00-0.02); LYMPH % 26.2 %; MEAN CELL VOLUME 96.4 fL (80-100); MEAN CORPUSCULAR HEMOGLOBIN 32.7 pg (25-34); MEAN PLATELET VOLUME 9.9 fL (7.4-10.4); MONO % 9.7 %; MONO ABS # 0.63 K/uL (0.11-0.59); NEUT % 60.2 %; PLATELET COUNT 148 K/uL (130-400); RED CELL DISTRIBUTION WIDTH CV 13.1 % (11.5-14.5); RED CELL DISTRIBUTION WIDTH SD 45.9 fL (36.4-46.3); WHITE BLOOD COUNT 6.48 K/uL (4.8-10.8)
--- NOTE | 2018-05-26 18:11 | DIAGNOSTIC IMAGING REPORT ---
CHEST ONE VIEW PORTABLE CLINICAL HISTORY: CHEST PAIN dyspnea COMPARISON STUDY: 12/18/2017 FINDINGS: The bones soft tissues and hemidiaphragms are normal. The cardiomediastinal silhouette is normal. The lungs are clear. The pulmonary vasculature is normal. IMPRESSION: Negative chest. The above report was generated using voice recognition software. It may contain grammatical, syntax or spelling errors. Electronically signed by: Waylon Villalba M.D. 05/26/2018 6:09 PM Dictated Date/Time: 05/26/2018 6:09 PM
[2018-05-26 18:27] LABS: ISTAT CREATININE 0.7 mg/dl (0.6-1.3); ISTAT IONIZED CALCIUM 1.15 mmol/l (1.12-1.32); ISTAT POTASSIUM 3.3 mEq/L (3.3-5.0)
--- NOTE | 2018-05-26 18:27 | EMERGENCY ROOM VISIT NOTE ---
History Report prepared by Tana: Mary Alice Machado Under the Supervision of: Dr. Harry Rodriguez M.D. First contact with patient: 17:45 Chief Complaint: CHEST PAIN Stated Complaint: CHEST PAIN- CARDIAC HX History of Present Illness The patient is a 78 year old female who presents to the Emergency Room with complaints of constant chest pain beginning about 2.5 hours ago. She describes the pain as a pressure that waxes and wanes in severity. The patient reports the pain was initially a 3-4/10 in severity, and was a 8-9/10 at its worst, and is now around a 5/10. She reports the pain radiates, to the top of her head and into her abdomen. The patient notes she took Nitrostat, which relieved her pain. She notes the pain began today while sitting down. The patient notes she is experiencing SOB, and denies coughing or coughing up any blood. The patient was referred to the ED by Dr. Nunez, who she saw yesterday. She reports she returned 1 week ago following a trip to the [place]. The patient notes a history of aortic tear and denies a history of CHF. Source of History: patient Onset: 2.5 hours ago Position: chest Symptom Intensity: 5/10 Quality: pressure Timing: waxes/wanes Modifying Factors (Relieving): other (Nitrostat) Associated Symptoms: + SOB, No cough Review of Systems See HPI for pertinent positives and negatives. A total of ten systems were reviewed and were otherwise negative. Past Medical & Surgical Medical Problems: (1) Aortic dissection (2) Asthma (3) Benign hypertension (4) Chest pain (5) Constipation (6) Coronary artery disease (7) Enteritis (8) History of aortic dissection (9) Intractable nausea and vomiting (10) Obesity (11) Obstructive sleep apnea syndrome (12) Small bowel obstruction Surgical Problems: (1) Hx of tonsillectomy (2) S/P cholecystectomy Family History Diabetes mellitus FHx: cancer FHx: gallbladder disease FHx: heart disease Hypertension Social History Smoking Status: Never Smoker Alcohol Use: occasionally Marital Status: Housing Status: lives with significant other Occupation Status: retired Current/Historical Medications Scheduled Aspirin (Aspirin Ec), 81 MG PO DAILY Atenolol (Tenormin), 25 MG PO DAILY Cholecalciferol (Vitamin D), 2,000 UNITS PO DAILY Doxylamine Succinate (Sleep) (Ra Sleep Aid), 25 MG PO HS Loratadine (Claritin), 10 MG PO DAILY Magnesium Oxide (Mag-Ox), 400 MG PO DAILY Multivitamin (Multivitamin), 1 TAB PO DAILY Mupirocin (Bactroban 2% Oint), 1 APPLN EXT BID Naproxen Sodium (Aleve), 220 MG PO BID Nitroglycerin (Nitrostat), 0.3 MG UT PRN Ocuvite Preservision (Ocuvite Preservision), 1 TAB PO DAILY Omeprazole (Prilosec), 20 MG PO DAILY Simvastatin (Zocor), 20 MG PO QPM Verapamil Hcl (Calan Sr Ext Rel), 180 MG PO DAILY Scheduled PRN Acetaminophen Tab (Tylenol), 325 MG PO Q6H PRN for Headache or Pain Allergies Coded Allergies: Iodine (Verified Allergy, Intermediate, RASH TO TOPICAL IODINE, 12/16/17) Adhesives (Verified Allergy, Unknown, RED SKIN, 12/16/17) Penicillins (Verified Allergy, Unknown, 12/16/17) Sulfa Antibiotics (Verified Allergy, Unknown, ., 05/26/18) Chlorhexidine (Verified Adverse Reaction, Intermediate, SEVERE BURNING WITH CHG WIPES, 12/16/17) Physical Exam Vital Signs Date Time Temp Pulse Resp B/P (MAP) Pulse Ox O2 Delivery O2 Flow Rate FiO2 05/26/18 19:40 65 23 94 Room Air 05/26/18 19:31 176/97 05/26/18 19:10 69 14 100 Room Air 05/26/18 18:40 64 13 91 Room Air 05/26/18 18:34 63 20 149/79 97 Room Air 05/26/18 18:15 56 05/26/18 18:04 98 Room Air 05/26/18 18:04 96 Room Air 05/26/18 17:42 36.7 63 18 194/80 98 Room Air Physical Exam Physical Exam GENERAL: She is oriented to person, place, and time. She appears well- developed and well-nourished. She does not appear distressed. HENT: Exam performed. Head: Normocephalic and atraumatic. Right Ear: External ear normal. No mastoid tenderness. Left Ear: External ear normal. No mastoid tenderness. Mouth/Throat: The oropharynx is clear and moist. No trismus in the jaw. No dental abscesses or uvula swelling. No oropharyngeal exudate or tonsillar abscesses. EYES: Conjunctivae and EOM are normal. Pupils are equal, round, and reactive to light. Right eye exhibits no discharge. Left eye exhibits no discharge. No scleral icterus. NECK: Normal range of motion. Neck supple. No JVD present. No spinous process tenderness present. No carotid bruit present. No rigidity. No tracheal deviation and normal range of motion present. No Brudzinski's sign and no Kernig 's sign noted. CV: Normal rate, regular rhythm, normal heart sounds and intact distal pulses. There is no peripheral edema. Palpable radial pulses bue. PULM/CHEST: Effort normal and breath sounds normal. No respiratory distress. No stridor. She has no wheezes. She has no rales. Chest Wall: She exhibits no tenderness. ABD: The abdomen is soft. Bowel sounds are normal. She has no distension. No mass is present. There is no tenderness. There is no rebound, no guarding, no Dumont's sign and no tenderness at McBurney's point. Rovsig negative MUSC/SKEL: Normal range of motion. There is no peripheral edema, tenderness or deformity. LYMPH: No cervical adenopathy. NEURO: She is alert and oriented to person, place, and time. She has normal strength. No cranial nerve deficit or sensory deficit. Coordination and gait normal. GCS eye subscore is 4. GCS verbal subscore is 5. GCS motor subscore is 6. Cerebellar tests wnl. SKIN: Skin is warm and dry. She is not diaphoretic. PSYCH: She has a normal mood and affect. Behavior is normal. Judgment and thought content normal. Medical Decision & Procedures ER Provider Diagnostic Interpretation: Radiology results as stated below per my review and radiologist interpretation: (CHEST FOR PE) ANGIO WITH CT DOSE: 202.77 mGy.cm HISTORY: Chest pain dyspnea TECHNIQUE: Multiaxial CT images of the chest were performed following the intravenous administration of contrast to evaluate the pulmonary arteries. Maximal intensity projection images were also obtained. A dose lowering technique was utilized adhering to the principles of ALARA. COMPARISON STUDY: 02/17/2017 FINDINGS: There is a normal caliber thoracic aorta with no evidence for dissection. There is no evidence for pulmonary embolus. No pleural effusions. No pneumothorax. The liver and spleen are unremarkable. No mediastinal or hilar lymphadenopathy. The central airways are patent. The lungs are remarkable for mild bibasilar interstitial change. IMPRESSION: No evidence for pulmonary embolus. Mild bibasilar interstitial pneumonitis.. Minimal pulmonary micronodularity stable from the prior 2 studies. The above report was generated using voice recognition software. It may contain grammatical, syntax or spelling errors. Electronically signed by: Waylon Villalba M.D. 05/26/2018 6:35 PM Dictated Date/Time: 05/26/2018 6:33 PM CHEST ONE VIEW PORTABLE CLINICAL HISTORY: CHEST PAIN dyspnea COMPARISON STUDY: 12/18/2017 FINDINGS: The bones soft tissues and hemidiaphragms are normal. The cardiomediastinal silhouette is normal. The lungs are clear. The pulmonary vasculature is normal. IMPRESSION: Negative chest. The above report was generated using voice recognition software. It may contain grammatical, syntax or spelling errors. Electronically signed by: Waylon Villalba M.D. 05/26/2018 6:09 PM Dictated Date/Time: 05/26/2018 6:09 PM Laboratory Results 05/26/18 17:56 Red Blood Count 4.43, Mean Corpuscular Volume 96.4, Mean Corpuscular Hemoglobin 32.7, Mean Corpuscular Hemoglobin Concent 34.0, Mean Platelet Volume 9.9, Neutrophils (%) (Auto) 60.2, Lymphocytes (%) (Auto) 26.2, Monocytes (%) (Auto) 9.7, Eosinophils (%) (Auto) 3.2, Basophils (%) (Auto) 0.5, Neutrophils # (Auto) 3.90, Lymphocytes # (Auto) 1.70, Monocytes # (Auto) 0.63, Eosinophils # (Auto) 0.21, Basophils # (Auto) 0.03 05/26/18 17:56 Test 05/26/18 17:56 05/26/18 18:04 05/26/18 18:18 White Blood Count 6.48 K/uL (4.8-10.8) Red Blood Count 4.43 M/uL (4.2-5.4) Hemoglobin 14.5 g/dL (12.0-16.0) Hematocrit 42.7 % (37-47) Mean Corpuscular Volume 96.4 fL (80-100) Mean Corpuscular Hemoglobin 32.7 pg (25-34) Mean Corpuscular Hemoglobin Concent 34.0 g/dl (32-36) Platelet Count 148 K/uL (130-400) Mean Platelet Volume 9.9 fL (7.4-10.4) Neutrophils (%) (Auto) 60.2 % Lymphocytes (%) (Auto) 26.2 % Monocytes (%) (Auto) 9.7 % Eosinophils (%) (Auto) 3.2 % Basophils (%) (Auto) 0.5 % Neutrophils # (Auto) 3.90 K/uL (1.4-6.5) Lymphocytes # (Auto) 1.70 K/uL (1.2-3.4) Monocytes # (Auto) 0.63 K/uL (0.11-0.59) Eosinophils # (Auto) 0.21 K/uL (0-0.5) Basophils # (Auto) 0.03 K/uL (0-0.2) RDW Standard Deviation 45.9 fL (36.4-46.3) RDW Coefficient of Variation 13.1 % (11.5-14.5) Immature Granulocyte % (Auto) 0.2 % Immature Granulocyte # (Auto) 0.01 K/uL (0.00-0.02) Est Creatinine Clear Calc Drug Dose 58.1 ml/min Estimated GFR () 96.6 Estimated GFR (Non- 83.4 BUN/Creatinine Ratio 29.2 (10-20) Calcium Level 9.1 mg/dl (8.5-10.1) Total Bilirubin 0.4 mg/dl (0.2-1) Direct Bilirubin 0.2 mg/dl (0-0.2) Aspartate Amino Transf (AST/SGOT) 29 U/L (15-37) Alanine Aminotransferase (ALT/SGPT) 29 U/L (12-78) Alkaline Phosphatase 106 U/L (45-117) Troponin I < 0.015 ng/ml (0-0.045) Total Protein 8.1 gm/dl (6.4-8.2) Albumin 4.1 gm/dl (3.4-5.0) Amylase Level 122 U/L (25-115) Lipase 257 U/L (73-393) Bedside Troponin I < 0.030 ng/ml (0-0.045) Bedside Hemoglobin 14.6 g/dl (12.0-16.0) Bedside Hematocrit 43 % (37-47) Bedside Sodium 139 mEq/L (135-144) Bedside Potassium 3.3 mEq/L (3.3-5.0) Bedside Chloride 95 mEq/L (101-112) Bedside Total CO2 30 mEq/l (24-31) Anion Gap 18.0 mmol/L (16-25) Bedside Blood Urea Nitrogen 22 mg/dl (7-18) Bedside Creatinine 0.7 mg/dl (0.6-1.3) Bedside Glucose (other) 85 mg/dl (70-99) Bedside Ionized Calcium ([place]) 1.15 mmol/l (1.12-1.32) Laboratory results reviewed by me Medications Administered Medications (Trade) Dose Ordered Sig/Yeny Route Start Time Stop Time Status Last Admin Dose Admin Aspirin (Aspirin Chew) 324 mg NOW STAT PO 05/26/18 18:56 05/26/18 18:57 DC 05/26/18 19:07 324 MG ECG Per My Interpretation Indication: chest pain Rate (beats per minute): 50 Rhythm: normal sinus Findings: other (VT interval 186, QRS interval 134, QTC interval 395. Bifasicular block present. No ST elevation or depression) ED Course 175: The patient was evaluated in room C4. A complete history and physical exam was performed. 184: Vital signs stable. Labs and imaging within normal limits. Discussed the patient's case with Dr. Nunez, physician aide. He agrees with admittance and repeat troponin to rule out ACS. 185: Ordered Aspirin 324 mg PO. 185: Discussed the patient's case with Dr. Lombardo, [facility] hospitalist. The patient will be evaluated for further treatment and disposition. Medical Decision 184: Vital signs stable. Labs and imaging within normal limits. Discussed the patient's case with Dr. Nunez physician aide. He agrees with admittance and repeat troponin to rule out ACS. Medication Reconcilliation Current Medication List: was personally reviewed by me Blood Pressure Screening Patient's blood pressure: Elevated blood pressure Blood pressure disposition: Referred to PCP (referred to hospitalist) Consults Time Called: 1840 Consulting Physician: Dr. Nunez, physician aide Returned Call: 1848 Discussed the patient's case with Dr. Nunez, physician aide. He agrees with admittance and repeat troponin to rule out ACS. Additional Consults: Time Called: 1862 Consulted Physician: Dr. Lombardo, [facility] hospitalist Returned Call: 1855 Additional Comments: Discussed the patient's case with Dr. Lombardo, [facility] hospitalist. The patient will be evaluated for further treatment and disposition. Impression Primary Impression: Chest pain Scribe Attestation The scribe's documentation has been prepared under my direction and personally reviewed by me in its entirety. I confirm that the note above accurately reflects all work, treatment, procedures, and medical decision making performed by me. The chart was completed utilizing [employer] voice recognition software. Grammatical errors, random word insertions, pronoun errors, and incomplete sentences are an occasional consequence of this system due to software limitations, ambient noise, and hardware issues. Any formal questions or concerns about the content, text, or information contained within the body of this dictation should be directly addressed to the physician for clarification. Departure Information Dispostion Being Evaluated By Hospitalist Referrals RV. Farley MD (PCP) Patient Instructions My [facility] Problem Qualifiers Primary Impression: Chest pain Chest pain type: unspecified Qualified Codes: R07.9 - Chest pain, unspecified
[2018-05-26 18:35] LABS: BLOOD UREA NITROGEN 20 mg/dl (7-18); CALCIUM 9.1 mg/dl (8.5-10.1); CARBON DIOXIDE 31 mmol/L (21-32); CREATININE 0.69 mg/dl (0.60-1.20); GLUCOSE 83 mg/dl (70-99); POTASSIUM 3.2 mmol/L (3.5-5.1); SODIUM 135 mmol/L (136-145)
--- NOTE | 2018-05-26 18:36 | DIAGNOSTIC IMAGING REPORT ---
(CHEST FOR PE) ANGIO WITH CT DOSE: 202.77 mGy.cm HISTORY: Chest pain dyspnea TECHNIQUE: Multiaxial CT images of the chest were performed following the intravenous administration of contrast to evaluate the pulmonary arteries. Maximal intensity projection images were also obtained. A dose lowering technique was utilized adhering to the principles of ALARA. COMPARISON STUDY: 02/17/2017 FINDINGS: There is a normal caliber thoracic aorta with no evidence for dissection. There is no evidence for pulmonary embolus. No pleural effusions. No pneumothorax. The liver and spleen are unremarkable. No mediastinal or hilar lymphadenopathy. The central airways are patent. The lungs are remarkable for mild bibasilar interstitial change. IMPRESSION: No evidence for pulmonary embolus. Mild bibasilar interstitial pneumonitis.. Minimal pulmonary micronodularity stable from the prior 2 studies. The above report was generated using voice recognition software. It may contain grammatical, syntax or spelling errors. Electronically signed by: Waylon Villalba M.D. 05/26/2018 6:35 PM Dictated Date/Time: 05/26/2018 6:33 PM
[2018-05-26] MEDS ORDERED: MAGN400T6 PO (18:56)
[2018-05-26] MEDS ORDERED: ASPIRIN 81 MG CHEW PO STA (18:56)
[2018-05-26] MEDS ORDERED: MULT-506 PO (18:58)
[2018-05-26] MEDS ORDERED: MULT-190 PO (19:00)
[2018-05-26] MEDS ORDERED: BCTROWC EXT (19:01)
[2018-05-26] MEDS ORDERED: ACET-1693 PO (19:03)
[2018-05-26] MEDS ORDERED: ONDANSETRON INJ 2 MG/ML 2 ML VIAL IV PRN (19:45)
[2018-05-26] MEDS ORDERED: NITROGLYCERIN 0.3 MG/1 TAB 100 TAB BTL UT SCH (19:45)
[2018-05-26] MEDS ORDERED: ACETAMINOPHEN IV 100 ML IV PRN (19:45)
[2018-05-26] MEDS ORDERED: ZOLPIDEM TARTRATE 5 MG TAB PO PRN (19:45)
[2018-05-26] MEDS ORDERED: ACETAMINOPHEN 325 MG TAB PO PRN (19:45)
[2018-05-26] MEDS ORDERED: NITROGLYCERIN 0.4 MG SL PER TAB CHARGE SL PRN (19:45)
[2018-05-26 20:08] LABS: ALBUMIN 4.1 gm/dl (3.4-5.0); TOTAL PROTEIN 8.1 gm/dl (6.4-8.2)
[2018-05-26 20:20] VITALS: Ht 162.6 cm; Wt 59.9 kg
--- NOTE | 2018-05-26 20:25 | History and Physical ---
History & Physical Date & Time of Service: May 26, 2018 at 19:45 Chief Complaint: Chest Pain- Cardiac Hx Primary Care Physician: RV. Farley MD History of Present Illness Source: patient, family The patient is a 78 year old female with a past medical history of a Chronic Type B Aortic Dissection, CAD s/p Cardiac Cath in the 's, HTN, Paroxysmal SVT , HLD, OA, History of Breast Cancer with last bone scan in 2013, GERD, and recent SBO in December 2017 that presents to the ED with a > 24 hour history of chest discomfort. The patient began to have a chest pressure like sensation that began yesterday morning and continued to persist throughout the day. She describe the discomfort as substernal pressure, non-radiating, constant, 10/10 at worst, and unlike her previous episodes of chest pain. She appreciates palpitations and shortness of breath during the episode but denies any diaphoresis. The patient was evaluated yesterday by cardiology and at that time was found to have an increased blood pressure (180/96) and had her dose of Atenolol increased to 25 mg BID. The patient was also given a refill for her NTG as it had and filled it this afternoon at 4pm. After taking her NTG she reported an improvement of symptoms but decided to call Cardiology at that time. Due to her continued elevated BP at home (SBP 175), they recommended she come to the emergency department at this time. She currently states that her pain has significantly improved after taking the NTG and is now approximately 1/10 but remains similar in character. She denies any recent fevers, chills, sweats, shortness of breath at this time, abdominal pain, or any other acute complaints. Past Medical/Surgical History Medical Problems: (1) Abdominal pain (2) Abdominal pain (3) Aortic dissection (4) Asthma (5) Benign hypertension (6) Chest pain (7) Closed fracture nasal bone (8) Closed head injury (9) Concussion (10) Constipation (11) Coronary artery disease (12) Enteritis (13) History of aortic dissection (14) Intractable nausea and vomiting (15) Nausea and vomiting (16) Obesity (17) Obstructive sleep apnea syndrome (18) Prerenal renal failure (19) Small bowel obstruction Surgical Problems: (1) Hx of tonsillectomy (2) S/P cholecystectomy Family History Diabetes mellitus FHx: cancer FHx: gallbladder disease FHx: heart disease Hypertension Social History Smoking Status: Never Smoker Marital Status: Occupational Status: retired Immunizations History of Influenza Vaccine: Yes Influenza Vaccine Date: Jul 14, 2011 History of Tetanus Vaccine?: Yes Tetanus Immunization Date: Jul 11, 2005 History of Pneumococcal: Yes Pneumococcal Date: Jul 11, 2006 History of Hepatitis B Vaccine: Yes Hepatitis Immunization Date: Jul 11, 2010 Allergies Coded Allergies: Iodine (Verified Allergy, Intermediate, RASH TO TOPICAL IODINE, 12/16/17) Adhesives (Verified Allergy, Unknown, RED SKIN, 12/16/17) Penicillins (Verified Allergy, Unknown, 12/16/17) Sulfa Antibiotics (Verified Allergy, Unknown, ., 05/26/18) Chlorhexidine (Verified Adverse Reaction, Intermediate, SEVERE BURNING WITH CHG WIPES, 12/16/17) Home Medications Scheduled Aspirin (Aspirin Ec), 81 MG PO DAILY Atenolol (Tenormin), 25 MG PO DAILY Cholecalciferol (Vitamin D), 2,000 UNITS PO DAILY Doxylamine Succinate (Sleep) (Ra Sleep Aid), 25 MG PO HS Loratadine (Claritin), 10 MG PO DAILY Magnesium Oxide (Mag-Ox), 400 MG PO DAILY Multivitamin (Multivitamin), 1 TAB PO DAILY Mupirocin (Bactroban 2% Oint), 1 APPLN EXT BID Naproxen Sodium (Aleve), 220 MG PO BID Nitroglycerin (Nitrostat), 0.3 MG UT PRN Ocuvite Preservision (Ocuvite Preservision), 1 TAB PO DAILY Omeprazole (Prilosec), 20 MG PO DAILY Simvastatin (Zocor), 20 MG PO QPM Verapamil Hcl (Calan Sr Ext Rel), 180 MG PO DAILY Scheduled PRN Acetaminophen Tab (Tylenol), 325 MG PO Q6H PRN for Headache or Pain Review of Systems Constitutional: No fever, No chills, No sweats, No weight loss, No fatigue Respiratory: No cough, No sputum, No wheezing, No shortness of breath Cardiovascular: + chest pain, No edema, No palpitations Abdomen: No pain, No nausea, No vomiting, No diarrhea, No constipation Musculoskeletal: No joint pain, No swelling Neurologic: No memory loss, No numbness/tingling Psychiatric: + anxiety Endocrine: No fatigue Physical Exam Vital Signs Date Time Temp Pulse Resp B/P (MAP) Pulse Ox O2 Delivery O2 Flow Rate FiO2 05/26/18 18:34 63 20 149/79 97 Room Air 05/26/18 18:15 56 05/26/18 18:04 98 Room Air 05/26/18 18:04 96 Room Air 05/26/18 17:42 36.7 63 18 194/80 98 Room Air General Appearance: WD/WN, no apparent distress Head: normocephalic, atraumatic Eyes: normal inspection, sclerae normal Neck: supple, no carotid bruits Respiratory/Chest: lungs clear, normal breath sounds, no respiratory distress, no accessory muscle use, + pertinent finding (Tenderness with palpation of the chest and RUQ. Similar pressure like sensation to that experienced during episode of chest pain) Cardiovascular: regular rate, rhythm, no edema, no gallop Abdomen/GI: normal bowel sounds, non tender, soft Back: normal inspection, no CVA tenderness Extremities/Musculoskelatal: normal inspection, no calf tenderness, no pedal edema, non-tender Neurologic/Psych: alert, normal reflexes, oriented x 3 Diagnostics Laboratory Results Results Past 24 Hours Test 05/26/18 17:56 05/26/18 18:04 05/26/18 18:18 Range/Units White Blood Count 6.48 4.8-10.8 K/uL Red Blood Count 4.43 4.2-5.4 M/uL Hemoglobin 14.5 12.0-16.0 g/dL Hematocrit 42.7 37-47 % Mean Corpuscular Volume 96.4 80-100 fL Mean Corpuscular Hemoglobin 32.7 25-34 pg Mean Corpuscular Hemoglobin Concent 34.0 32-36 g/dl Platelet Count 148 130-400 K/uL Mean Platelet Volume 9.9 7.4-10.4 fL Neutrophils (%) (Auto) 60.2 % Lymphocytes (%) (Auto) 26.2 % Monocytes (%) (Auto) 9.7 % Eosinophils (%) (Auto) 3.2 % Basophils (%) (Auto) 0.5 % Neutrophils # (Auto) 3.90 1.4-6.5 K/uL Lymphocytes # (Auto) 1.70 1.2-3.4 K/uL Monocytes # (Auto) 0.63 0.11-0.59 K/uL Eosinophils # (Auto) 0.21 0-0.5 K/uL Basophils # (Auto) 0.03 0-0.2 K/uL RDW Standard Deviation 45.9 36.4-46.3 fL RDW Coefficient of Variation 13.1 11.5-14.5 % Immature Granulocyte % (Auto) 0.2 % Immature Granulocyte # (Auto) 0.01 0.00-0.02 K/uL Sodium Level 135 136-145 mmol/L Potassium Level 3.2 3.5-5.1 mmol/L Chloride Level 99 98-107 mmol/L Carbon Dioxide Level 31 21-32 mmol/L Anion Gap 5.0 18.0 16-25 mmol/L Blood Urea Nitrogen 20 7-18 mg/dl Creatinine 0.69 0.60-1.20 mg/dl Est Creatinine Clear Calc Drug Dose 58.1 ml/min Estimated GFR () 96.6 Estimated GFR (Non- 83.4 BUN/Creatinine Ratio 29.2 10-20 Random Glucose 83 70-99 mg/dl Calcium Level 9.1 8.5-10.1 mg/dl Troponin I < 0.015 0-0.045 ng/ml Bedside Troponin I < 0.030 0-0.045 ng/ml Bedside Hemoglobin 14.6 12.0-16.0 g/dl Bedside Hematocrit 43 37-47 % Bedside Sodium 139 135-144 mEq/L Bedside Potassium 3.3 3.3-5.0 mEq/L Bedside Chloride 95 101-112 mEq/L Bedside Total CO2 30 24-31 mEq/l Bedside Blood Urea Nitrogen 22 7-18 mg/dl Bedside Creatinine 0.7 0.6-1.3 mg/dl Bedside Glucose (other) 85 70-99 mg/dl Bedside Ionized Calcium (Leilani) 1.15 1.12-1.32 mmol/l Impression Assessment and Plan The patient is a 78 year old female with a past medical history of a Chronic Type B Aortic Dissection, CAD s/p Cardiac Cath in the 80's, HTN, Paroxysmal SVT , HLD, OA, History of Breast Cancer with last bone scan in 2013, GERD, and recent SBO in December 2017 that presents to the ED with a > 24 hour history of chest discomfort Chest Pain with History of Chronic Type B Aortic Dissection and CAD - EKG: New RBBB compared to last EKG in 2011 + Right Anterior Fascicular Block - CTA Chest: No acute cadiopulmonary abnormalities, No acute changes in aortic dissection - NTG PRN with CP - Trop q6h - Continue home Aspirin, Atenolol, and Statin - Cardiology Consult - ECHO ordered - Last Echo 04/2017: EF 60-65%, Normal Left Ventricular size and systolic function, no regional wall abnormalities, Type 1 diastolic dysfunction, Mild aortic regurg, No significant change from 2013 - MRA Chest 05/2018: 1. No change in the appearance of the short segment dissection in the distal descending thoracic aorta extending to the origin of the super mesenteric artery. 2. Slight interval increase in size of ectasia of the ascending aorta, which measures up to 3.6 cm in diameter, previously 3.4 cm. - Event Monitor in 2014 : Paroxysmal SVT - Admit Telemetry CAD/ HTN/ History of SVT/ HLD - Continue home Atenolol, Verapamil, Aspirin, and Simvastatin GERD - Protonix 40mg IV Daily OA - Hold home Naproxen DVT - SCDs Code Status - Full Resuscitation Resuscitation Status Full Code VTE Prophylaxis Will order VTE Prophylaxis: Yes Resident Tracking Resident Involvement: Resident Care Provided Care Provided: Adult Hospital Medicine History Patient seen and examined, chart reviewed, case discussed with Dr. Matthew and I agree with his assessment and plan as documented above. Briefly, patient is a 78yo female with history of nonobstructive CAD, chronic Type B aortic dissection stable on surveillance, HTN presenting with one day of severe substernal chest pressure. Patient was seen by Cardiology yesterday and found to be hypertensive, Atenolol increased and Nitro refilled. CP persisted, associated with mild SOB and palpitations. Pain relieved with Nitro. On physical exam patient is afebrile, hypertensive on arrival at 194/80 which improved to 149/79, HR 63, RR 20 and 97% on room air. BP 157/86 in RUE and 161/ 77 in LUE General: nontoxic in appearance, NAD Skin: warm, dry, intact HEENT: MMM, no JVD, neck supple, no bruits Heart: +S1/S2, regular, no m/r/g Lungs: CTA bilaterally, no rales/rhonchi/wheezes Abd: +BS, soft, mild tenderness in RUQ and epigastric area Ext: warm, well perfused, no clubbing/cyanosis or edema Labs and images reviewed. CT with no progression of dissection or PE. Troponin x 1 negative. EKG with bifascicular block - RBBB + LAFB, MZ=760, QRS= 134, BHz=260 Assessment/Plan: Observation to telemetry for chest pain, rule out ID Trend cardiac enzymes and EKGs Check 2D echocardiogram Cardiology consultation, appreciate assistance with this case Further ischemic workup/stress testing at discretion of day team
[2018-05-26 20:30] VITALS: BP 149/100; PULSE 81; TEMP 36.5; O2SAT 97
[2018-05-26] MEDS ORDERED: IV FLUIDS COMPLETED PRN (20:30)
[2018-05-26] MEDS: BACITRACIN OINT 15 GM TUBE EXT SCH (21:00)
[2018-05-26] MEDS ORDERED: SIMVASTATIN 20 MG TAB PO SCH (21:00)
[2018-05-26] MEDS ORDERED: POTASSIUM CHLORIDE 10 MEQ TABCR PO STA (21:11)
[2018-05-26] MEDS: SODIUM CHLORIDE 0.9% 1000ML 1,000 ML IV SCH (21:22)
[2018-05-26 21:33] LABS: PHOSPHORUS 2.7 mg/dl (2.5-4.9)
[2018-05-27 00:09] VITALS: BP 138/68; PULSE 58; TEMP 36.8; O2SAT 98
[2018-05-27 03:11] VITALS: BP 124/71; PULSE 60; TEMP 36.7; O2SAT 93
[2018-05-27 08:00] VITALS: O2SAT 93
[2018-05-27] MEDS: BACITRACIN OINT 15 GM TUBE EXT SCH (08:17)
[2018-05-27 08:18] VITALS: BP 157/81; PULSE 60; TEMP 36.6; O2SAT 93
[2018-05-27] MEDS ORDERED: MULTIVITAMIN TAB PO SCH (09:00)
[2018-05-27] MEDS ORDERED: VERAPAMIL HCL 180 MG TABCR PO SCH (09:00)
[2018-05-27] MEDS ORDERED: MAGNESIUM OXIDE 400 MG TAB PO SCH (09:00)
[2018-05-27] MEDS ORDERED: ASPIRIN 81 MG ECTAB PO SCH (09:00)
[2018-05-27] MEDS ORDERED: LORATADINE 10 MG TAB PO SCH (09:00)
[2018-05-27] MEDS: SODIUM CHLORIDE 0.9% 1000ML 1,000 ML IV SCH (10:01)
--- NOTE | 2018-05-27 10:32 | ECHOCARDIOGRAM REPORT ---
*NOTICE TO RECEIVING DEMOCRAT AGENCY This information is strictly Confidential and protected under [place] law. [place] law prohibits you from making any further disclosure of this information unless further disclosure is expressly permitted by the written consent of the person to whom it pertains or is authorized by law. A general authorization for the release of medical or other information is not sufficient for this purpose. Hospital accepts no responsibility if the information is made available to any other person, INCLUDING THE PATIENT. Interpretation Summary * Name: VEGA SMITH Study Date: 05/27/2018 06:26 AM BP: 124/71 mmHg * Patient Location: .2E\S\E209\S\1 HR: 63 * : 1940 (M/d/yyy) Gender: Female Height: 64 in * Age: 78 yrs Ethnicity: CA Weight: 131 lb * Ordering Physician: Alexandr Matthew * Referring Physician: Jn Cordero * Performed By: Izabella Sloan RDCS * * Reason For Study: CHEST PAIN * BSA: 1.6 m2 * -- Conclusions -- * 1. Normal LV size. Borderline concentric LVH. * 2. LVEF 60-65%. No regional wall motion abnormalities. * 3. Normal RV size and function. * 4. Mild aortic regurgitation. * 5. Normal estimated RA and PA pressures. * 6. Grade II diastolic dysfunction. Procedure Details * A complete two-dimensional transthoracic echocardiogram was performed (2D, M-mode, Doppler and color flow Doppler). Left Ventricle * The left ventricle is grossly normal size. * The basal septum is thickened and angulated consistent with sigmoid septum. * There is borderline concentric left ventricular hypertrophy. * Ejection Fraction = 60-65%. * No regional wall motion abnormalities noted. Right Ventricle * The right ventricle is grossly normal size. * The right ventricular systolic function is normal as assessed by tricuspid annular plane systolic excursion (TAPSE) (normal >1.5 cm). Atria * Borderline left atrial enlargement. * Borderline right atrial enlargement. * No ASD detected; PFO is not assessed. Mitral Valve * The mitral valve is grossly normal. * There is no mitral valve stenosis. * There is trace mitral regurgitation. Tricuspid Valve * There is trace tricuspid regurgitation. * Right ventricular systolic pressure is normal. Aortic Valve * The aortic valve opens well. * The aortic valve is trileaflet. * No hemodynamically significant valvular aortic stenosis. * Mild aortic regurgitation. Pulmonic Valve * The pulmonary valve is inadequately visualized, but the Doppler data is adequate for interpretation. * Pulmonic stenosis is absent. * There is no significant pulmonary regurgitation. Great Vessels * The aortic root and proximal ascending aorta are normal sized. Pericardium/Pleural * There is no pericardial effusion. Great Vessels * Normal inferior vena cava size and collapsability with sniff indicates a normal right atrial pressure of 3 mmHg Left Ventricular Diastolic Function * Diastolic dysfunction, Grade II (pseudonormalization pattern). MMode 2D Measurements and Calculations IVSd 1.1 cm IVSs 1.3 cm LVIDd 3.7 cm LVIDs 2.3 cm LVPWd 1.2 cm LVPWs 1.5 cm IVS/LVPW 0.89 FS 37.6 % EDV(Teich) 58.2 ml ESV(Teich) 18.3 ml EF(Teich) 68.5 % EDV(cubed) 50.8 ml ESV(cubed) 12.3 ml EF(cubed) 75.7 % % IVS thick 19.7 % % LVPW thick 23.2 % LV mass(C)d 132.7 grams LV mass(C)dI 81.2 grams/m\S\2 LV mass(C)s 96.2 grams LV mass(C)sI 58.9 grams/m\S\2 SV(Teich) 39.9 ml SI(Teich) 24.4 ml/m\S\2 SV(cubed) 38.4 ml SI(cubed) 23.5 ml/m\S\2 Ao root diam 3.0 cm Ao root area 6.9 cm\S\2 LA dimension 2.9 cm LA/Ao 0.97 LVAd ap4 26.3 cm\S\2 LVLd ap4 8.1 cm EDV(MOD-sp4) 70.2 ml EDV(sp4-el) 72.4 ml LVAs ap4 14.0 cm\S\2 LVLs ap4 6.8 cm ESV(MOD-sp4) 26.8 ml ESV(sp4-el) 24.6 ml EF(MOD-sp4) 61.9 % EF(sp4-el) 66.1 % LVAd ap2 20.6 cm\S\2 LVLd ap2 7.2 cm EDV(MOD-sp2) 47.4 ml EDV(sp2-el) 50.4 ml LVAs ap2 11.3 cm\S\2 LVLs ap2 6.3 cm ESV(MOD-sp2) 18.4 ml ESV(sp2-el) 17.1 ml EF(MOD-sp2) 61.3 % EF(sp2-el) 66.0 % LVLd %diff -13.07 % EDV(MOD-bp) 60.7 ml LVLs %diff -7.52 % ESV(MOD-bp) 22.9 ml EF(MOD-bp) 62.4 % SV(MOD-sp4) 43.4 ml SI(MOD-sp4) 26.6 ml/m\S\2 SV(MOD-sp2) 29.0 ml SI(MOD-sp2) 17.8 ml/m\S\2 SV(MOD-bp) 37.9 ml SI(MOD-bp) 23.2 ml/m\S\2 SV(sp4-el) 47.8 ml SI(sp4-el) 29.3 ml/m\S\2 SV(sp2-el) 33.3 ml SI(sp2-el) 20.4 ml/m\S\2 Doppler Measurements and Calculations MV E max keysha 105.7 cm/sec MV A max keysha 93.3 cm/sec MV E/A 1.1 MV dec time 0.25 sec Ao V2 max 171.7 cm/sec Ao max PG 11.8 mmHg Ao max PG (full) 2.3 mmHg AI max keysha 415.9 cm/sec AI max PG 69.2 mmHg AI dec slope 166.3 cm/sec\S\2 AI P1/2t 732.3 msec LV V1 max PG 9.5 mmHg LV V1 max 154.2 cm/sec TR max keysha 224.2 cm/sec
--- NOTE | 2018-05-27 10:34 | Discharge Instructions ---
Discharge Instructions Date of Service May 27, 2018. Admission Reason for Admission: Chest Pain, History Of Dissection Discharge Discharge Diagnosis / Problem: Chest pain Discharge Goals Goal(s): Decrease discomfort, Improve function, Improve disease control Activity Recommendations Activity Limitations: resume your previous activity . Instructions / Follow-Up Instructions / Follow-Up You were admitted to [facility] due to chest pain. You had a CT scan of your chest, which did not show any blood clots in your lungs, and looked normal. Your troponin (enzyme that measures damage to your heart) was normal, and your EKG ( electrical tracing of your heart) did not show any evidence of damage to your heart. Your blood pressure was elevated when you came in to the hospital, but did improve prior to discharge. We recommend you continue taking the increased dose of atenolol (25mg daily) as prescribed by Dr. Cordero. If you experience any worsening chest pain, palpitations, shortness of breath, or feel very warm & sweaty, please seek medical attention. Current Hospital Diet Patient's current hospital diet: AHA Diet (Heart Healthy) Discharge Diet Recommended Diet: AHA Diet (Heart Healthy) Pending Studies Studies pending at discharge: no Laboratory Results Lipid Panel Test 05/27/18 05:41 Range/Units Triglycerides Level 103 0-150 mg/dl Cholesterol Level 102 0-200 mg/dl HDL Cholesterol 64 mg/dl Cholesterol/HDL Ratio 1.6 LDL Cholesterol, Calculated 17 mg/dl Medical Emergencies . Who to Call and When: Medical Emergencies: If at any time you feel your situation is an emergency, please call 911 immediately. . Non-Emergent Contact Non-Emergency issues call your: Primary Care Provider . . "Provider Documentation" section prepared by Larry Jara. .
[2018-05-27 10:51] VITALS: BP 157/81; PULSE 60; TEMP 36.6; O2SAT 93
--- NOTE | 2018-05-27 10:56 | Discharge Summary ---
Discharge Summary Date of Service May 27, 2018. Discharge Summary Admission Date: May 26, 2018 at 19:44 Discharge Date: May 27, 2018 Discharge Disposition: Home Principal Diagnosis: Chest pain Problems/Secondary Diagnoses: 1) CAD 2) HTN 3) Chronic Type B Aortic Dissection 4) Hyperlipidemia 5) Hx of breast cancer 6) OA Immunizations: Have You Had Influenza Vaccine: Yes Influenza Vaccine Date: Jul 14, 2011 History of Tetanus Vaccine?: Yes Tetanus Immunization Date: Jul 11, 2005 History of Pneumococcal: Yes Pneumococcal Date: Jul 11, 2006 History of Hepatitis B Vaccine: Yes Hepatitis Immunization Date: Jul 11, 2010 Procedures: (CHEST FOR PE) ANGIO WITH CT DOSE: 202.77 mGy.cm HISTORY: Chest pain dyspnea TECHNIQUE: Multiaxial CT images of the chest were performed following the intravenous administration of contrast to evaluate the pulmonary arteries. Maximal intensity projection images were also obtained. A dose lowering technique was utilized adhering to the principles of ALARA. COMPARISON STUDY: 02/17/2017 FINDINGS: There is a normal caliber thoracic aorta with no evidence for dissection. There is no evidence for pulmonary embolus. No pleural effusions. No pneumothorax. The liver and spleen are unremarkable. No mediastinal or hilar lymphadenopathy. The central airways are patent. The lungs are remarkable for mild bibasilar interstitial change. IMPRESSION: No evidence for pulmonary embolus. Mild bibasilar interstitial pneumonitis.. Minimal pulmonary micronodularity stable from the prior 2 studies. CHEST ONE VIEW PORTABLE CLINICAL HISTORY: CHEST PAIN dyspnea COMPARISON STUDY: 12/18/2017 FINDINGS: The bones soft tissues and hemidiaphragms are normal. The cardiomediastinal silhouette is normal. The lungs are clear. The pulmonary vasculature is normal. IMPRESSION: Negative chest. Consultations: Cardiology Medication Reconciliation Continued Medications: Acetaminophen Tab (Tylenol) 325 Mg Tab 325 MG PO Q6H PRN for Headache or Pain, TAB Aspirin (Aspirin Ec) 81 Mg Tab 81 MG PO DAILY Atenolol (Tenormin) 25 Mg Tab 25 MG PO DAILY Cholecalciferol (Vitamin D) 2,000 Unit Tab 2000 UNITS PO DAILY Doxylamine Succinate (Sleep) (Ra Sleep Aid) 25 Mg Tab 25 MG PO HS Loratadine (Claritin) 10 Mg Tab 10 MG PO DAILY, 0 Refills Magnesium Oxide (Mag-Ox) 400 Mg Tab 400 MG PO DAILY, TAB Multivitamin (Multivitamin) Tab 1 TAB PO DAILY, TAB Mupirocin (Bactroban 2% Oint) 66 Appln/22 Gm Oint 1 APPLN EXT BID, TUBE Naproxen Sodium (Aleve) 220 Mg Tab 220 MG PO BID, TAB Nitroglycerin (Nitrostat) 0.3 Mg Tab 0.3 MG UT PRN Ocuvite Preservision (Ocuvite Preservision) 1 Tab Tab 1 TAB PO DAILY, TAB Omeprazole (Prilosec) 20 Mg Capcr 20 MG PO DAILY Simvastatin (Zocor) 10 Mg Tab 20 MG PO QPM Verapamil Hcl (Calan Sr Ext Rel) 180 Mg Tab 180 MG PO DAILY, TAB Discharge Exam Ms. Stroud reports her chest pain has reduced to a 2/10 in severity. She denies pleuritic nature of the pain. She denies fever, chills, cough. She states the pain does not radiate, and is no longer associated with SOB or palpitations. Review of Systems: Constitutional: No fever, No chills Respiratory: No shortness of breath Cardiovascular: + chest pain Abdomen: No pain, No nausea, No vomiting Physical Exam: General Appearance: WD/WN, no apparent distress Respiratory/Chest: lungs clear, normal breath sounds, no respiratory distress, no accessory muscle use Cardiovascular: regular rate, rhythm, no edema, no murmur, normal peripheral pulses Abdomen / GI: non tender, soft, no organomegaly Extremities: normal inspection, no calf tenderness Hospital Course Ms. Stroud is a 78 year old female with a past medical history of a Chronic Type B Aortic Dissection, CAD s/p Cardiac Cath in the 80's, HTN, Paroxysmal SVT , HLD, OA, History of Breast Cancer with last bone scan in 2013, GERD, and recent SBO in December 2017 who presented to the ED with a > 24 hour history of chest discomfort Chest Pain with History of Chronic Type B Aortic Dissection and CAD - EKG: no acute ischemic change - ECHO: no regional wall motion abnormalities. Normal EF. - CTA Chest: No acute cardiopulmonary abnormalities - trop -ve x2 - cholesterol panel excellent - Continue home Aspirin and Statin - she was seen by cardiology -> recommended she continue her increased dose of atenolol (25mg daily) given elevations in BP in office and on admission - last MRA Chest 05/2018: 1. No change in the appearance of the short segment dissection in the distal descending thoracic aorta extending to the origin of the super mesenteric artery. 2. Slight interval increase in size of ectasia of the ascending aorta, which measures up to 3.6 cm in diameter, previously 3.4 cm. Resident Physician Supervision Note: I was present with the resident physician during the history and exam. I discussed the case with the resident and agree with the findings and plan as documented in the note. I also discussed the case with cardiology by telephone prior to the patient's discharge. Upon examination, the patient is seated in her bed eating breakfast. She has no complaints at present and is eager for discharge. We reviewed the results of her testing as well as the cardiology recommendations. Her blood pressure was improved this morning. Her atenolol was returned to her previous dosing and we discussed that this will need to be followed as an outpatient. They will monitor her blood pressure at home; I encouraged him to take their home blood pressure unit with them to the next office visit so that it can be calibrated to the office readings. Documented By: Daniel Perez Total Time Spent: Less than 30 minutes This includes examination of the patient, discharge planning, medication reconciliation, and communication with other providers. Discharge Instructions Please refer to the electronic Patient Visit Report (Discharge Instructions) for additional information. Additional Copies To RV. Farley MD Resident Tracking Resident Involvement: Resident Care Provided Care Provided: Adult Hospital Medicine
[2018-05-27] MEDS ORDERED: PANTOprazole INJ 40 MG in SYRINGE 0 ML IV SCH (11:00)
--- NOTE | 2018-05-27 14:57 | Cardiology Consultation ---
Cardiology Consultation Date of Consultation: May 27, 2018. Requesting Physician: Dr. Matthew Attending Physician: Dr. Perez Reason for Consultation: Chest pain Pt evaluation today including: conversation w/ patient, conversation w/ family (), physical exam, chart review, lab review, review of studies, review of inpatient medication list, conversation w/ attending History of Present Illness Mrs. Stroud is a pleasant 78-year-old female a history significant for type B aortic dissection (mid ), CAD status post VA, hypertension, dyslipidemia, peptic ulcer disease, and breast cancer status post bilateral mastectomy and XRT. She was seen in the office on 05/25/2018 and asked for a refill for nitroglycerin as hers had . She then went home and experienced chest discomfort. She states she actually had in the office however she had not mentioned chest discomfort at that time. Now she admits that she has had chest discomfort for at least 3 days continuously. The severity has waxed and waned however. Yesterday she called the office as her nitroglycerin was not available at the pharmacy, although it was sent electronically on Friday. She had noted that her blood pressure was elevated, as it was in the office. In the office atenolol was increased to her prior dose. She had not yet started taking the higher dose however. The chest discomfort became more severe. She was prompted to come to the emergency department for further evaluation. She had troponin level in the ER and this was negative. Emergency department physician recommended that she be admitted due to hypertension and chest discomfort for a rule out evaluation. CT scan of the chest demonstrated no acute finding to describe her chest pain. The chest discomfort is a right-sided pain described as a stabbing sensation. There could be associated dyspnea with exertion. At times the chest discomfort radiated to her back. She continues to have chest pain, 3/10 but it was 10/10 yesterday. She admits that she was quite up tight about her hypertension and the fact that nitroglycerin was not available at her typical pharmacy. She did take nitroglycerin which helped improve her pain. There is no worsening of the pain with exertion. She admits that the pain can be pleuritic in nature. She denies syncope, near-syncope, palpitations, edema, or bleeding. Review of systems: As above. Review of systems otherwise negative/ unremarkable. Past Medical/Surgical History 1. Allergic rhinitis (J30.9) 2. Aortic regurgitation (I35.1) 3. Arthralgia of multiple sites (M25.50) 4. Asthma (J45.909) 5. Balance disorder (R26.89) 6. Balance problems (R26.89) 7. Benign essential tremor (G25.0) 8. BMI 23.0-23.9, adult (Z68.23) 9. Bowel obstruction (K56.609) 10. CAD in [place] artery (I25.10) 11. Carpal tunnel syndrome (G56.00) 12. Cerebral microvascular disease (I67.9) 13. Chronic headaches (R51) 14. Chronic thoracic aortic dissection (I71.01) 15. Concussion (S06.0X9A) 16. Constipation (K59.00) 17. Diverticulosis of colon (K57.30) 18. Dizziness (R42) 19. Dyslipidemia (E78.5) 20. Esophageal reflux (K21.9) 21. Fall, accidental (W19.XXXA) 22. Gait instability (R26.81) 23. Generalized osteoarthritis of multiple sites (M15.9) 24. History of malignant neoplasm of breast (Z85.3) 25. Hypertension (I10) 26. Hypokalemia (E87.6) 27. Hypomagnesemia (E83.42) 28. Insomnia (G47.00) 29. Irritable bowel syndrome (K58.9) 30. Lung nodule (R91.1) 31. Mild cognitive impairment (G31.84) 32. Monoclonal gammopathy of undetermined significance (D47.2) 33. Nasal bone fracture (S02.2XXA) 34. Neck pain (M54.2) 35. Need for pneumococcal vaccination (Z23) 36. Need for prophylactic antibiotic (Z79.2) 37. Neuropathy, peripheral (G62.9) 38. Osteopenia (M85.80) 39. Pain of right shoulder region (M25.511) 40. Paroxysmal SVT (supraventricular tachycardia) (I47.1) 41. Recurrent falls (R29.6) 42. S/P mastectomy, bilateral (Z90.13) 43. Sensorineural hearing loss (SNHL) of both ears (H90.3) 44. Signs and symptoms involving cognition (R41.89) 45. Tinnitus of right ear (H93.11) 46. Travel advice encounter (Z71.89) 47. 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 Vertigo (R42) 49. Vitamin B12 deficiency (E53.8) 50. Vitamin D deficiency (E55.9) Family History Diabetes mellitus FHx: cancer FHx: gallbladder disease FHx: heart disease Hypertension Brother with CABG. Mother with breast cancer. Father with prostate cancer, TIAs , and dementia. Social History Denies tobacco or drug abuse. She drinks wine occasionally, especially on the weekends. She is . They have 3 living daughters, and one son from an automobile accident. 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 Her accompanies her today. Allergies Coded Allergies: Iodine (Verified Allergy, Intermediate, RASH TO TOPICAL IODINE, 12/16/17) Adhesives (Verified Allergy, Unknown, RED SKIN, 12/16/17) Penicillins (Verified Allergy, Unknown, 12/16/17) Sulfa Antibiotics (Verified Allergy, Unknown, ., 05/26/18) Chlorhexidine (Verified Adverse Reaction, Intermediate, SEVERE BURNING WITH CHG WIPES, 12/16/17) Medications Reported Home Medications Medications Dose Route/Sig Max Daily Dose Days Date Category Tylenol (Acetaminophen) 325 Mg Tab 325 Mg PO Q6H PRN 05/26/18 Reported Bactroban 2% Oint (Mupirocin) 66 Appln/22 Gm Oint 1 Appln EXT BID 05/26/18 Reported Ocuvite Preservision (Multivitamins/Minerals) 1 Tab Tab 1 Tab PO DAILY 05/26/18 Reported Multivitamin (Multivitamins) Tab 1 Tab PO DAILY 05/26/18 Reported Mag-Ox (Magnesium Oxide) 400 Mg Tab 400 Mg PO DAILY 05/26/18 Reported Vitamin D (Cholecalciferol) 2,000 Unit Tab 2,000 Units PO DAILY 12/16/17 Reported Calan Sr Ext Rel (Verapamil Hcl) 180 Mg Tab 180 Mg PO DAILY 12/16/17 Reported Aspirin Ec (Aspirin) 81 Mg Tab 81 Mg PO DAILY 12/16/17 Reported Ra Sleep Aid (Doxylamine Succinate (Sleep)) 25 Mg Tab 25 Mg PO HS 06/18/17 Reported Aleve (Naproxen Sodium) 220 Mg Tab 220 Mg PO BID 02/27/16 Reported Nitrostat (Nitroglycerin) 0.3 Mg Tab 0.3 Mg UT PRN 06/27/11 Reported Tenormin (Atenolol) 25 Mg Tab 25 Mg PO DAILY 11/30/08 Reported Prilosec (Omeprazole) 20 Mg Capcr 20 Mg PO DAILY 11/30/08 Reported Claritin (Loratadine) 10 Mg Tab 10 Mg PO DAILY 11/30/08 Reported Zocor (Simvastatin) 10 Mg Tab 20 Mg PO QPM 11/30/08 Reported Physical Exam Vital Signs Past 12 Hours Date Time Temp Pulse Resp B/P (MAP) Pulse Ox O2 Delivery O2 Flow Rate FiO2 05/27/18 10:51 36.6 60 16 93 Room Air 05/27/18 08:18 36.6 60 16 157/81 (106) 93 Room Air 05/27/18 08:00 93 Room Air 05/27/18 03:11 36.7 60 18 124/71 (88) 93 Room Air Gen.: No acute distress. Alert and oriented. HEENT: Anicteric sclera. Neck: No JVD. No bruits. Normal carotid upstrokes bilaterally. Cardiac: PMI was nonpalpable. No ventricular heave. Regular. No ectopy. Normal S1-S2. 2/6 early peaking systolic ejection murmur best heard at the right upper sternal border. No rubs or gallops. Pulmonary: Clear to auscultation bilaterally without wheezes, rales, or rhonchi. Abdomen: Soft, nontender, nondistended, with normoactive bowel sounds. No bruits noted. Extremities: 2+ radial pulses bilaterally. 2+ posterior tibialis pulses bilaterally. No edema or cyanosis. Psychiatric: Affect appears appropriate. Chest: Although her right-sided chest is mildly tender, it does not reproduce her symptoms as described above. No rash. Data Laboratory Results: Last 24 Hours Test 05/26/18 17:56 05/26/18 18:04 05/26/18 18:18 05/27/18 05:41 White Blood Count 6.48 K/uL Red Blood Count 4.43 M/uL Hemoglobin 14.5 g/dL Hematocrit 42.7 % Mean Corpuscular Volume 96.4 fL Mean Corpuscular Hemoglobin 32.7 pg Mean Corpuscular Hemoglobin Concent 34.0 g/dl Platelet Count 148 K/uL Mean Platelet Volume 9.9 fL Neutrophils (%) (Auto) 60.2 % Lymphocytes (%) (Auto) 26.2 % Monocytes (%) (Auto) 9.7 % Eosinophils (%) (Auto) 3.2 % Basophils (%) (Auto) 0.5 % Neutrophils # (Auto) 3.90 K/uL Lymphocytes # (Auto) 1.70 K/uL Monocytes # (Auto) 0.63 K/uL Eosinophils # (Auto) 0.21 K/uL Basophils # (Auto) 0.03 K/uL RDW Standard Deviation 45.9 fL RDW Coefficient of Variation 13.1 % Immature Granulocyte % (Auto) 0.2 % Immature Granulocyte # (Auto) 0.01 K/uL Sodium Level 135 mmol/L Potassium Level 3.2 mmol/L Chloride Level 99 mmol/L Carbon Dioxide Level 31 mmol/L Anion Gap 5.0 mmol/L 18.0 mmol/L Blood Urea Nitrogen 20 mg/dl Creatinine 0.69 mg/dl Est Creatinine Clear Calc Drug Dose 58.1 ml/min Estimated GFR () 96.6 Estimated GFR (Non- 83.4 BUN/Creatinine Ratio 29.2 Random Glucose 83 mg/dl Calcium Level 9.1 mg/dl Phosphorus Level 2.7 mg/dl Magnesium Level 2.0 mg/dl Total Bilirubin 0.4 mg/dl Direct Bilirubin 0.2 mg/dl Aspartate Amino Transf (AST/SGOT) 29 U/L Alanine Aminotransferase (ALT/SGPT) 29 U/L Alkaline Phosphatase 106 U/L Troponin I < 0.015 ng/ml < 0.015 ng/ml Total Protein 8.1 gm/dl Albumin 4.1 gm/dl Amylase Level 122 U/L Lipase 257 U/L Bedside Troponin I < 0.030 ng/ml Bedside Hemoglobin 14.6 g/dl Bedside Hematocrit 43 % Bedside Sodium 139 mEq/L Bedside Potassium 3.3 mEq/L Bedside Chloride 95 mEq/L Bedside Total CO2 30 mEq/l Bedside Blood Urea Nitrogen 22 mg/dl Bedside Creatinine 0.7 mg/dl Bedside Glucose (other) 85 mg/dl Bedside Ionized Calcium ([place]) 1.15 mmol/l Triglycerides Level 103 mg/dl Cholesterol Level 102 mg/dl HDL Cholesterol 64 mg/dl LDL Cholesterol, Calculated 17 mg/dl VLDL Cholesterol, Calculated 21 mg/dl Cholesterol/HDL Ratio 1.6 ECG personally reviewed: Sinus bradycardia with RBBB and LAFB. Telemetry personally reviewed: No arrhythmia. Echocardiogram: Echo images personally reviewed. On preliminary review, LV systolic function is normal. Normal wall motion. Mild AI. For report to follow. CTA 05/26/2018: No evidence for pulmonary embolus. Mild bibasilar interstitial pneumonitis. Minimal pulmonary micronodularity stable from the prior 2 studies. Assessment & Plan ASSESSMENT/PLAN: 1. Noncardiac chest pain: Her chest pain is not consistent with ischemic heart disease. It is right-sided and despite 3 days of pain, negative cardiac enzymes , with unremarkable ECG for ischemic changes. No regional wall motion abnormalities. Workup as per primary service. CT angiogram without acute finding to cause her pain. There was consideration for pneumonitis, which will be deferred to primary service. 2. Hypertension: Blood pressure has not been adequately treated. Atenolol was increased as an outpatient to 25 mg daily, which was tolerated in the past. She had not yet started taking that dose. If blood pressure remains elevated , consider NADYA-inhibitor or low-dose diuretic therapy. This was discussed with Dr. Williamson of the primary hospitalist service. 3. Aortic regurgitation: Non severe. This can be followed up as an outpatient. 4. Chronic type B aortic dissection: Stable findings on MRA earlier this month. No acute dissection as per Radiology report of CT angiogram. Blood pressure control very important. Recommendations as above. She is well beta blocked. 5. Disposition: No further testing recommended from a cardiology perspective other than repeating troponin level this morning, which was done and has been resulted as negative. Patient care discussed with Dr. Williamson of the primary hospitalist service. 40 minutes spent, with greater than 50% time spent counseling patient, coordinating care, and reviewing studies. Thank you for allowing me to participate in the care of your patient. Please call for any other questions or concerns. Sincerely, Morro Cordero M.D.
== END 2018-05-27 11:17 | disposition home or self-care (01) ==
LOC: C.EDB 17:40 → C.2E 19:44 → ENRESERV 19:48
PROVIDERS: ADMIT Student in an Organized Health Care Education/Training Program; ATTEND Family Medicine
DX: R07.89 Other chest pain (principal); I25.10 Atherosclerotic heart disease of native coronary artery without angina pectoris; I10 Essential (primary) hypertension; E78.5 Hyperlipidemia, unspecified; J30.9 Allergic rhinitis, unspecified; M19.90 Unspecified osteoarthritis, unspecified site; J45.909 Unspecified asthma, uncomplicated; K58.9 Irritable bowel syndrome, unspecified; G62.9 Polyneuropathy, unspecified; E53.8 Deficiency of other specified B group vitamins; E55.9 Vitamin D deficiency, unspecified; I25.2 Old myocardial infarction; Z90.13 Acquired absence of bilateral breasts and nipples; Z85.3 Personal history of malignant neoplasm of breast; Z88.0 Allergy status to penicillin; Z88.2 Allergy status to sulfonamides; Z88.8 Allergy status to other drugs, medicaments and biological substances; Z79.82 Long term (current) use of aspirin

== ENCOUNTER 2020-06-01 10:10 | Inpatient (IN) ==
--- NOTE | 2020-05-03 11:03 | PAT Medication Instructions ---
Medication Instructions Date of Service May 03, 2020 Home Medications Medication Instructions Recorded simvastatin 20 mg tablet 20 mg PO HS #90 tab 09/16/19 donepezil 5 mg tablet 5 mg PO HS #90 tab 04/26/20 nitroglycerin 0.4 mg sublingual tablet 0.4 mg SL Q5M PRN cholecalciferol (vitamin D3) 125 mcg (5,000 unit) capsule 5,000 units PO 1200 simvastatin 20 mg tablet 20 mg PO HS vit C 250 mg-E 200 unit-zinc 40 mg-copper 1 [id number] capsule 1 tab PO BID donepezil 5 mg tablet 5 mg PO HS aspirin [Aspir-81] 81 mg PO QAM atenolol 25 mg PO 1200 calcium carbonate-vitamin D3 [Calcium 600 + D(3)] 1 tab PO 1200 loratadine 10 mg PO 1200 meloxicam 15 mg PO 1200 multivitamin 1 tab PO 1200 naproxen sodium [Aleve] 220 mg PO BID potassium gluconate 595 mg PO QAM verapamil 180 mg PO 1200 Continue as directed nitroglycerin 0.4 mg sublingual tablet 0.4 mg SL Q5M PRN (if needed) ASK your prescriber and surgeon aspirin [Aspir-81] 81 mg PO QAM STOP taking 2 weeks before surgery (or as soon as possible if surgery is within 2 weeks) vit C 250 mg-E 200 unit-zinc 40 mg-copper 1 [id number] capsule 1 tab PO BID DO NOT take the morning of surgery cholecalciferol (vitamin D3) 125 mcg (5,000 unit) capsule 5,000 units PO 1200 calcium carbonate-vitamin D3 [Calcium 600 + D(3)] 1 tab PO 1200 loratadine 10 mg PO 1200 multivitamin 1 tab PO 1200 potassium gluconate 595 mg PO QAM verapamil 180 mg PO 1200 Take morning of surgery With a small sip of water, OTHERWISE NOTHING TO EAT OR DRINK AFTER MIDNIGHT: atenolol 25 mg PO 1200 Take evening before surgery simvastatin 20 mg tablet 20 mg PO HS donepezil 5 mg tablet 5 mg PO HS Other Notes If you have any questions please call us at [phone] or [phone] or [phone] or [phone]
--- NOTE | 2020-05-04 10:34 | Anesthesiology Consultation ---
Date of Service May 04, 2020 Assessment & Plan (1) Encounter for pre-operative examination: - Awaiting surgeon-ordered PCP clearance [place] 05/08 [place] [place] - Hx Chronic type B aortic dissection under surveillance by cardiology (patient reports that she does not wish to have surgical intervention of this therefore cardiology was considering to forego future imaging. Awaiting cardiology response ([facility] [place] - Patient goes by "Missy" Per PAT assessment on 05/04: Travel screen negative. No known COVID-19 positive contacts. No current COVID-19 related symptoms. Patient scheduled for preop protocol COVID-19 testing 05/29 (U). Awaiting results. - Cardiology office visit: 12/08/19: "Chronic type B Aortic Dissection: Stable findings on MRA in May of 2018. She remains asymptomatic in regards to her dissection. Blood pressure is elevated. We discussed importance of a low-sodium diet. Continue beta-nehal. Avoid heavy lifting, in which she has to strain and perform a Valsalva maneuver. Cardiovascular exercise acceptable. Imaging has been performed every 2 years recently. We discussed this once again. 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 She would be due for imaging in approximately 6 months. She would like to hold off further imaging for now and would like to discuss in the future.. Paroxysmal SVT: This was noted on event monitor. Palpitations did not correlate with SVT. Palpitations occurred today in the office with heart rate near 60 bpm. She was reassured. Continue beta-nehal." - Hx chlorhexidine wipes reaction: severe burning. No CHG wipes given for preop d/t hx Chart Review Chart Review: Patient seen in Pre Admission Testing Teaching & Discussion Pre-Anesthesia Teaching/Discussion Notes: Instructed NPO after midnight before surgery,except medications with 15 cc of water. Medication instructions provided according to the PAT guidelines. History Surgery Operation Date: 06/01/20 08:40 Proposed Procedures p Right Total Shoulder Arthroplasty - Dallin Santiago M.D. Height/Weight Height: 5 ft 4 in Weight: 61.6 kg Allergies Allergy/AdvReac Type Severity Reaction Status Date / Time chlorhexidine Allergy Intermediate severe Verified 05/04/20 10:26 burning (with CHG wipes) iodine Allergy Intermediate rash (with Verified 05/04/20 10:26 topical iodine) adhesive Allergy Unknown skin Verified 05/04/20 10:26 redness Penicillins Allergy Unknown Unknown Verified 05/01/20 12:22 Sulfa (Sulfonamide Allergy Unknown Unknown Verified 05/01/20 12:22 Antibiotics) diltiazem AdvReac Unknown dizziness Unverified 05/04/20 10:26 Contrast Media Ready-Box MISC AdvReac Unknown dyspnea Uncoded 05/04/20 10:26 Medications Home Medications Medication Instructions Recorded Confirmed Last Taken nitroglycerin 0.4 mg sublingual 0.4 mg SL Q5M PRN #25 tab 05/18/19 05/01/20 Unknown tablet cholecalciferol (vitamin D3) 125 5,000 units PO 1200 05/31/19 05/01/20 Unknown mcg (5,000 unit) capsule simvastatin 20 mg tablet 20 mg PO HS #90 tab 09/16/19 05/01/20 Unknown vit C 250 mg-E 200 unit-zinc 40 1 tab PO BID 12/08/19 05/01/20 Unknown mg-copper 1 [id number] capsule donepezil 5 mg tablet 5 mg PO HS #90 tab 04/26/20 05/01/20 Unknown aspirin [Aspir-81] 81 mg PO QAM 05/01/20 05/01/20 Unknown atenolol 25 mg PO 1200 05/01/20 05/01/20 Unknown calcium carbonate-vitamin D3 1 tab PO 1200 05/01/20 05/01/20 Unknown [Calcium 600 + D(3)] loratadine 10 mg PO 1200 05/01/20 05/01/20 Unknown meloxicam 15 mg PO 1200 05/01/20 05/01/20 Unknown multivitamin 1 tab PO 1200 05/01/20 05/01/20 Unknown naproxen sodium [Aleve] 220 mg PO BID 05/01/20 05/01/20 Unknown potassium gluconate 595 mg PO QAM 05/01/20 05/01/20 Unknown verapamil 180 mg PO 1200 05/01/20 05/01/20 Unknown Past Medical History Medical History (Updated 05/04/20 @ 12:24 by Zena Alvarez) Benign essential tremor Bifascicular block dating back to at least 2018 per [place] EKG records CAD in [place] artery Chronic thoracic aortic dissection No change in the appearance of the short segment dissection in the distal descending thoracic aorta extending to the origin of the SMA per 05/2018 MRA- under surveillance by cardiology Dyslipidemia Gait instability History of intestinal obstruction remote History of malignant neoplasm of breast s/p XRT History of myocardial infarction 10+ years ago, medical management Hypertension Lung nodule per records/patient unaware Mild cognitive impairment Monoclonal gammopathy of undetermined significance per records/patient unaware Neck pain Neuropathy, peripheral Osteopenia Paroxysmal SVT (supraventricular tachycardia) Sensorineural hearing loss (SNHL) of both ears Sleep apnea per records/patient unaware Past Family History Family History Father Cerebral atherosclerosis Prostate cancer Brother Coronary heart disease Hx of CABG Mother Breast cancer Denies family history of Colon cancer Crohn's disease Past Surgical History Surgical History History of bilateral tubal ligation History of colonoscopy S/P appendectomy S/P cataract surgery BILAT S/P cholecystectomy S/P hysterectomy with oophorectomy S/P mastectomy, bilateral FOR H/O BREAST CANCER> 1993> [facility] S/P tonsillectomy S/P total knee arthroplasty RIGHT Past Anesthesia History No Hx of Anesthesia Complications and No Family Hx of Anesthesia Complications History of PONV No Hx of PONV and No Hx of Motion Sickness Social History Smoking Status: Former smoker Do You Dip or Chew Tobacco: No Smoking End Date: Quit 60 years ago Hx Alcohol Use: Yes Alcohol type: wine alcohol intake frequency: a few times a week Hx Substance Use: No substance use type: does not use Review of Systems Patient denies chest pain, shortness of breath, fever, chills, cough, wheezing, palpitations. Physical Exam Vital Signs VITALS BP 170/77 P 65 TEMP 98.3 SP02 97%RA RESP 18 PHYSICAL Full neck and c-spine range of motion. Full TMJ range of motion. TMD 2.5 finger breaths Mallampati Score 3 Dentition: intact Lungs: clear throughout to auscultation Cardiac: regular rate and rhythm, no murmurs noted Spine: normal Carotid arteries: negative bruit Extremities: no edema Testing Laboratory Results 05/04/20 11:01 05/04/20 11:01 PT 10.3 Seconds (9.0-12.0) 05/04/20 11:01 INR 1.0 (0.9-1.1) 05/04/20 11:01 APTT 24.8 Seconds (21.0-31.0) 05/04/20 11:01 Hemoglobin A1c 4.6 % (4.5-5.6) 05/04/20 11:01 Blood Type O Negative 05/04/20 11:01 Antibody Screen NEGATIVE 05/04/20 11:01 Electrocardiogram Date: 05/04/20 NSR at 64bpm. RBBB. LAFB. *Bifascicular block.* Chest X-Ray Date: 05/04/20 FINDINGS: No pneumothorax. No pleural effusions. The lungs are clear. Mildly tortuous thoracic aorta. The heart is normal in size. Surgical clips within the right axilla are again noted. Prior cholecystectomy. Advanced degenerative changes within the thoracic spine. IMPRESSION: No significant change compared to the prior study. No acute process. Echocardiogram Date: 05/27/18 EF 60-65%. No RWMA. Borderline cLVH. Basal septum is thickened and angulated consistent with sigmoid septum. Borderline LAE/TRUPTI. Mild AR. Grade II DD. Other Testing MRA chest: 05/20/18: No change in the appearance of the short segment dissection in the distal descending thoracic aorta extending to the origin of the SMA. Slight interval increase in ectasia of the ascending aorta (3.6cm).
--- NOTE | 2020-05-04 11:52 | XRay Report ---
XR chest Pre-admission PA/Lat HISTORY: Preop. COMPARISON: Chest 05/26/2018. FINDINGS: No pneumothorax. No pleural effusions. The lungs are clear. Mildly tortuous thoracic aorta. The heart is normal in size. Surgical clips within the right axilla are again noted. Prior cholecyst ectomy. Advanced degenerative changes within the thoracic spine. IMPRESSION: No significant change compared to the prior study. No acute process. ACT 112: Negative or not required by law. Electronically signed by: Keith Cohen M.D. 05/04/2020 11:51 AM
[2020-05-04 12:28] LABS: Basophils # (auto) 0.01 K/uL (0-0.2); Basophils % (auto) 0.2 %; Eosinophils # (auto) 0.12 K/uL (0-0.5); Eosinophils % (auto) 2.4 %; Hemoglobin 13.7 g/dL (12.0-16.0); Lymphocytes # (auto) 1.13 K/uL (1.2-3.4); Lymphocytes % (auto) 22.3 %; Mean Corpuscular Hemoglobin 33.9 pg (25-34); Mean Corpuscular Hgb Conc 33.4 g/dL (32-36); Mean Corpuscular Volume 101.5 fL (80-100); Mean Platelet Volume 9.6 fL (7.4-10.4); Monocytes # (auto) 0.64 K/uL (0.11-0.59); Monocytes % (auto) 12.6 %; Neutrophils # (auto) 3.16 K/uL (1.4-6.5); Neutrophils % (auto) 62.5 %; Platelet Count 145 K/uL (130-400); RDW Coefficient of Variation 13.4 % (11.5-14.5); RDW Standard Deviation 48.2 fL (36.4-46.3); Red Blood Count 4.04 M/uL (4.2-5.4); White Blood Count 5.06 K/uL (4.8-10.8)
[2020-05-04 12:39] LABS: Partial Thromboplastin Ratio 0.9; Partial Thromboplastin Time 24.8 Seconds (21.0-31.0); Prothrombin Time 10.3 Seconds (9.0-12.0)
[2020-05-04 12:41] LABS: Albumin Level 3.6 gm/dl (3.4-5.0); BUN Creatinine Ratio 24.8 (10-20); Creatinine Clr Calc Pharmacy 51.8 ml/min; Est GFR (African American) 86.5; Est GFR (Non-African American) 74.6; Potassium 3.8 mmol/L (3.5-5.1)
[2020-05-04 12:50] LABS: Estimated Average Glucose 85 mg/dl; Hemoglobin A1C 4.6 % (4.5-5.6)
--- NOTE | 2020-05-04 23:12 | Electrocardiogram Report ---
Test Reason : Blood Pressure : / mmHG Vent. Rate : 064 BPM Atrial Rate : 064 BPM P-R Int : 180 ms QRS Dur : 136 ms QT Int : 430 ms P-R-T Axes : 052 -61 028 degrees QTc Int : 443 ms Normal sinus rhythm Right bundle branch block Left anterior fascicular block Bifascicular block Abnormal ECG When compared with ECG of 26-MAY-2018 17:48, QT has lengthened Confirmed by Jn Cordero ([id number]) on 05/04/2020 11:12:16 PM Referred By: Dallin Santiago Confirmed By:Jn Cordero
[2020-05-08 11:41] LABS: Appearance Urine Clear (Clear); Bacteria Urine Automated Negative (Negative); Bilirubin Urine Negative (Negative); Blood Urine Negative (Negative); Cast Urine Automated 0 /lpf (0-5); Color Urine Yellow; Epithelial Cell Urine Auto 0-5 /lpf (0-5); Glucose Urine UA Negative (Negative); Ketones Urine Negative (Negative); Leukocyte Esterase Urine 2+ (Negative); Nitrite Urine Negative (Negative); Protein Urine Negative (Negative); RBC Urine Automated 0-4 /hpf (0-4); Specific Gravity Urine 1.011 (1.000-1.030); Urobilinogen Urine Negative (Negative); WBC Urine Automated >30 /hpf (0-5)
--- NOTE | 2020-05-31 12:50 | History & Physical Report ---
Date of Service May 31, 2020 Assessment & Plan (1) Primary osteoarthritis, right shoulder: She has severe right shoulder primary glenohumeral joint arthritis. I think that she is a candidate for a standard total shoulder arthroplasty since her rotator cuff is intact. We again discussed the difference between standard and reverse total shoulder arthroplasty, and she is in agreement with the plan for a standard. Risks, benefits, and alternatives of surgery were explained in detail. The surgical procedure, as well as postoperative recovery and rehabilitation, was also explained in detail. Risks include bleeding; infection; damage to surrounding structures such as nerves, blood vessels, and tendons that run in the area; persistent pain or stiffness; hardware failure; dislocation; brachial plexus palsy; blood clots; or need for further surgery. The patient understands all of this and wishes to proceed with surgery. Preoperative workup was completed today, and informed consent was obtained. Present on Admission?: Yes Admission and Anticipated Discharge Date Admission Date: 06/01/2020 Anticipated date of discharge: 06/02/20 History of Present Illness Chief Complaint: Right shoulder pain Primary Care Provider: Mitra Jameson MD Ms. Stroud is a 79-year old [id number] female with severe, progressively worsening right shoulder pain for many years. She has had m ultiple injections into her right shoulder, but thinks less than 5. The injections give her minimal benefit of only about a week at this point. This shoulder pain is severely limiting her activities of daily living. It frequently wakes her up. She has had a few falls over the years, but no obvious traumatic injury to the right shoulder that caused severe worsening of her pain or function. Allergies Allergy/AdvReac Type Severity Reaction Status Date / Time chlorhexidine Allergy Intermediate severe Verified 05/17/20 09:16 burning (with CHG wipes) iodine Allergy Intermediate rash (with Verified 05/17/20 09:16 topical iodine) adhesive Allergy Unknown skin Verified 05/17/20 09:16 redness Penicillins Allergy Unknown Unknown Verified 05/17/20 09:16 Sulfa (Sulfonamide Allergy Unknown Unknown Verified 05/17/20 09:16 Antibiotics) diltiazem AdvReac Unknown dizziness Unverified 05/17/20 09:16 Contrast Media Ready-Box MISC AdvReac Unknown dyspnea Uncoded 05/17/20 09:16 Home Medications Home Medications Medication Instructions Recorded Confirmed Type nitroglycerin 0.4 mg sublingual 0.4 mg SL Q5M PRN #25 tab 05/18/19 05/17/20 History tablet cholecalciferol (vitamin D3) 125 5,000 units PO 1200 05/31/19 05/17/20 History mcg (5,000 unit) capsule simvastatin 20 mg tablet 20 mg PO HS #90 tab 09/16/19 05/17/20 Rx vit C 250 mg-E 200 unit-zinc 40 1 tab PO BID 12/08/19 05/17/20 History mg-copper 1 [id number] capsule donepezil 5 mg tablet 5 mg PO HS #90 tab 04/26/20 05/17/20 Rx aspirin [Aspir-81] 81 mg PO QAM 05/01/20 05/17/20 History atenolol 25 mg PO 1200 05/01/20 05/17/20 History calcium carbonate-vitamin D3 1 tab PO 1200 05/01/20 05/17/20 History [Calcium 600 + D(3)] loratadine 10 mg PO 1200 05/01/20 05/17/20 History meloxicam 15 mg PO 1200 05/01/20 05/17/20 History multivitamin 1 tab PO 1200 05/01/20 05/17/20 History naproxen sodium [Aleve] 220 mg PO BID 05/01/20 05/17/20 History potassium gluconate 595 mg PO QAM 05/01/20 05/17/20 History verapamil 180 mg PO 1200 05/01/20 05/17/20 History lisinopril 5 mg tablet 5 mg PO DAILY #30 tab 05/17/20 05/17/20 Rx Past Med/Surg History Medical History (Updated 05/31/20 @ 12:48 by Dallin Santiago M.D.) Benign essential tremor Bifascicular block dating back to at least 2017 per [place] EKG records CAD in yurok artery Chronic thoracic aortic dissection No change in the appearance of the short segment dissection in the distal descending thoracic aorta extending to the origin of the SMA per 05/2018 [facility]- under surveillance by cardiology Dyslipidemia Gait instability History of intestinal obstruction remote History of malignant neoplasm of breast s/p XRT History of myocardial infarction 10+ years ago, medical management Hypertension Lung nodule per records/patient unaware Mild cognitive impairment Monoclonal gammopathy of undetermined significance per records/patient unaware Neck pain Neuropathy, peripheral Osteopenia Paroxysmal SVT (supraventricular tachycardia) Sensorineural hearing loss (SNHL) of both ears Sleep apnea per records/patient unaware Surgical History History of bilateral tubal ligation History of colonoscopy S/P appendectomy S/P cataract surgery BILAT S/P cholecystectomy S/P hysterectomy with oophorectomy S/P mastectomy, bilateral FOR H/O BREAST CANCER> 1993> RADIATION WELL S/P tonsillectomy S/P total knee arthroplasty RIGHT Family History Father Cerebral atherosclerosis Prostate cancer Brother Coronary heart disease Hx of CABG Mother Breast cancer Denies family history of Colon cancer Crohn's disease Social History Smoking Status: Former smoker Smoking End Date: Quit 60 years ago; Second Hand Exposure: No; Do You Dip or Chew Tobacco: No; Tobacco Cessation Education Requested by Patient: No Hx Alcohol Use: Yes Alcohol type: wine Hx Substance Use: No Preferred Language: Belgian Communication Ability: Effective Visual Impairment: No Limitations Hearing Ability: Normal Pulpit Operator Required: No Beliefs That Will Affect Care: None marital status: Current Living Situation: Spouse current occupational status: retired Other Information That Helps Us Care for You: No Feels Safe at Home: Yes Safety Concerns: Feels Safe At This Time Seatbelt Use: always Physical Exam Physical Exam: General: The patient appears well developed and well nourished. Awake, alert, and oriented x 3. Appropriate mood and affect. Normal gait and station. Normal coordination and balance. Skin: The skin over the right shoulder shows no lesion or erythema. Inspection/Palpation: Visual inspection reveals no gross deformity of the shoulder. There is no palpable focal swelling. No significant focal tenderness to palpation. Range of Motion: There is limitation in shoulder range of motion due to pain, with palpable crepitus during motion. Stability: There is no gross ligamentous laxity. Strength: Rotator cuff strength is well maintained. Sensation: The patient reports no numbness in the hand. Vascular: Hand is warm and well perfused. No diffuse edema. Results & Data ([facility]) Diagnostic Findings X-rays of the right shoulder show severe arthritic degeneration at the glenohumeral joint. No obvious proximal migration of the humeral head, and no obvious posterior subluxation on the axillary view. MRI of the right shoulder was reviewed. It shows that her rotator cuff is intact. She has a little bit of rotator cuff tendinitis, but no full-thickness or significant partial-thickness tears are visible. No fatty atrophy of the rotator cuff muscle bellies. Again noted is severe glenohumeral joint arthritis.
[~2020-06-01 10:10] MED LIST changes: +ACETAMINOPHEN 500 MG TAB PO SCH; -ASPI81TA28 PO; -ATEN-173 PO; +BUPIVACAINE 0.5 % 5 MG/1 ML PF 10ML VIAL ONE; +CEFAZOLIN 2000MG 2,000 MG/15 ML SYR IV SCH; -CHOL20009 PO; -CLR10 PO; +CeleBREX 200 MG CAP PO SCH; -DOXY25TA21 PO; +FAMOTIDINE 20 MG TAB PO SCH; +GABAPENTIN 300 MG CAP PO SCH; +LR 15ML/HR IV SCH; +METOCLOPRAMIDE HCL 10 MG TABLET PO SCH; -MRLP17X PO; -NAPR-1264 PO; -NTRSL3 UT; -ONDA4TAB10 SL; -ONDA4TAB46 PO; -OXYC-57 PO; -POTA10CA28 PO; -PRLSR20 PO; -SIMV10TA2 PO; +TRANEXAMIC ACID 1,000 MG **IV Pre-op IV SCH; -VERA180T33 PO; +dexAMETHasone 4 MG TAB PO SCH
[2020-06-01] MEDS ORDERED: fentaNYL citrate 100 MCG/2 ML VIAL ONE (10:40)
[2020-06-01] MEDS ORDERED: LIDOCAINE HCL 2% 2 ML VIAL/AMP(20MG/ML) INFIL ONE (10:40)
[2020-06-01] MEDS ORDERED: PROPOFOL IV EMULSION 10 MG/ML 20 ML VIAL IV ONE (10:40)
[2020-06-01] MEDS ORDERED: ONDANSETRON INJ 2 MG/ML 2 ML VIAL ONE (10:40)
[2020-06-01] MEDS ORDERED: DEXAMETHASONE SOD INJ 4 MG/ML VIAL ONE (10:40)
[2020-06-01] MEDS ORDERED: BACITRACIN INJ 50,000 UNIT VIAL ONE (12:02)
[2020-06-01] MEDS ORDERED: BUPIVACAINE 0.5 % 5 MG/1 ML MPF 30ML VIAL ONE (12:03)
[2020-06-01] MEDS ORDERED: EPINEPHrine INJ 1 MG/ML AMP ONE (12:04)
--- NOTE | 2020-06-01 12:11 | History & Physical Bridge Note ---
Date of Service June 01, 2020 History & Physical Bridge Note I have examined the patient, reviewed the History & Physical and in the interval since the performance of the History & Physical I have noted the following changes of clinical significance: no changes noted
[2020-06-01] MEDS ORDERED: ATROPINE SULFATE 0.1 MG/ML 10ML SYR IV PRN (12:23)
[2020-06-01] MEDS ORDERED: ePHEDrine sulfate 50 MG/ML AMP IV PRN (12:23)
[2020-06-01] MEDS ORDERED: ONDANSETRON INJ 2 MG/ML 2 ML VIAL IV PRN ×2 (12:23→16:40)
[2020-06-01] MEDS ORDERED: ePHEDrine sulfate 50 MG/ML SYR ONE (13:13)
[2020-06-01] MEDS ORDERED: ePHEDrine sulfate 50 MG/ML AMP ONE (13:33)
[2020-06-01] MEDS ORDERED: GLYCOPYRROLATE 0.2 MG/ML VIAL ONE (13:34)
[2020-06-01] MEDS ORDERED: LABETALOL HCL IV 5 MG/ML 20ML IV ONE (14:38)
--- NOTE | 2020-06-01 14:59 | Post Operative Brief Note ---
Immediate Post Op Note v1 Date of Surgery June 01, 2020 Pre & Post Diagnosis Operation Date: 06/01/20 12:20 Pre-Op Diagnosis: Primary Osteoarthritis, Right Shoulder Post-Op Diagnosis: Primary Osteoarthritis, Right Shoulder I identified the patient and participated in the time-out.: Yes Procedure Operation Date: 06/01/20 12:20 Actual Procedures p Right Total Shoulder Arthroplasty(Right) - Dallin Santiago M.D. Surgeon Dallin Santiago Team Psychologist None Estimated Blood Loss 75 Findings Consistent with Post-Op Diagnosis
[2020-06-01] MEDS: fentaNYL citrate 100 MCG/2 ML VIAL IV PRN ×4 (15:15→15:30)
--- NOTE | 2020-06-01 15:19 | Operative Report ---
Post Operative Report Pre & Post Diagnosis Operation Date: 06/01/20 12:20 Pre-Op Diagnosis: Right Shoulder Primary Osteoarthritis Post-Op Diagnosis: Right Shoulder Primary Osteoarthritis I identified the patient and participated in the time-out.: Yes Procedure Operation Date: 06/01/20 12:20 Actual Procedures Right Anatomic Total Shoulder Arthroplasty (97066) Open biceps tenodesis (96496) - Dallin Santiago M.D. Surgeon Dallin Santiago Manager Treasury None Estimated Blood Loss 75 Findings Consistent with Post-Op Diagnosis Specimens Humeral head Drains None Anesthesia Type General Regional Complications none Disposition Disposition: Recovery Room Indications Ms. Stroud is an 80-year-old female with severe right shoulder pain. History, clinical exam, and imaging were consistent with the above diagnosis. Risks, benefits, and alternatives of surgery were explained in detail. The patient understood all this and wished to proceed. Description of Procedure Components Implanted: Tornier Anatomic Total Shoulder implants Perform Pegged Cortiloc polyethylene glenoid: Small 30mm radius Ascend Flex humeral stem: 2B Standard length (70mm) Humeral head: 42 x 18mm high offset Patient was identified in the preoperative holding area. Operative extremity was marked. Regional blockade was given by the Anesthesia Staff. Patient was then brought back to the operating room, and general anesthesia was induced without complication. Appropriate weight-based dose of Ancef was infused intravenously for antibiotic prophylaxis. The patient was then placed in the beachchair position. Right arm was then prepped and draped in a standard sterile fashion using Chlorhexidine prep. A standard deltopectoral incision was made through the skin and subcutaneous tissue. The cephalic vein was identified and retracted medially. Small branches to the deltoid were coagulated as necessary. The clavipectoral fascia was then incised and the subdeltoid space was opened. The rotator cuff was found to be intact, and I therefore decided to perform an anatomic total shoulder arthroplasty as planned preoperatively. The biceps tendon was identified within the bicipital groove and tenodesed at the superior border of the pectoralis tendon with #2 FiberWire suture. The biceps tendon was then divided proximal to the tenodesis site and the rotator interval was opened. The proximal portion of the biceps tendon was excised. Lesser tuberosity osteotomy was then performed to detach the subscapularis off of the proximal humerus; this was tagged with a #0 Vicryl suture. The glenohumeral joint was then dislocated, and large osteophytes were debrided with a ronguer. The humeral head cut was then made in the appropriate inclination and version using the cutting guide. The intramedullary canal of the humerus was then opened with a canal finder. The humeral canal was then sequentially broached to the appropriate size. A protective cap was then placed on top of the humeral trial. I then turned my attention to the glenoid. The proximal stump of the biceps tendon was excised, along with the labrum circumferentially around the glenoid. The Blueprint drill guide was then positioned on the glenoid, and the guidepin was then inserted. The reamer was then inserted over the guidepin and an reamed to an appropriate depth. The central peg drill hole was made over the guidewire. The drill guide for the peripheral glenoid pegs was then placed onto the glenoid surface, and 3 peripheral drill holes made within the glenoid in an appropriate orientation. Morselized cancellous bone was packed into the fins of the Cortiloc central peg, and bone cement was placed into the 3 peripheral glenoid peg holes. The glenoid component was then implanted into place, and excess cement removed. A trial humeral head was placed on the trial humeral stem, and a trial reduction was carried out. Once I achieved acceptable joint stability and range of motion with the trial implants, the final humeral implants were assembled on the back table and then impacted into position. Prior to final impaction of the humeral stem, I looped #5 FiberWire sutures around the humeral stem for subsequent repair of the lesser tuberosity osteotomy. I then took the shoulder through full range of motion to ensure good stability and acceptable motion. Wound was then copiously irrigated with sterile saline. The lesser tuberosity and its attached subscapularis were then repaired to the lesser tuberosity with the previously placed #5 FiberWire sutures. The rotator interval was then closed with the shoulder held in external rotation with #2 FiberWire suture. Deep fascia was closed with 0 V-lock suture. Subcutaneous tissue was closed with 2-0 V-lock, and skin was closed with 3-0 V-lock. Skin was then sealed with Dermabond. Sterile dressings were then applied with a waterproof silver- impregnated dressing, and the arm was placed into a sling. The patient was awakened from anesthesia and taken to the Post Anesthesia Care Unit in stable condition. There were no immediate complications from the procedure. I was present and scrubbed for the entire procedure. I attest to the content of the Intraoperative Record and any orders documented therein. Any exceptions are noted below.
--- NOTE | 2020-06-01 16:07 | XRay Report ---
XR shoulder RT min 2V routine CLINICAL HISTORY: Post shoulder surgery COMPARISON STUDY: Right shoulder 02/17/2017. FINDINGS: Status post a right shoulder arthroplasty. The hardware appears intact. No acute fracture o r dislocation. Surgical clips noted within the right axilla. IMPRESSION: Status post right shoulder arthroplasty. No evidence for hardware complication. ACT 112: Negative or not required by law. Electronically signed by: Keith Cohen M.D. 06/01/2020 4:06 PM
[2020-06-01] MEDS ORDERED: NITROGLYCERIN SL 0.4 MG/TAB TAB SL PRN (16:40)
[2020-06-01] MEDS ORDERED: MAGNESIUM HYDROXIDE SUSP 30 ML UDC PO PRN (16:40)
[2020-06-01] MEDS ORDERED: bisacodyL 10 MG SUPP PR PRN (16:40)
[2020-06-01] MEDS ORDERED: SODIUM CHLORIDE 0.9% 1000ML 1,000 ML IV SCH (16:40)
[2020-06-01] MEDS ORDERED: METOCLOPRAMIDE HCL INJ 5 MG/ML 2 ML VIAL IV PRN (16:40)
[2020-06-01] MEDS ORDERED: OXYCODONE HCL IR 5 MG TAB (IMMEDIATE RELEASE) PO PRN (16:40)
[2020-06-01] MEDS ORDERED: NALOXONE HCL 0.4 MG/1 ML VIAL/CARP IV PRN (16:40)
--- NOTE | 2020-06-01 17:09 | Anesthesiology Progress Note ---
Date of Service June 01, 2020 Anesthesia Post Procedure Vital Signs Vital Signs: Temp Pulse Pulse Resp BP Pulse Ox 06/01/20 16:57 36.5 C 74 16 155/90 H 98 06/01/20 16:30 36.7 C 78 15 167/93 H 97 06/01/20 16:10 36.6 C 62 16 150/85 H 97 06/01/20 15:55 36.6 C 62 16 172/88 H 97 06/01/20 15:45 36.6 C 57 L 16 169/66 H 96 06/01/20 15:35 76 16 158/88 H 97 06/01/20 15:25 63 16 150/77 H 95 06/01/20 15:15 73 16 128/79 96 06/01/20 15:06 36.5 C 78 16 115/85 97 06/01/20 11:40 36.6 C 64 18 160/88 H 95 06/01/20 10:42 36.5 C 58 L 18 173/91 H 96 Pain Intensity Right Shoulder: Pain Intensity: 8 Transfer of Care Handoff Completed per policy Notes Mental Status: alert / awake / arousable Patient Amnestic to Procedure: Yes Nausea / Vomiting: adequately controlled Pain: adequately controlled Airway Patency, RR, SpO2: stable & adequate BP & HR: stable & adequate Hydration State: stable & adequate Anesthetic Complications: no major complications apparent
[2020-06-01] MEDS: ACETAMINOPHEN 500 MG TAB PO SCH ×2 (18:17→23:29)
[2020-06-01] MEDS: CEFAZOLIN 2000MG 2,000 MG/15 ML SYR IV SCH (20:47)
[2020-06-01] MEDS: DOCUSATE SODIUM 100 MG CAP PO SCH (20:47)
[2020-06-01] MEDS: IBUPROFEN 600 MG TAB PO SCH (20:47)
[2020-06-01] MEDS: CEROVITE ADV FORMULA TAB PO SCH (20:47)
[2020-06-01] MEDS ORDERED: SIMVASTATIN 20 MG TAB PO SCH (21:00)
[2020-06-01] MEDS ORDERED: DONEPEZIL HCL 5 MG TAB PO SCH (21:00)
[2020-06-01] MEDS ORDERED: SENNA 8.6 MG TAB PO SCH (21:00)
[2020-06-02] MEDS: CEFAZOLIN 2000MG 2,000 MG/15 ML SYR IV SCH (02:43)
[2020-06-02] MEDS: IBUPROFEN 600 MG TAB PO SCH ×2 (02:44→08:37)
[2020-06-02] MEDS: ACETAMINOPHEN 500 MG TAB PO SCH (04:27)
[2020-06-02 06:02] LABS: Hematocrit (blood only) 38.2 % (37-47); Hemoglobin 12.5 g/dL (12.0-16.0); Immature Granulocytes # (auto) 0.03 K/uL (0.00-0.02); Immature Granulocytes % (auto) 0.3 %; Lymphocytes # (auto) 0.74 K/uL (1.2-3.4); Mean Corpuscular Hemoglobin 33.3 pg (25-34); Mean Corpuscular Hgb Conc 32.7 g/dL (32-36); Mean Corpuscular Volume 101.9 fL (80-100); Mean Platelet Volume 9.9 fL (7.4-10.4); Monocytes # (auto) 1.12 K/uL (0.11-0.59); Monocytes % (auto) 12.1 %; Neutrophils # (auto) 7.34 K/uL (1.4-6.5); Neutrophils % (auto) 79.6 %; Platelet Count 135 K/uL (130-400); RDW Coefficient of Variation 12.5 % (11.5-14.5); RDW Standard Deviation 45.5 fL (36.4-46.3); Red Blood Count 3.75 M/uL (4.2-5.4); White Blood Count 9.23 K/uL (4.8-10.8)
[2020-06-02 06:29] LABS: BUN Creatinine Ratio 22.8 (10-20); Calcium 8.9 mg/dl (8.5-10.1); Creatinine Clr Calc Pharmacy 51.1 ml/min; Est GFR (African American) 81.9; Est GFR (Non-African American) 70.7; Potassium 4.3 mmol/L (3.5-5.1)
--- NOTE | 2020-06-02 08:23 | Anesthesiology Progress Note ---
Date of Service June 02, 2020 Anesthesia Post Procedure Vital Signs Vital Signs: Temp Pulse Pulse Resp BP Pulse Ox 06/02/20 07:47 36.7 C 63 18 149/85 H 96 06/02/20 07:16 36.3 C L 58 L 18 167/89 H 95 06/02/20 02:57 36.6 C 62 16 158/81 H 98 06/01/20 23:03 36.5 C 75 16 169/81 H 97 06/01/20 19:33 36.6 C 76 16 162/87 H 94 06/01/20 18:33 36.4 C L 74 16 137/83 95 06/01/20 17:25 36.5 C 73 16 160/91 H 97 06/01/20 16:57 36.5 C 74 16 155/90 H 98 06/01/20 16:30 36.7 C 78 15 167/93 H 97 06/01/20 16:10 36.6 C 62 16 150/85 H 97 06/01/20 15:55 36.6 C 62 16 172/88 H 97 06/01/20 15:45 36.6 C 57 L 16 169/66 H 96 06/01/20 15:35 76 16 158/88 H 97 06/01/20 15:25 63 16 150/77 H 95 06/01/20 15:15 73 16 128/79 96 06/01/20 15:06 36.5 C 78 16 115/85 97 06/01/20 11:40 36.6 C 64 18 160/88 H 95 06/01/20 10:42 36.5 C 58 L 18 173/91 H 96 Notes Mental Status: alert / awake / arousable Patient Amnestic to Procedure: Yes Nausea / Vomiting: adequately controlled Pain: adequately controlled Airway Patency, RR, SpO2: stable & adequate BP & HR: stable & adequate Hydration State: stable & adequate Anesthetic Complications: no major complications apparent and Pt Satisfied with anesthetic care
[2020-06-02] MEDS: CEROVITE ADV FORMULA TAB PO SCH (08:36)
[2020-06-02] MEDS: DOCUSATE SODIUM 100 MG CAP PO SCH (08:36)
--- NOTE | 2020-06-02 08:38 | Orthopedic Progress Note ---
Date of Service June 02, 2020 Assessment & Plan (1) Primary osteoarthritis, right shoulder: Postop day 1 status post right total shoulder arthroplasty. PT/OT protocols. Nonweightbearing right upper extremity. DVT prophylaxis-aspirin p.o. daily, SCDs Pain management as written. Discharge planning-planning for outpatient PT upon discharge. Admission and Anticipated Discharge Date Admission Date: June 01, 2020 Subjective Postop day 1 Patient is currently sitting at the edge of her bed. Awake and alert. She states she feels comfortable at this time. Denies any shortness of breath, chest pain, lightheadedness. Pain is controlled. States she has some residual numbness left in her right index finger. No other complaints at this time. Physical Exam Physical Exam: Silverlon dressing is clean, dry, and intact. She has good range of motion of her right wrist and fingers. She has good strength with handgrip. Cap refill is less than 2 seconds. She has some mild decrease sensation in her index finger. Results & Data ([facility]) Vital Signs (Past 12 Hours) Vital Signs Temp Pulse Resp BP Pulse Ox 06/02/20 07:47 36.7 C 63 18 149/85 H 96 06/02/20 07:16 36.3 C L 58 L 18 167/89 H 95 06/02/20 02:57 36.6 C 62 16 158/81 H 98 06/01/20 23:03 36.5 C 75 16 169/81 H 97 Laboratory Results Laboratory Results WBC 9.23 K/uL (4.8-10.8) 06/02/20 05:45 RBC 3.75 M/uL (4.2-5.4) L 06/02/20 05:45 Hgb 12.5 g/dL (12.0-16.0) 06/02/20 05:45 Hct 38.2 % (37-47) 06/02/20 05:45 MCV 101.9 fL (80-100) H 06/02/20 05:45 MCH 33.3 pg (25-34) 06/02/20 05:45 MCHC 32.7 g/dL (32-36) 06/02/20 05:45 RDW Std Deviation 45.5 fL (36.4-46.3) 06/02/20 05:45 RDW Coeff of Jose 12.5 % (11.5-14.5) 06/02/20 05:45 Plt Count 135 K/uL (130-400) 06/02/20 05:45 MPV 9.9 fL (7.4-10.4) 06/02/20 05:45 Immature Gran % (Auto) 0.3 % 06/02/20 05:45 Neut % (Auto) 79.6 % 06/02/20 05:45 Lymph % (Auto) 8.0 % 06/02/20 05:45 [place] % (Auto) 12.1 % 06/02/20 05:45 Eos % (Auto) 0.0 % 06/02/20 05:45 Baso % (Auto) 0.0 % 06/02/20 05:45 Neut # (Auto) 7.34 K/uL (1.4-6.5) H 06/02/20 05:45 Lymph # (Auto) 0.74 K/uL (1.2-3.4) L 06/02/20 05:45 [place] # (Auto) 1.12 K/uL (0.11-0.59) H 06/02/20 05:45 Eos # (Auto) 0.00 K/uL (0-0.5) 06/02/20 05:45 Baso # (Auto) 0.00 K/uL (0-0.2) 06/02/20 05:45 Immature Gran # (Auto) 0.03 K/uL (0.00-0.02) H 06/02/20 05:45 PT 10.3 Seconds (9.0-12.0) 05/04/20 11:01 INR 1.0 (0.9-1.1) 05/04/20 11:01 APTT 24.8 Seconds (21.0-31.0) 05/04/20 11:01 PTT Ratio 0.9 05/04/20 11:01 Sodium 136 mmol/L (136-145) 06/02/20 05:45 Potassium 4.3 mmol/L (3.5-5.1) 06/02/20 05:45 Chloride 103 mmol/L (98-107) 06/02/20 05:45 Carbon Dioxide 28 mmol/L (21-32) 06/02/20 05:45 Anion Gap 5.0 (3-11) 06/02/20 05:45 BUN 18 mg/dl (7-18) 06/02/20 05:45 Creatinine 0.79 mg/dl (0.6-1.2) 06/02/20 05:45 Est Cr Clr Drug Dosing 51.1 ml/min 06/02/20 05:45 Est GFR ( Amer) 81.9 06/02/20 05:45 Est GFR (Non-Af Amer) 70.7 06/02/20 05:45 BUN/Creatinine Ratio 22.8 (10-20) H 06/02/20 05:45 Glucose 137 mg/dl (70-99) H 06/02/20 05:45 Estimat Average Glucose 85 mg/dl 05/04/20 11:01 Hemoglobin A1c 4.6 % (4.5-5.6) 05/04/20 11:01 Calcium 8.9 mg/dl (8.5-10.1) 06/02/20 05:45 Albumin 3.6 gm/dl (3.4-5.0) 05/04/20 11:01 Urine Color Yellow 05/08/20 04:00 Urine Appearance Clear (Clear) 05/08/20 04:00 Urine pH 7.0 (4.5-7.5) 05/08/20 04:00 Ur Specific [place] 1.011 (1.000-1.030) 05/08/20 04:00 Urine Protein Negative (Negative) 05/08/20 04:00 Urine Glucose (UA) Negative (Negative) 05/08/20 04:00 Urine Ketones Negative (Negative) 05/08/20 04:00 Urine Blood Negative (Negative) 05/08/20 04:00 Urine Nitrite Negative (Negative) 05/08/20 04:00 Urine Bilirubin Negative (Negative) 05/08/20 04:00 Urine Urobilinogen Negative (Negative) 05/08/20 04:00 Ur Leukocyte Esterase 2+ (Negative) H 05/08/20 04:00 Urine WBC (Auto) >30 /hpf (0-5) H 05/08/20 04:00 Urine RBC (Auto) 0-4 /hpf (0-4) 05/08/20 04:00 U Hyaline Cast (Auto) 0 /lpf (0-5) 05/08/20 04:00 U Epithel Cells (Auto) 0-5 /lpf (0-5) 05/08/20 04:00 Urine Bacteria (Auto) Negative (Negative) 05/08/20 04:00 Blood Type O Negative 05/04/20 11:01 Antibody Screen NEGATIVE 05/04/20 11:01
[2020-06-02] MEDS ORDERED: NON-FORMULARY MEDICATION (Potassium Gluconate 595 MG) PO SCH (09:00)
[2020-06-02] MEDS ORDERED: ASPIRIN 325 MG ECTAB PO SCH (09:00)
[2020-06-02] MEDS ORDERED: lisinopriL 5 MG TAB PO SCH (09:00)
[2020-06-02] MEDS ORDERED: MULTIVITAMIN TAB PO SCH ×2 (09:00→12:00)
[2020-06-02] MEDS ORDERED: ATENOLOL 25 MG TABLET PO SCH (12:00)
[2020-06-02] MEDS ORDERED: LORATADINE 10 MG TAB PO SCH (12:00)
[2020-06-02] MEDS ORDERED: VERAPAMIL HCL 180 MG TABCR PO SCH (12:00)
[2020-06-02] MEDS ORDERED: CALCIUM 600MG + VIT D 400 IU TAB PO SCH (12:00)
[2020-06-02] MEDS ORDERED: CHOLECALCIFEROL 1,000 UNITS 25 MCG TAB PO SCH (12:00)
--- NOTE | 2020-06-09 13:40 | Discharge Summary ---
Date of Service June 09, 2020 Admission HPI Per Admitting Provider Ms. Stroud is a 79-year old [id number] female with severe, progressively worsening right shoulder pain for many years. She has had multiple injections into her right shoulder, but thinks less than 5. The in jections give her minimal benefit of only about a week at this point. This shoulder pain is severely limiting her activities of daily living. It frequently wakes her up. She has had a few falls over the years, but no obvious traumatic injury to the right shoulder that caused severe worsening of her pain or function. Principal Diagnosis Right shoulder arthritis Discharge Data Allergies Allergy/AdvReac Type Severity Reaction Status Date / Time chlorhexidine Allergy Intermediate severe Verified 06/01/20 10:32 burning (with CHG wipes) iodine Allergy Intermediate rash (with Verified 06/01/20 10:32 topical iodine) adhesive Allergy Unknown skin Verified 06/01/20 10:32 redness Penicillins Allergy Unknown Unknown Verified 06/01/20 10:32 Sulfa (Sulfonamide Allergy Unknown Unknown Verified 06/01/20 10:32 Antibiotics) diltiazem AdvReac Unknown dizziness Unverified 06/01/20 10:32 Contrast Media Ready-Box MISC AdvReac Unknown dyspnea Uncoded 06/01/20 10:32 Procedures Performed Operation Date: 06/01/20 12:20 Actual Procedures p Right Total Shoulder Arthroplasty(Right) - Dallin Santiago M.D. Ordered Studies 06/01/20 05:00 US - OR guided needle placemen Routine Hospital Course (1) Primary osteoarthritis, right shoulder: She underwent a right total shoulder arthroplasty on 06/01/20. She tolerated the procedure well and was transferred up to the general orthopedic surgery floor in stable condition. Perioperative antibiotic coverage was initiated, and continued for 24 hours postoperatively. She was started on DVT prophylaxis consisting of SCDs and aspirin 325 mg daily. She was started on perioperative pain control regimen, which was transitioned to strictly oral pain medications by postoperative day 1. On postoperative day 1 she was doing very well. Pain was well controlled, and she was mobilizing well with therapy. She was determined be safe and ready for discharge to home. Total Time Total Time Spent Total Time Spent (In Minutes): 5 Discharge Plan Discharge Items Patient Disposition: Home - Self-Care Reason For Visit: Primary Osteoarthritis, Right Shoulder Discharge Diagnosis: Right shoulder arthritis Activity: Per Instructions section Weightbearing: Right non-weightbearing Non-emergency contact: Surgeon Call non-emergency contact if: your pain is not controlled, your temperature is above 101.5 and your wound has increased redness Follow-up/Referrals: Mitra Jameson MD [Primary Care Provider] - Dallin Santiago M.D. [Physician] - Diet: Regular Addtl Attending Provider Instructions: Things to Watch Out For -Go to the Emergency Room if you have sudden onset of nausea, vomiting, chest pain, shortness of breath, or uncontrollable pain. -Call the clinic or go to the Emergency Room if you have a sudden increase in the amount of wound drainage or the drainage becomes thick, yellow or green, or foul-smelling. -For routine questions, call the clinic at [phone] during regular business hours (8am-5pm). For urgent issues after regular business hours, you may call the clinic to be connected to the on-call physician. Dressings -A special waterproof, silver-impregnated dressing was placed on your shoulder. Keep this dressing in place for 1 week after surgery. You may shower with the waterproof dressing in place, but do not soak the dressing in the bathtub or pool. -One week after surgery, you may remove the waterproof dressing. You may continue to shower, and let water run BRIEFLY over the incision, but do not soak the incision in the bathtub or pool for 2 weeks. You may also gently clean the incision with mild soap and water; pat the incision dry after cleaning-do not rub the incision. Apply a new dressing daily thereafter. Shoulder Exercises -Keep your operative shoulder in the sling for comfort, except as detailed below. -You should come out of the sling 4-5 times a day for passive pendulum exercises: lean over and swing your arm in a circular pattern. -You should also do active-assisted forward flexion exercises: use your opposite hand to lift your operative arm forward to 90 degrees. -Do not use your arm to push yourself up out of bed or up from a seated position. -Do not flex your elbow (curl motion) or supinate your forearm (rotating palm up) against resistance. -Subscapularis repair: Do not externally rotate your arm past neutral rotation (forearm pointed straight out from your body) or internally rotate your arm (pull your forearm towards your body) against resistance. Do not abduct your shoulder past 90 degrees (bring your arm out to the side past shoulder level). Ice Pack -You may use an ice pack for pain relief. You should use it 20-30 minutes at a time. Place a towel between the ice pack and your skin to prevent frostbite. -You should use the ice pack fairly regularly for the first 1-2 weeks after surgery to help reduce pain and inflammation. -About 2 weeks after your surgery, you should start using heat to loosen up your shoulder prior to doing your stretching exercises, then use the cooling sleeve after your exercises are complete to reduce swelling and pain. Pain Medicines -You have been prescribed an anti-inflammatory (Motrin/ibuprofen) and a non- narcotic pain medicine (Tylenol/acetaminophen). These are your primary pain medications. Take them each every 6 hours as instructed. It is recommended that you stagger these medicines every 3 hours (i.e. take ibuprofen at 8:00 am, then acetaminophen at 11:00 am, then ibuprofen at 2:00 pm, etc) -DO NOT take any additional anti-inflammatories (Advil, Aleve/naproxen, Mobic/meloxicam, Celebrex) or any additional Tylenol/acetaminophen products with these prescribed medications. -You have also been prescribed an additional narcotic pain medication (oxycodone). Take this medicine ONLY for breakthrough pain not controlled by the ibuprofen and acetaminophen. -Do not drive or operate heavy machinery while taking the narcotic medication. -Common side effects of narcotic pain medicines include itching, nausea, constipation, and feeling "loopy". However, if you develop a rash or hives, stop taking the medicine and call the clinic. If you develop swelling in your throat or difficulty breathing, go to the Emergency Room or call 911 IMMEDIATELY. -You may take over the counter stool softeners if needed for constipation. Aspirin -Take a full strength (325mg) aspirin every day for 4 weeks (28 days) to prevent blood clots. -If you were taking a baby aspirin (81mg) prior to surgery, you may resume taking this 81mg dose after you complete the 28-day course of the 325mg strength dose; do not take the 325mg dose in addition to your 81mg dose. -Be aware that you will bruise easier while taking Aspirin; this is normal. However, if you develop a significantly large area of swelling after an injury, or have a cut that will not stop bleeding, call the clinic or go to the Emergency Room immediately. Pending Studies at Discharge: No Stand-Alone Forms: My [facility] Medications and DC Order Prescriptions: New acetaminophen 500 mg Tablet 500 mg PO Q6 14 Days Qty: 56 RF: 0 aspirin [Ecotrin] 325 mg Tablet,Delayed Release (Dr/Ec) 325 mg PO QAM 30 Days Qty: 30 RF: 0 Continued simvastatin 20 mg tablet 20 mg PO HS Qty: 90 RF: 3 PreserVision AREDS-2 [id number]-mg capsule 1 tab PO BID RF: 0 lisinopril 5 mg tablet 5 mg PO DAILY Qty: 30 RF: 5 nitroglycerin 0.4 mg tablet, sublingual 0.4 mg SL Q5M PRN (Reason: chest pain) Qty: 25 RF: 0 cholecalciferol (vitamin D3) 5,000 unit capsule 5,000 units PO 1200 RF: 0 donepezil 5 mg tablet 5 mg PO HS Qty: 90 RF: 1 multivitamin Tablet 1 tab PO 1200 RF: 0 calcium carbonate-vitamin D3 [Calcium 600 + D(3)] 600 mg(1,500mg) -200 unit Tablet 1 tab PO 1200 RF: 0 loratadine 10 mg Tablet 10 mg PO 1200 RF: 0 atenolol 25 mg tablet 25 mg PO 1200 RF: 0 verapamil 180 mg capsule,ext rel. pellets 24 hr 180 mg PO 1200 RF: 0 potassium gluconate 595 mg (99 mg) tablet 595 mg PO QAM RF: 0 Discontinued aspirin [Aspir-81] 81 mg Tablet,Delayed Release (Dr/Ec) 81 mg PO QAM RF: 0 naproxen sodium [Aleve] 220 mg Tablet 220 mg PO BID RF: 0 meloxicam 15 mg tablet 15 mg PO 1200 RF: 0 Discharge Orders: Discharge Order (Routine); Ordered 06/02/20 Ordered By: Fernando Luciano Admission Data Admit Date/Time: 06/01/20 15:35 Attending Provider: Dallin Santiago Admit Provider: Dallin Santiago Primary Care Provider: Mitra Jameson V. Other Interventions: Discharge Summary Assessment (RN) Last Done: 06/02/20 09:34
== END 2020-06-02 11:21 | disposition home or self-care (01) | DRG 483 ==
LOC: ASU 10:10 → 3E 15:35